=== PATIENT | male | born 1950 | race Caucasian/White ===

== ENCOUNTER → 2019-10-15 09:27 | Outpatient (CLI) | payer MEDICARE, SELFPAY ==
[2019-09-16 13:42] VITALS: BMI 27.0
--- NOTE | 2019-10-15 09:32 | ECHOD_ITS ---
Version 2 Reason For Study: Dyspnea/SOB Procedure This was a 2D Doppler, Color Flow transthoracic echocardiogram. Exam performed in department. Left Ventricle Normal LV size. The estimated ejection fraction is 40-45 %. Stage 2 diastolic dysfunction. There is moderate global hypokinesis of the left ventricle. Right Ventricle Normal RV size. Normal systolic function. Atria The left atrium is moderately enlarged. Normal right atrium. No doppler evidence for ASD. Mitral Valve There is no mitral valve stenosis. Mild (1+) mitral valve insufficiency. Tricuspid Valve There is no tricuspid stenosis. Mild tricuspid valve insufficiency. Pulmonary artery systolic pressure is 65 mmHg. Aortic Valve Trisinus/trileaflet aortic valve. Mild diffuse aortic valve thickening. There is no aortic stenosis. Trivial aortic valve insufficiency. Pulmonic Valve There is no pulmonic valvular stenosis. Trivial pulmonic valve insufficiency. Great Vessels Normal aortic root. Pericardium/Pleural No pericardial effusion. MMode/2D Measurements & Calculations LVIDd: 5.0 cm IVSd: 1.8 cm LA dimension: 4.8 cm LVIDs: 4.1 cm LVPWd: 1.2 cm RVDd: 5.3 cm FS: 19.3 % LAV(MOD-bp): 86.9 ml LVAd ap4: 43.8 cm2 SV(MOD-sp4): 51.2 ml LAV(MOD-bp) Indexed: 44.0 ml/m2 EDV(MOD-sp4): 159.1 ml LAV(MOD-sp2): 88.6 ml EDV(sp4-el): 166.2 ml LAV(MOD-sp4): 82.0 ml LVAs ap4: 35.9 cm2 ESV(MOD-sp4): 107.9 ml ESV(sp4-el): 112.8 ml EF(MOD-sp4): 32.2 % EF(sp4-el): 32.1 % SV(sp4-el): 53.4 ml LA A4 area: 24.5 cm2 RA A4 area: 17.2 cm2 Time Measurements MV dec time: 0.17 sec Doppler Measurements & Calculations MV E max diana: 115.9 cm/sec MV V2 max: 129.6 cm/sec MV P1/2t max diana: 130.3 cm/sec MV A max diana: 56.2 cm/sec MV max P.7 mmHg MV P1/2t: 96.6 msec MV E/A: 2.1 MV V2 mean: 64.7 cm/sec MV mean P.0 mmHg MV dec slope: 395.1 cm/sec2 MV V2 VTI: 36.8 cm MVA(P1/2t): 2.3 cm2 Ao V2 max: 143.7 cm/sec LV V1 max: 103.9 cm/sec MR max diana: 610.6 cm/sec Ao max P.3 mmHg LV V1 max P.3 mmHg MR max P.1 mmHg MR mean diana: 417.3 cm/sec MR mean P.0 mmHg MR VTI: 198.6 cm PA V2 max: 76.0 cm/sec TR max diana: 388.9 cm/sec TR max P.5 mmHg Interpretation Summary The estimated ejection fraction is 40-45 %. Stage 2 diastolic dysfunction. Mild (1+) mitral valve insufficiency. Mild tricuspid valve insufficiency. Pulmonary artery systolic pressure is 65 mmHg. Trivial aortic valve insufficiency. Mild diffuse aortic valve thickening. The left atrium is moderately enlarged. Ordering Physician: Medhat Dela Referring Physician: Medhat Deal Performed By: Matthew Kennedy RCS
== END ==
PROVIDERS: Family Provider Family Medicine; PCP Family Medicine; Referring Provider Specialist; Visit Provider Specialist
DX: R06.09 Other forms of dyspnea (principal)
CPT/HCPCS: 93306

== ENCOUNTER → 2019-10-25 14:22 | Outpatient (CLI) | payer MEDICARE, SELFPAY ==
[2019-09-16 13:42] VITALS: BMI 27.0
[2019-10-25 16:20] LABS: ALB/GLOB Ratio 1.4 RATIO (0.9-2.4); AST(SGOT) 18 U/L (15-37); Alanine Aminotransfer ALT/SGPT 19 U/L (16-61); Alkaline Phosphatase 70 U/L (45-117); Anion Gap 4 (5-15); BUN 21 mg/dL (7-18); BUN/Creat Ratio 18.6 RATIO (10-20); Calcium,Total 9.3 mg/dL (8.5-10.1); Chloride 103 mmol/L (98-107); Creatinine, Serum 1.13 mg/dL (0.70-1.30); EST Glomerular Filtration Rate 69 mL/min (>60); Est Glom Filt Rate - Afr Amer 83 mL/min (>60); Globulin 2.9 g/dL (2.2-4.2); Glucose 86 mg/dL (74-106); Potassium 3.6 mmol/L (3.5-5.1); Protein, Total 6.9 g/dL (6.4-8.2); Sodium Level 143 mmol/L (136-145)
== END ==
PROVIDERS: Family Provider Family Medicine; PCP Family Medicine; Referring Provider Specialist; Visit Provider Specialist
DX: I25.10 Atherosclerotic heart disease of native coronary artery without angina pectoris (principal); E78.5 Hyperlipidemia, unspecified; R60.9 Edema, unspecified; Z95.1 Presence of aortocoronary bypass graft; I10 Essential (primary) hypertension
CPT/HCPCS: 36415; 80053

== ENCOUNTER → 2019-12-05 06:51 | Outpatient (CLI) | payer MEDICARE, SELFPAY ==
[2019-11-19 14:04] VITALS: BMI 27.1
[2019-12-05 07:36] LABS: Anion Gap 3 (5-15); BUN 22 mg/dL (7-18); BUN/Creat Ratio 17.9 RATIO (10-20); Calcium,Total 9.5 mg/dL (8.5-10.1); Chloride 105 mmol/L (98-107); Creatinine, Serum 1.23 mg/dL (0.70-1.30); EST Glomerular Filtration Rate 62 mL/min (>60); Est Glom Filt Rate - Afr Amer 75 mL/min (>60); Glucose 101 mg/dL (74-106); Potassium 3.7 mmol/L (3.5-5.1); Sodium Level 141 mmol/L (136-145)
--- NOTE | 2019-12-05 14:38 | STRESSREP_ITS ---
Stress Test Report Date: 12/05/2019 Procedure: Exercise tolerance test/imaging study Indications: CAD status post CABG Consent: Per the patient Procedure: The patient exercised on a Jose Luis protocol for 8 minutes achieving a peak heart rate of 137 bpm (90 % predicted maximal heart rate) with a peak blood pressure 180/82 mmHg and a peak MET capacity of 10.1 METs. The baseline ECG demonstrated normal sinus rhythm, right bundle branch block, left anterior fascicular block. The peak exercise ECG demonstrated sinus tachycardia with no significant ischemic changes. EKG during recovery revealed no significant ischemic changes [There were no cardiac dysrhythmias pretest, during exercise, or recovery]. The functional capacity was considered normal for age. There was [no complaint of chest discomfort during exercise or recovery]. The examination was discontinued secondary to dyspnea. Impression: 1. Technically adequate (percent predicted maximal heart rate greater than 85%) exercise tolerance test 2. Stress test is negative for exercise-induced EKG changes of ischemia 3. The test test is negative for exercise-induced chest pain 4. Functional capacity is normal for age 5. Nuclear images pending Myocardial perfusion imaging study: Technique: The patient was injected with 12 mCi of technetium 99m Cardiolite and subs equently rest SPECT Cardiolite nuclear imaging was obtained in the horizontal long, vertical long, and short axis views. The patient exercised on a Jose Luis protocol. Please see above for details. The patient was injected with 34.6 mCi of technetium 99m Cardiolite and subsequently stress SPECT Cardiolite nuclear imaging was obtained in the horizontal long, vertical long, and short axis views. A gated Cardiolite study at peak stress was obtained. Interpretation: Rest and stress SPECT Cardiolite nuclear imaging status post realignment, normalization, and attenuation correction, demonstrates severely decreased to absent radioisotope uptake in the apex on both the rest and stress images. There is mildly decreased radioisotope uptake in the inferior wall on both the rest and stress images. The gated Cardiolite study demonstrates apical and inferior hypokinesis. The reported LVEF is 51 %. These findings are suggestive of prior inferior and apical myocardial infarction with no evidence of significant ischemia Impression: 1. There is no evidence of significant ischemia. Prior apical and inferior infarction. 2. The gated Cardiolite study reports an LVEF of 51 % with wall motion abnormalities as described This note was generated with [employer] software. It may contain incorrect words, spelling, and punctuation that were not noted in checking the note before signing.
== END ==
PROVIDERS: Family Provider Family Medicine; PCP Family Medicine; Referring Provider Specialist; Visit Provider Specialist
DX: I10 Essential (primary) hypertension (principal); I25.10 Atherosclerotic heart disease of native coronary artery without angina pectoris; I45.10 Unspecified right bundle-branch block; I42.9 Cardiomyopathy, unspecified; E78.5 Hyperlipidemia, unspecified; R06.09 Other forms of dyspnea; Z95.1 Presence of aortocoronary bypass graft
CPT/HCPCS: 36415; 78452; 80048; 93017; A9500; A4216

== ENCOUNTER 2021-04-09 10:23 | Inpatient (IN) | payer MEDICARE, SELFPAY ==
[2020-07-01 10:47] VITALS: BMI 27.3
[2021-04-09] VITALS (31 sets, daily range): BP systolic 75–226; BP diastolic 50–117; PULSE 60–111; RESP 12–91; TEMP 35.9–38; O2SAT 6–100; BMI 31.4; BMI 28.5
--- NOTE | 2021-04-09 10:26 | NURSING ---
NO OLD EKGS
--- NOTE | 2021-04-09 10:29 | RAD_ITS ---
STUDY: X-RAY CHEST REASON FOR EXAM: Male, 70 years old. Respiratory failure TECHNIQUE: Single AP portable view of the chest. COMPARISON: None. FINDINGS: Median sternotomy. CABG. Cardiomegaly with congestion. Aorta unremarkable. Multifocal hazy airspace opacities. No significant pleural effusions. Elevated left hemidiaphragm. Upper abdomen unremarkable. Osseous structures intact. No pneumothorax. RAD/Chest 1 View (Portable) IMPRESSION: CHF/fluid overload Airspace disease presumed edema Cardiomegaly with cardiac surgery Electronically Signed: Conrado Caal DO at 10:45 EDT Tel , Service support ,
--- NOTE | 2021-04-09 10:29 | EKG12_ITS ---
Test Reason : SOB Blood Pressure : / mmHG Vent. Rate : 101 BPM Atrial Rate : 101 BPM P-R Int : 180 ms QRS Dur : 148 ms QT Int : 378 ms P-R-T Axes : 052 268 059 degrees QTc Int : 490 ms Sinus tachycardia with frequent and consecutive Premature ventricular complexes Right bundle branch block Septal infarct , age undetermined Abnormal ECG Confirmed by PHILIP GARDNER, JAD ([id number]), technical writer and editor BEULAH GREEN ([id number]) on 04/13/2021 1:56:54 PM Referred By: AVINASH Confirmed By:JAD PALACIOS MD
--- NOTE | 2021-04-09 10:32 | ED.VIS.DYS ---
HPI History of Present Illness Chief Complaint: Shortness of Breath Informant: patient, family and EMS Onset/Context/Timing Onset: Hours Context: sudden Timing: Continuous Quality: Positive for - (Dyspnea at rest) Current Severity: Severe Maximum Severity: Severe Worsened by: Exertion and Lying flat Relieved by: Nothing Associated Symptoms Negative for cough, fever, sore throat, chills or sweats Chest Pain: Positive for None Narrative Narrative: Patient is an elderly male with multiple medical problems which include atherosclerotic coronary disease status post three-vessel bypass surgery in the remote past. Per old records he has history of LV dysfunction. He abruptly became short of breath. He denies chest discomfort. He denies infectious type symptoms. He denies rhinorrhea, congestion or postnasal drainage. No sore throat. He denies nausea, vomiting diarrhea. Denies black or maroon-colored stool. He does have dark-colored urine. He does have history of jaundice. He does have orthopnea. He denied PND. He does report edema of his lower extremities. He was unaware that he has a lenticular rash and that he has discoloration of his digits consistent with cyanosis. Per paramedics pulse ox was 71% on room air. Per old records he does have history of right bundle branch block which is noted on the prehospital EKG. PE Risk Factors: Negative for Cancer, Prior DVT or PE, Recent immobilization, Recent surgery and Recent travel Prior similar symptoms: No Recent Illness/Hospitalization: No PFSH PFS Medical History (Updated 04/09/21 @ 13:[address] Jose Luis Olivarez MD) Anxiety Atherosclerosis of coronary artery of [place] heart without angina pectoris CKD (chronic kidney disease) stage 2, GFR 60-89 ml/min Coronary artery disease Deafness in right ear Depression Dyspnea on exertion Edema Essential hypertension Gilbert syndrome Hearing loss, left History of hydrocele Hyperlipidemia Hypertension Myocardial infarct Non-smoker NSTEMI (non-ST elevated myocardial infarction) Orthopnea RBBB (right bundle branch block) Stroke/cerebrovascular accident Home Medications ascorbic acid (vitamin C) 1,000 mg tablet 1 g PO BID tab 09/11/19 [History Last Taken Unknown] aspirin 81 mg chewable tablet 81 mg PO DAILY 09/11/19 [History Last Taken Unknown] multivitamin-ferrous fumarate-folic acid 18 mg-400 mcg tablet 1 tab PO QAM 09/11/19 [History Last Taken Unknown] simvastatin 20 mg tablet 20 mg PO QHS 09/11/19 [History Last Taken Unknown] carvedilol 6.25 mg tablet 6.25 mg PO BID #60 tab 09/16/19 [Rx Last Taken Unknown] glucosamine-chondroitin 250 mg-200 mg tablet 2 tab PO DAILY tab 09/16/19 [History Last Taken Unknown] hydrochlorothiazide 50 mg tablet 50 mg PO DAILY 09/16/19 [History Last Taken Unknown] tamsulosin 0.4 mg capsule 0.4 mg PO DAILY 09/16/19 [History Last Taken Unknown] lisinopril 20 mg tablet 20 mg PO DAILY #30 tab 12/18/19 [Rx Last Taken Unknown] cetirizine [Zyrtec] 10 mg PO DAILY 04/09/21 [History Last Taken Unknown] guaifenesin [Mucinex] 600 mg PO BID 04/09/21 [History Last Taken Unknown] Allergy/AdvReac Type Severity Reaction Status Date / Time No Known Allergies Allergy Unverified 04/09/21 10:31 Family History Brother Heart disease Mother Cancer Brother Heart disease Brother Heart disease Brother Heart disease Brother Heart disease Brother Heart disease Myocardial infarction Surgical History History of bilateral cataract extraction (~09/2019) History of coronary artery bypass graft History of hernia repair History of hydrocelectomy Social History Smoking Status: Never smoker alcohol intake: never substance use type: does not use caffeine: Yes Type: carbonated beverages ROS ROS ED Review of Systems ROS Unobtainable: other Details: Patient in severe respiratory distress and responses are one-word. Daughter states he was not short of breath at 0800. Most of his responses were nodding yes or no. Constitutional Constitutional ED: Denies chills, fever(s) or sweats Eyes Eyes: Denies blurry vision, change in vision or diplopia ENT ENT ED: Denies ear pain, rhinorrhea or sore throat Cardiovascular Cardiovascular: Reports orthopnea; Denies chest pain, palpitations, paroxysmal nocturnal dyspnea or racing heartbeat Respiratory/Chest Respiratory/Chest: Reports dyspnea, dyspnea on exertion and orthopnea; Denies cough, paroxysmal nocturnal dyspnea or sputum Genitourinary Genitourinary ED: Denies dysuria, hematuria or urinary frequency Musculoskeletal Musculoskeletal: Denies arthralgias or myalgias Integumentary Denies rash Neurologic Neurologic: Denies headache(s) or weakness Psychiatric Psychiatric: Reports anxiety Endocrine Endocrinology: Denies polydipsia, polyphagia or polyuria Hematologic/Lymphatic Hematologic/Lymphatic: Denies easy bruising Allergic/Immunologic Allergic/Immunologic ED: Denies urticaria EXAM Physical Exam Const Vital Signs: 04/09/21 10:24 04/09/21 10:29 04/09/21 10:32 Temperature 96.7 F L Temperature Source Temporal Pulse Rate 111 H 104 H Respiratory Rate 91 H 45 H Respiratory Effort Short of Breath Labored Accessory Muscle Use Nasal Flaring Retracting Respiratory Depth Shallow Respiratory Pattern Tachypnea Blood Pressure 226/117 H 204/110 H Blood Pressure Mean 153 141 Blood Pressure Position Blood Pressure Location Pulse Ox 6 92 92 Oxygen Delivery Method Non-Rebreather Non-Rebreather Non-Rebreather Oxygen Flow Rate (L/min) 15 15 15 Fraction of Inspired Oxygen (FIO2) 100 100 100 04/09/21 10:43 04/09/21 10:45 04/09/21 10:48 Temperature Temperature Source Pulse Rate 100 84 Respiratory Rate 38 H 37 H Respiratory Effort Respiratory Depth Respiratory Pattern Blood Pressure 199/94 H Blood Pressure Mean 129 Blood Pressure Position Blood Pressure Location Pulse Ox 100 100 99 Oxygen Delivery Method Non-Rebreather Bi-pap Oxygen Flow Rate (L/min) 15 Fraction of Inspired Oxygen (FIO2) 100 60 60 04/09/21 10:55 04/09/21 11:14 04/09/21 11:15 Temperature Temperature Source Pulse Rate 86 86 Respiratory Rate 27 H 23 H Respiratory Effort Respiratory Depth Respiratory Pattern Blood Pressure 199/94 H 149/85 H Blood Pressure Mean 129 106 Blood Pressure Position Semi-Fowlers Blood Pressure Location Left Arm Pulse Ox 99 98 Oxygen Delivery Method Bi-pap Oxygen Flow Rate (L/min) Fraction of Inspired Oxygen (FIO2) 60 Positive well nourished and well developed General Appearance ED: well developed and other Patient is in significant respiratory distress breathing 40+ times a minute. Responses are one-word at best. Vital signs are noted. HEENT Reports dry mucous membranes HEENT Narrative: Trachea is midline. There is no inspiratory expiratory stridor. There is no appreciated bruit right or left. atraumatic; Negative for tenderness Mouth ED: Yes dry mucous membranes Mouth: dry mucous membranes Eyes PERRL and EOMs intact bilaterally General Eye ED: Yes scleral icterus; Negative for pale conjunctiva Neck no lymphadenopathy, supple and no meningeal signs General: Negative for tenderness Resp No normal respiratory effort and No clear to auscultation bilaterally Auscultation: rales right (Lower Quarter lung field) and left (Lower third lung field) and diminished lung sounds Cardio no murmurs Cardio Narrative: There are runs of nonsustained V. tach. Rate: tachycardic GI non-tender and no masses; Negative for non-distended Auscultation: hypoactive bowel sounds Palpation: soft; Negative for hepatomegaly or splenomegaly Back/Spine no CVA tenderness and normal to inspection Extremity Extremity Narrative: There is delayed capillary refill and cyanosis of digits upper and lower extremity. He has a lenticular rash. General Extremety ED: Yes edema General Extremity: edema Neuro CN's II-XII intact bilaterally and no sensory deficits noted Neuro Narrative: Gait, cerebellar testing and strength was not tested since patient is in obvious respiratory distress. Sensorium / Orientation: Negative for alert Psych Psych Narrative: Patient appears anxious. He looks to the person asking questions or asking him to do something. Skin General Skin Exam: jaundice Rashes: rashes noted Lenticular rash/mottled MDM MDM MDM Narrative Medical decision making narrative: Patient presents with respiratory failure. Will obtain ABG determine if he has hypoxia with hypercapnia. Since his mental status is diminished. Chest x-ray was obtained and to rule out pneumothorax, pneumonia versus congestive heart failure. If chest x-ray is unremarkable we will need to entertain possibility of pulmonary embolus since this occurred abruptly and his pulse ox per paramedics was 71% on room air. EKG was obtained to rule out acute ischemic changes. Appropriate blood work was obtained to rule out anemia, anion gap, renal function. Troponin and BNP were obtained to rule in/rule out cardiac etiology of his acute dyspnea. Chest x-ray reveals congestive heart failure. Patient was placed on nitro drip for acute decompensation of congestive heart failure. This may also represent hypertensive emergency causing pulmonary edema. Since he is fluid overloaded suspect the former not the latter. Blood gas reveals acute on chronic hypercapnia with significant AA gradient. He was placed on BiPAP. Will repeat ABG in 30 minutes. Patient will require admission to ICU. Lab Data Attestation: I reviewed the patient's lab results. Lab results narrative: The elevated white count is probably a stress response, and is a nonspecific abnormality. BNP is elevated. Troponin is elevated suspect due to heart strain from hypertension and congestive heart failure. Lactate is elevated probably due to hypoxia, type I lactic acidosis. Labs: Laboratory Results - last 24 hr 04/09/21 04/09/21 04/09/21 10:30 10:30 10:30 WBC 13.0 H RBC 5.30 Hgb 16.8 H Hct 51.1 MCV 96.4 H MCH 31.7 MCHC 32.9 RDW Std Deviation 50.2 H RDW Coeff of Lorrie 14.3 Plt Count 229 MPV 8.6 Immature Gran % (Auto) 0.400 Neut % (Auto) 75.3 H Lymph % (Auto) 10.1 L [place] % (Auto) 7.7 Eos % (Auto) 5.8 H Baso % (Auto) 0.7 Absolute Neuts (auto) 9.8 H Absolute Lymphs (auto) 1.32 Nucleated RBC % 0 Sodium 143 Potassium 4.2 Chloride 103 Carbon Dioxide 34.0 H Anion Gap 6 BUN 18 Creatinine 1.27 Estim Creat Clear Calc 53.11 Est GFR (MDRD) Af Amer 72 Est GFR (MDRD) Non-Af 60 BUN/Creatinine Ratio 14.2 Glucose 159 H Lactic Acid Calcium 9.1 Total Bilirubin 3.30 H AST 22 ALT 29 Alkaline Phosphatase 87 Troponin I 0.098 H B-Natriuretic Peptide 1710.9 H Total Protein 7.5 Albumin 4.2 Globulin 3.3 Albumin/Globulin Ratio 1.3 POC Glucose 04/09/21 04/09/21 10:32 10:36 WBC RBC Hgb Hct MCV MCH MCHC RDW Std Deviation RDW Coeff of Lorrie Plt Count MPV Immature Gran % (Auto) Neut % (Auto) Lymph % (Auto) [place] % (Auto) Eos % (Auto) Baso % (Auto) Absolute Neuts (auto) Absolute Lymphs (auto) Nucleated RBC % Sodium Potassium Chloride Carbon Dioxide Anion Gap BUN Creatinine Estim Creat Clear Calc Est GFR (MDRD) Af Amer Est GFR (MDRD) Non-Af BUN/Creatinine Ratio Glucose Lactic Acid 3.1 H* Calcium Total Bilirubin AST ALT Alkaline Phosphatase Troponin I B-Natriuretic Peptide Total Protein Albumin Globulin Albumin/Globulin Ratio POC Glucose 145 H ABG Data ABG results: ABG 04/09/21 10:48 Specimen Type ART Sample Site R Brach pH 7.21 L Bicarbonate Actual 34.2 H Total CO2 37 Base Excess 6 H O2 Saturation 100 H O2 % 100 ABG pCO2 85.5 H* ABG pO2 225 H O2 Delivery Device NRB Crit Call To/Read Back Yes Blood Gas Notified Whom Dr Jauregui Radiography Chest X-Ray - ED: 1 View, Read by ED Physician, Cardiomegaly and CHF Diagnostic Testing: Radiology Impression Chest X-Ray 04/09/21 10:29 IMPRESSION: CHF/fluid overload Airspace disease presumed edema Cardiomegaly with cardiac surgery Electronically Signed: Conrado Caal, DO at 10:45 EDT Tel , Service support , The portable chest x-ray was deferred by me at 1045. The sternotomy wires noted. There is no evidence of pneumothorax. Patient's findings are consistent with acute CHF/pulmonary edema. EKG Initial EKG: Interpretation: Sinus Tachycardia (Ventricular rate is 101. [place] interval is 180 ms. QS duration 148 ms. QT duration 378 ms. Bethany to the right. He has evidence of right bundle branch block. There are multiple premature ventricular complexes noted. There are couplets. The EKG is not normal.) Critical Care Time Critical Care Time: Yes Critical care time (excluding procedures): 30-74 minutes (37 minutes), Including time spent: (Obtaining history, physical examination, discussion with paramedics, review of prior records, interpretation of chest x-ray to initiate treatment for acute decompensation of congestive heart failure.), Discussing w/Patient &/or Family/Technology Program Manager, Discussing w/Consultants and Arranging Admission or Transfer Discharge Plan Dx/Rx/DC Orders Clinical Impression: Acute on chronic respiratory failure with hypoxia and hypercapnia, Pulmonary edema cardiac cause, Hypertensive urgency, Acidosis, lactic, Elevated troponin I level Disposition Disposition: [facility] Discharge Date/Time: 04/09/21 12:52
[2021-04-09 10:36] LABS: Absolute Lymphocyte Count 1.32 X10^3/uL (0.83-4.51); Absolute Neutrophil Count 9.8 X10^3/uL (2.0-7.7); Basophil# 0.09 X10^3/uL; Basophil% 0.7 % (0-1); Eosinophil# 0.76 X10^3/uL; Eosinophils% 5.8 % (0-5); Hematocrit 51.1 % (40-54); Hemoglobin 16.8 g/dL (13.0-16.5); Lymphocyte # 1.32 X10^3/ul (0.83-4.51); Lymphocyte % 10.1 % (19-41); Mean Corp Hgb Conc 32.9 g/dL (32-36); Mean Corpuscular Hgb 31.7 pg (27.0-32.0); Mean Corpuscular Volume 96.4 fL (80-94); Mean Platelet Vol. 8.6 fl (6.2-12.0); Monocyte% 7.7 % (0-10); NRBC Flagged by Analyzer 0 % (0-5); Neutrophil # 9.82 X10^3/uL (2.7-7.7); Neutrophil % 75.3 % (47-70); Platelet Count 229 K/mm3 (150-450); RBC Distribution Width CV 14.3 % (11.6-14.6); RBC Distribution Width SD 50.2 fl (35.1-43.9)
[2021-04-09 10:40] LABS: Bedside Glucose 145 mg/dL (70-110)
[2021-04-09] MEDS: Nitroglycerin Infusion 250 ML 3 MG CONT INF (10:55)
[2021-04-09 10:56] LABS: ALB/GLOB Ratio 1.3 RATIO (0.9-2.4); AST(SGOT) 22 U/L (15-37); Alanine Aminotransfer ALT/SGPT 29 U/L (16-61); Albumin, Serum 4.2 g/dL (3.2-5.0); Alkaline Phosphatase 87 U/L (45-117); Anion Gap 6 (5-15); BNP,B-Type NATRIURETIC PEPTIDE 1710.9 pg/mL (0-100); BUN 18 mg/dL (7-18); BUN/Creat Ratio 14.2 RATIO (10-20); Calcium,Total 9.1 mg/dL (8.5-10.1); Chloride 103 mmol/L (98-107); Creatinine, Serum 1.27 mg/dL (0.70-1.30); EST Glomerular Filtration Rate 60 mL/min (>60); Est Glom Filt Rate - Afr Amer 72 mL/min (>60); Estimated Creatinine Clearance 53.11 ml/min; Globulin 3.3 g/dL (2.2-4.2); Glucose 159 mg/dL (74-106); Potassium 4.2 mmol/L (3.5-5.1); Protein, Total 7.5 g/dL (6.4-8.2); Sodium Level 143 mmol/L (136-145)
[2021-04-09 10:56] LABS: Base Excess 6 mmol/L (-2 to +2); Bicarbonate 34.2 mmol/L (22-26); Blood Gas Specimen Type ART; FI02 100; O2 Delivery Device NRB; PO2 225 mmHG (75-100); SITE R Brach; SO2 100 % (95-99); Total Carbon Dioxide 37 mmol/L; pCO2 85.5 mmHg (35-45); pH 7.21 (7.35-7.45)
[2021-04-09 11:08] LABS: Lactic Acid 3.1 mmol/L (0.4-1.9)
[2021-04-09] MEDS: Furosemide 20 MG/2 ML VIAL IV (11:09)
--- NOTE | 2021-04-09 11:14 | CPS ---
FiO2 decreased to 45%.
--- NOTE | 2021-04-09 11:30 | NURSING ---
DR PATTEN FOR DR DA SILVA
[2021-04-09 11:40] LABS: Base Excess 7 mmol/L (-2 to +2); Bicarbonate 33.4 mmol/L (22-26); Blood Gas Specimen Type ART; FI02 45; O2 Delivery Device BiPAP; PO2 97 mmHG (75-100); SITE R Brach; SO2 96 % (95-99); Total Carbon Dioxide 36 mmol/L; pCO2 69.4 mmHg (35-45); pH 7.29 (7.35-7.45)
--- NOTE | 2021-04-09 11:43 | CPS ---
Critical blood gas results handed to Dr. Jauregui at 1143.
--- NOTE | 2021-04-09 11:44 | NURSING ---
ICU [facility] ACUTE ON CHRONIC RESP FAILURE, HYPERCAPNIA, HYPOXIA, PULM EDEMA
--- NOTE | 2021-04-09 12:10 | ED.RN ---
please contact daughter Shauna with any updates or when speaking to cardiology to help facilitate sharing information since her father has a difficult time understanding that information. [phone]
--- NOTE | 2021-04-09 12:58 | ECHOD_ITS ---
Reason For Study: PHTN Procedure This was a 2D Doppler, Color Flow transthoracic echocardiogram. The study was technically difficult. PT ON BiPAP & LYING SUPINE FOR EXAM. Contrast injection was performed. Exam performed portable in ICU/CCU. Left Ventricle Mildly dilated left ventricle. The estimated ejection fraction is EF 40-45% %. Right Ventricle Normal right ventricle. Atria The left atrium is mildly enlarged. Mitral Valve The mitral valve is structurally normal. No prolapse or stenosis seen. Mild (1+) mitral valve insufficiency. Tricuspid Valve Normal tricuspid valve. Mild (1+) tricuspid valve insufficiency. Aortic Valve Aortic sclerosis, no stenosis. Trivial aortic valve insufficiency. Pulmonic Valve The pulmonic valve is not well visualized. Great Vessels Normal aortic root. Pericardium/Pleural No pericardial effusion. Medication Diluted definity 3.0ml given slow IV push to enhance endocardial definition. MMode/2D Measurements & Calculations LVIDd: 5.7 cm IVSd: 1.5 cm Ao root diam: 3.4 cm LVIDs: 3.8 cm LVPWd: 1.3 cm RVDd: 4.2 cm FS: 32.4 % LAV(MOD-bp): 79.7 ml LA A4 area: 25.8 cm2 LA dimension(2D): 4.2 cm LAV(MOD-bp) Indexed: 38.4 ml/m2 LAV(MOD-sp2): 70.3 ml LAV(MOD-sp4): 90.7 ml RA A4 area: 18.9 cm2 Time Measurements MV dec time: 0.20 sec Doppler Measurements & Calculations MV E max ilia: 93.8 cm/sec Lat Peak E' Ilia: 2.2 cm/sec Med Peak E' Ilia: 2.6 cm/sec MV A max ilia: 74.7 cm/sec E/E' lat: 41.9 E/E' med: 35.7 MV E/A: 1.3 Ao V2 max: 155.2 cm/sec LV V1 max: 92.9 cm/sec PA V2 max: 69.8 cm/sec Ao max P.6 mmHg LV V1 max P.5 mmHg ECHO/Echo Complete W/ Contrast Interpretation Summary The estimated ejection fraction is EF 40-45% %. Mild Global LV Hypokinesia Mild MR Mild TR trivial AR No change from prior study in 10/15/2019 Ordering Physician: Martín Wells Referring Physician: Willie Performed By: Nicol Aden, BISHOP, RVT
--- NOTE | 2021-04-09 13:35 | CON.PCM.CC_ITS ---
Assessment & Plan Assessment/Plan (1) Acute on chronic respiratory failure with hypoxia and hypercapnia: (2) Pulmonary edema cardiac cause: (3) Atherosclerosis of coronary artery of [place] heart without angina pectoris: QUALIFIERS: Coronary Disease-Associated Artery/Lesion type: [place] artery Qualified Code(s): I25.10 - Atherosclerotic heart disease of [place] coronary artery without angina pectoris (4) Essential hypertension: (5) Hyperlipidemia: QUALIFIERS: Hyperlipidemia type: unspecified Qualified Code(s): E78.5 - Hyperlipidemia, unspecified (6) History of coronary artery bypass graft: (7) Gilbert syndrome: PLAN: RECOMMENDATIONS: 1. Continue BiPAP rescue as necessary 2. Wean supplemental oxygen 3. Reinitiate baseline medications in a stepwise fashion 4. Aggressive diuresis 5. CT of the chest once more volume/hemodynamically stable 6. Social work/case management to help with PCP IMPRESSIONS: 1. Acute combined respiratory failure secondary to probable hypertensive emergency with flash pulmonary edema Patient with bilateral infiltrates on chest x-ray and presented with significant hypertension and sudden onset. Unclear baseline respiratory function. Patient states he is not on supplemental oxygen at baseline, but does have a significantly elevated hemoglobin and bicarbonate. Patient is reporting a history of Boop but is never been on steroid therapy. Will attempt to obtain old records for clarification of underlying lung disease. Patient will be continued on BiPAP for now. Aggressive diuresis and blood pressure control will be paramount. BiPAP breaks as tolerated during the day, but would continue with sleep. Blood pressure medications will be reinitiated in a stepwise fashion. 2. Chronic hypercarbic respiratory failure Unclear etiology. Patient likely has an element of fluid overload at this time. Will attempt to optimize from a fluid status standpoint and then evaluate for possible underlying lung disease. Patient reports he has never been a smoker. Patient does have wheezing on exam. Patient will likely require an outpatient work-up with pulmonary function test. Clinical suspicion that supplemental oxygen may be required on discharge, but will need to keep sats between 90 and 95% to avoid decreased respiratory drive. Patient does have an element of eosinophilia and wheezing. Could initiate on steroid therapy, but this may cloud work-up of underlying connective tissue disease. 3. Acute combined congestive heart failure/elevated troponin Patient has been seen by Dr. Deal in the past. Patient's last ejection fraction was 45%. Patient does have some lower extremity edema and an elevated BNP suggestive of CHF. Patient will be reinitiated on beta-mauricio. DOMINIC inhibitor to start tomorrow. Patient is receiving aggressive diuresis. Clinical suspicion for elevated troponin secondary to global supply versus demand mismatch. 4. Acute kidney injury versus chronic kidney disease Baseline renal function is unclear at this time. Patient does have comorbid conditions that could lead to chronic kidney disease. Will attempt improvement in hemodynamics and obtain previous data. Hold 24 hours before initiating DOMINIC inhibitor given active diuresis. 5. Hypertension/hyperlipidemia/poor primary care access Complicates care, management, recovery and prognosis. Okay to reinitiate statin therapy. Patient does have some elevated bilirubin, but no jaundice or other signs of liver dysfunction. TIME: 32 minutes critical care time spent addressing patient's acute combined respiratory failure, congestive heart failure, hypertensive emergency, review of all data and collaboration with care team (12:30 PM to 2 PM) HPI Consult Data Date of Consult: 04/09/21 HPI Narrative HPI Narrative: DEVIN TORRES is a 70-year-old male, with a past medical history listed below, who presented to [facility] who presented to [facility] on 04/09/2021 secondary to sudden onset of worsening shortness of breath. This was worsened by exertion and lying flat and was relieved by nothing, so he came to the ER for evaluation. Patient does have an extensive cardiac history with a previous EF of 40 to 45%. Patient had denied any chest discomfort and had not had any constitutional symptoms such as fever, chills, nausea or vomiting in the last 4 to 5 days. Patient had noted that he had had some increased lower extremity edema. Patient had been noted to be 71% on room air by paramedics. In the ER, patient was afebrile at 96.7 ?F. However, patient was tachycardic at 111 bpm and hypertensive at 226/117. Patient was requiring a nonrebreather to maintain saturations. Chest x-ray showed bilateral infiltrates. Patient was in itiated on BiPAP therapy and a nitroglycerin drip. Patient was also given some Lasix and admitted to the intensive care unit. Since being the intensive care unit, patient is reportedly much improved compared to previous. Patient is currently denying any chest pain, but feels dyspnea at rest. Patient was attempted off of BiPAP therapy on 6 L nasal cannula and still had some conversational dyspnea. Patient is overall feeling improved. Patient is a relatively poor historian. Patient does report that he was asked to move from [place] to the regional hospital for respiratory and complex care by his daughter secondary to concerns for his health. Patient is not on supplemental oxygen at this time, but in the past had been on supplemental oxygen for reported Boop. Patient states he is never been seen by a development writer and was never placed on steroids. Patient does state that he was on multiple antihypertensives in the past, but has not used these in the last month secondary to a failure to establish with a PCP and running out of prescriptions. Patient states he has been short of breath since October. Patient does have a history of a previous stroke and myocardial infarction status post CABG. Patient denies ever being in the , exposure to TB/asbestos or drug use. Patient has never been a smoker and denies any significant travel history. Review of systems otherwise negative from a constitutional, HEENT, respiratory, cardiovascular, GI, genitourinary, musculoskeletal, skin, neurologic, psychiatric and hematologic system unless stated above. [facility] Medical History (Updated 04/09/21 @ 13:[address] Jose Luis Olivarez MD) Anxiety Atherosclerosis of coronary artery of [place] heart without angina pectoris CKD (chronic kidney disease) stage 2, GFR 60-89 ml/min Coronary artery disease Deafness in right ear Depression Dyspnea on exertion Edema Essential hypertension Gilbert syndrome Hearing loss, left History of hydrocele Hyperlipidemia Hypertension Myocardial infarct Non-smoker NSTEMI (non-ST elevated myocardial infarction) Orthopnea RBBB (right bundle branch block) Stroke/cerebrovascular accident Home Medications ascorbic acid (vitamin C) 1,000 mg tablet 1 g PO BID tab 09/11/19 [History Last Taken Unknown] aspirin 81 mg chewable tablet 81 mg PO DAILY 09/11/19 [History Last Taken Unknown] multivitamin-ferrous fumarate-folic acid 18 mg-400 mcg tablet 1 tab PO QAM 09/11/19 [History Last Taken Unknown] simvastatin 20 mg tablet 20 mg PO QHS 09/11/19 [History Last Taken Unknown] carvedilol 6.25 mg tablet 6.25 mg PO BID #60 tab 09/16/19 [Rx Last Taken Unknown] glucosamine-chondroitin 250 mg-200 mg tablet 2 tab PO DAILY tab 09/16/19 [History Last Taken Unknown] hydrochlorothiazide 50 mg tablet 50 mg PO DAILY 09/16/19 [History Last Taken Unknown] tamsulosin 0.4 mg capsule 0.4 mg PO DAILY 09/16/19 [History Last Taken Unknown] lisinopril 20 mg tablet 20 mg PO DAILY #30 tab 12/18/19 [Rx Last Taken Unknown] cetirizine [Zyrtec] 10 mg PO DAILY 04/09/21 [History Last Taken Unknown] guaifenesin [Mucinex] 600 mg PO BID 04/09/21 [History Last Taken Unknown] Allergy/AdvReac Type Severity Reaction Status Date / Time No Known Allergies Allergy Unverified 04/09/21 10:31 Family History Brother Heart disease Mother Cancer Brother Heart disease Brother Heart disease Brother Heart disease Brother Heart disease Brother Heart disease Myocardial infarction Surgical History History of bilateral cataract extraction (~09/2019) History of coronary artery bypass graft History of hernia repair History of hydrocelectomy Social History Smoking Status: Never smoker alcohol intake: never substance use type: does not use caffeine: Yes Type: carbonated beverages ROS ROS Narrative See HPI Physical Exam Const oriented x3 General Appearance: on BiPAP; Negative for in distress Orientation / Consciousness: awake Nutritional Appearance: overweight HEENT normocephalic and head/scalp atraumatic; Negative for moist oral mucous membranes Eyes PERRL, EOMs intact bilaterally and conjunctivae normal Eyes Narrative: Disconjugate gaze Neck full ROM Lymph Lymphatic: no lymphadenopathy noted Resp Effort and Inspection: tachypneic, labored, uses accessory muscles, audible wheezes and prolonged expiratory phase Auscultation: wheezes and diminished lung sounds; Negative for rales or rhonchi Percussion: percussion normal Cardio S1 normal heart sound, S2 normal heart sound, no murmurs, no rub, no gallops and no JVD Rate: tachycardic Rhythm: abnormal rhythm irregularly irregular GI normal to inspection, nondistended, normoactive bowel sounds Extremity General Extremity: edema bilateral (1+) lower extremity Peripheral Pulses: Yes radial pulses present Skin no rashes or lesions noted Neuro oriented x3 and CN's II-XII intact bilaterally Psych cooperative Psych Narrative: Anxious Lab / Micro Data Result Diagrams: 04/09/21 10:30 04/09/21 10:30 Labs: Laboratory Results - last 24 hr 04/09/21 04/09/21 04/09/21 10:30 10:30 10:30 WBC 13.0 H RBC 5.30 Hgb 16.8 H Hct 51.1 MCV 96.4 H MCH 31.7 MCHC 32.9 RDW Std Deviation 50.2 H RDW Coeff of [place] 14.3 Plt Count 229 MPV 8.6 Immature Gran % (Auto) 0.400 Neut % (Auto) 75.3 H Lymph % (Auto) 10.1 L [place] % (Auto) 7.7 Eos % (Auto) 5.8 H Baso % (Auto) 0.7 Absolute Neuts (auto) 9.8 H Absolute Lymphs (auto) 1.32 Nucleated RBC % 0 Sodium 143 Potassium 4.2 Chloride 103 Carbon Dioxide 34.0 H Anion Gap 6 BUN 18 Creatinine 1.27 Estim Creat Clear Calc 53.11 Est GFR (MDRD) Af Amer 72 Est GFR (MDRD) Non-Af 60 BUN/Creatinine Ratio 14.2 Glucose 159 H Lactic Acid Calcium 9.1 Total Bilirubin 3.30 H AST 22 ALT 29 Alkaline Phosphatase 87 Troponin I 0.098 H B-Natriuretic Peptide 1710.9 H Total Protein 7.5 Albumin 4.2 Globulin 3.3 Albumin/Globulin Ratio 1.3 POC Glucose 04/09/21 04/09/21 10:32 10:36 WBC RBC Hgb Hct MCV MCH MCHC RDW Std Deviation RDW Coeff of [place] Plt Count MPV Immature Gran % (Auto) Neut % (Auto) Lymph % (Auto) [place] % (Auto) Eos % (Auto) Baso % (Auto) Absolute Neuts (auto) Absolute Lymphs (auto) Nucleated RBC % Sodium Potassium Chloride Carbon Dioxide Anion Gap BUN Creatinine Estim Creat Clear Calc Est GFR (MDRD) Af Amer Est GFR (MDRD) Non-Af BUN/Creatinine Ratio Glucose Lactic Acid 3.1 H* Calcium Total Bilirubin AST ALT Alkaline Phosphatase Troponin I B-Natriuretic Peptide Total Protein Albumin Globulin Albumin/Globulin Ratio POC Glucose 145 H ABG Data ABG results: ABG 04/09/21 04/09/21 10:48 11:33 Specimen Type ART ART Sample Site R Brach R Brach pH 7.21 L 7.29 L Bicarbonate Actual 34.2 H 33.4 H Total CO2 37 36 Base Excess 6 H 7 H O2 Saturation 100 H 96 O2 % 100 45 ABG pCO2 85.5 H* 69.4 H* ABG pO2 225 H 97 O2 Delivery Device NRB BiPAP Crit Call To/Read Back Yes Yes Blood Gas Notified Whom Dr Jauregui Clinical Comments -8 Radiology Impression Chest X-Ray 04/09/21 10:29 IMPRESSION: CHF/fluid overload Airspace disease presumed edema Cardiomegaly with cardiac surgery Electronically Signed: Conrado Caal, DO at 10:45 EDT Tel , Service support , Previous echocardiogram showed an EF of 45% with elevated pulmonary artery pressures. No previous pulmonary function test available for review. Charges/Coding Procedures Hospitalists Procedures: 91366 Critial Care 1st Hr
[2021-04-09] MEDS: 0.9% Saline Lock 10 ML Syringe IV ×2 (13:41→21:31)
[2021-04-09] MEDS: Furosemide 40 MG/4 ML Vial IV ×2 (13:41→21:25)
--- NOTE | 2021-04-09 14:12 | PCM.HP.STD ---
HPI - General General Date of Admission: 04/09/21 HPI Narrative DEVIN TORRES, is a 70 M who presents to the hospital with worsening shortness of breath. He states that it is worse with activity and lying flat and it happened suddenly this morning while he was taking a shower. He denies any chest pain, or dizziness he did have some lightheadedness with the episode. In the ER he was found to be significantly hypertensive with systolic blood pressures at 226. He was given a dose of Lasix in the ER department and started on a nitroglycerin drip. He states that he moved up here from [place] and has not found a PCP yet and therefore stopped taking his blood pressure medications because he can get refills since September or October of last year. [facility] Medical History (Updated 04/09/21 @ 13:[address] Jose Luis Olivarez MD) Anxiety Atherosclerosis of coronary artery of [place] heart without angina pectoris CKD (chronic kidney disease) stage 2, GFR 60-89 ml/min Coronary artery disease Deafness in right ear Depression Dyspnea on exertion Edema Essential hypertension Gilbert syndrome Hearing loss, left History of hydrocele Hyperlipidemia Hypertension Myocardial infarct Non-smoker NSTEMI (non-ST elevated myocardial infarction) Orthopnea RBBB (right bundle branch block) Stroke/cerebrovascular accident Home Medications ascorbic acid (vitamin C) 1,000 mg tablet 1 g PO BID tab 09/11/19 [History Last Taken Unknown] aspirin 81 mg chewable tablet 81 mg PO DAILY 09/11/19 [History Last Taken Unknown] multivitamin-ferrous fumarate-folic acid 18 mg-400 mcg tablet 1 tab PO QAM 09/11/19 [History Last Taken Unknown] simvastatin 20 mg tablet 20 mg PO QHS 09/11/19 [History Last Taken Unknown] carvedilol 6.25 mg tablet 6.25 mg PO BID #60 tab 09/16/19 [Rx Last Taken Unknown] glucosamine-chondroitin 250 mg-200 mg tablet 2 tab PO DAILY tab 09/16/19 [History Last Taken Unknown] hydrochlorothiazide 50 mg tablet 50 mg PO DAILY 09/16/19 [History Last Taken Unknown] tamsulosin 0.4 mg capsule 0.4 mg PO DAILY 09/16/19 [History Last Taken Unknown] lisinopril 20 mg tablet 20 mg PO DAILY #30 tab 12/18/19 [Rx Last Taken Unknown] cetirizine [Zyrtec] 10 mg PO DAILY 04/09/21 [History Last Taken Unknown] guaifenesin [Mucinex] 600 mg PO BID 04/09/21 [History Last Taken Unknown] Allergy/AdvReac Type Severity Reaction Status Date / Time No Known Allergies Allergy Unverified 04/09/21 10:31 Family History Brother Heart disease Mother Cancer Brother Heart disease Brother Heart disease Brother Heart disease Brother Heart disease Brother Heart disease Myocardial infarction Surgical History History of bilateral cataract extraction (~09/2019) History of coronary artery bypass graft History of hernia repair History of hydrocelectomy Social History Smoking Status: Never smoker alcohol intake: never substance use type: does not use caffeine: Yes Type: carbonated beverages ROS Constitutional Constitutional: Denies chills or fatigue Eyes Eyes: Denies blurry vision or change in vision ENT HEENT: Denies abnormal hearing or headache(s) Cardiovascular Cardiovascular: Reports dyspnea on exertion; Denies chest pain or lightheadedness Respiratory/Chest Respiratory/Chest: Reports shortness of breath at rest and shortness of breath with exertion Gastrointestinal Gastrointestinal: Denies abdominal pain, nausea or vomiting Genitourinary Genitourinary: Denies dysuria Neurologic Neurologic: Denies focal weakness Psychiatric Psychiatric: Denies anxiety or depression Vital Signs Vital Signs Vital Signs: 04/09/21 10:24 04/09/21 10:29 04/09/21 10:32 Temperature 96.7 F L Temperature Source Temporal Pulse Rate 111 H 104 H Respiratory Rate 91 H 45 H Respiratory Effort Short of Breath Labored Accessory Muscle Use Nasal Flaring Retracting Respiratory Depth Shallow Respiratory Pattern Tachypnea Blood Pressure 226/117 H 204/110 H Blood Pressure Mean 153 141 Blood Pressure Source Blood Pressure Position Blood Pressure Location Pulse Ox 6 92 92 Oxygen Delivery Method Non-Rebreather Non-Rebreather Non-Rebreather Oxygen Flow Rate (L/min) 15 15 15 Fraction of Inspired Oxygen (FIO2) 100 100 100 04/09/21 10:43 04/09/21 10:45 04/09/21 10:48 Temperature Temperature Source Pulse Rate 100 84 Respiratory Rate 38 H 37 H Respiratory Effort Respiratory Depth Respiratory Pattern Blood Pressure 199/94 H Blood Pressure Mean 129 Blood Pressure Source Blood Pressure Position Blood Pressure Location Pulse Ox 100 100 99 Oxygen Delivery Method Non-Rebreather Bi-pap Oxygen Flow Rate (L/min) 15 Fraction of Inspired Oxygen (FIO2) 100 60 60 04/09/21 10:55 04/09/21 11:14 04/09/21 11:15 Temperature Temperature Source Pulse Rate 86 86 Respiratory Rate 27 H 23 H Respiratory Effort Respiratory Depth Respiratory Pattern Blood Pressure 199/94 H 149/85 H Blood Pressure Mean 129 106 Blood Pressure Source Blood Pressure Position Semi-Fowlers Blood Pressure Location Left Arm Pulse Ox 99 98 Oxygen Delivery Method Bi-pap Oxygen Flow Rate (L/min) Fraction of Inspired Oxygen (FIO2) 60 04/09/21 11:30 04/09/21 12:00 04/09/21 12:04 Temperature 98.3 F 98.3 F Temperature Source Temporal Temporal Pulse Rate 81 78 Respiratory Rate 29 H 24 H Respiratory Effort Respiratory Depth Respiratory Pattern Blood Pressure 133/84 H 115/70 115/70 Blood Pressure Mean 100 85 85 Blood Pressure Source Blood Pressure Position Semi-Fowlers Blood Pressure Location Left Arm Pulse Ox 97 99 Oxygen Delivery Method Bi-pap Bi-pap Oxygen Flow Rate (L/min) Fraction of Inspired Oxygen (FIO2) 04/09/21 13:05 04/09/21 13:13 04/09/21 13:15 Temperature 99.3 F H Temperature Source Core Pulse Rate 79 88 80 Respiratory Rate 25 H 22 H Respiratory Effort Respiratory Depth Respiratory Pattern Tachypnea Blood Pressure 154/99 H 156/105 H Blood Pressure Mean 117 122 Blood Pressure Source Monitor Monitor Blood Pressure Position Semi-Fowlers Semi-Fowlers Blood Pressure Location Left Arm Left Arm Pulse Ox 95 100 Oxygen Delivery Method Bi-pap Oxygen Flow Rate (L/min) Fraction of Inspired Oxygen (FIO2) 45 40 04/09/21 13:30 04/09/21 13:45 04/09/21 13:50 Temperature Temperature Source Pulse Rate 89 76 78 Respiratory Rate 29 H 23 H Respiratory Effort Respiratory Depth Respiratory Pattern Blood Pressure 168/90 H 133/87 H Blood Pressure Mean 116 102 Blood Pressure Source Monitor Monitor Blood Pressure Position Semi-Fowlers Semi-Fowlers Blood Pressure Location Left Arm Left Arm Pulse Ox 97 100 Oxygen Delivery Method Bi-pap Bi-pap Oxygen Flow Rate (L/min) Fraction of Inspired Oxygen (FIO2) 40 40 Weight Weight: 198 lb 13.711 oz Body Mass Index (BMI) 28.5 Physical Exam Const alert, oriented x3 and no apparent distress General Appearance: cooperative HEENT normocephalic and moist oral mucous membranes Eyes PERRL, EOMs intact bilaterally and conjunctivae normal Neck supple Resp normal respiratory effort Auscultation: Negative for crackles, rales, rhonchi or wheezes Cardio regular rate, regular rhythm, S1 normal heart sound, S2 normal heart sound and no murmurs GI soft to palpation, non-tender and non-distended; Negative for hepatosplenomegaly Extremity General Extremity: edema bilateral lower extremity Details: mild; Negative for clubbing or cyanosis Skin no rashes or lesions noted Neuro no focal motor deficits and no sensory deficits noted Psych affect normal Appearance: appropriate Lab / Micro Data Result Diagrams: 04/09/21 10:30 04/09/21 10:30 Labs: Laboratory Results - last 24 hr 04/09/21 04/09/21 04/09/21 10:30 10:30 10:30 WBC 13.0 H RBC 5.30 Hgb 16.8 H Hct 51.1 MCV 96.4 H MCH 31.7 MCHC 32.9 RDW Std Deviation 50.2 H RDW Coeff of [place] 14.3 Plt Count 229 MPV 8.6 Immature Gran % (Auto) 0.400 Neut % (Auto) 75.3 H Lymph % (Auto) 10.1 L [place] % (Auto) 7.7 Eos % (Auto) 5.8 H Baso % (Auto) 0.7 Absolute Neuts (auto) 9.8 H Absolute Lymphs (auto) 1.32 Nucleated RBC % 0 Sodium 143 Potassium 4.2 Chloride 103 Carbon Dioxide 34.0 H Anion Gap 6 BUN 18 Creatinine 1.27 Estim Creat Clear Calc 53.11 Est GFR (MDRD) Af Amer 72 Est GFR (MDRD) Non-Af 60 BUN/Creatinine Ratio 14.2 Glucose 159 H Lactic Acid Calcium 9.1 Total Bilirubin 3.30 H AST 22 ALT 29 Alkaline Phosphatase 87 Troponin I 0.098 H B-Natriuretic Peptide 1710.9 H Total Protein 7.5 Albumin 4.2 Globulin 3.3 Albumin/Globulin Ratio 1.3 POC Glucose 04/09/21 04/09/21 10:32 10:36 WBC RBC Hgb Hct MCV MCH MCHC RDW Std Deviation RDW Coeff of [place] Plt Count MPV Immature Gran % (Auto) Neut % (Auto) Lymph % (Auto) [place] % (Auto) Eos % (Auto) Baso % (Auto) Absolute Neuts (auto) Absolute Lymphs (auto) Nucleated RBC % Sodium Potassium Chloride Carbon Dioxide Anion Gap BUN Creatinine Estim Creat Clear Calc Est GFR (MDRD) Af Amer Est GFR (MDRD) Non-Af BUN/Creatinine Ratio Glucose Lactic Acid 3.1 H* Calcium Total Bilirubin AST ALT Alkaline Phosphatase Troponin I B-Natriuretic Peptide Total Protein Albumin Globulin Albumin/Globulin Ratio POC Glucose 145 H ABG Data ABG results: ABG 04/09/21 04/09/21 10:48 11:33 Specimen Type ART ART Sample Site R Brach R Brach pH 7.21 L 7.29 L Bicarbonate Actual 34.2 H 33.4 H Total CO2 37 36 Base Excess 6 H 7 H O2 Saturation 100 H 96 O2 % 100 45 ABG pCO2 85.5 H* 69.4 H* ABG pO2 225 H 97 O2 Delivery Device NRB BiPAP Crit Call To/Read Back Yes Yes Blood Gas Notified Whom Dr Jauregui Clinical Comments 8 Radiology Impression Chest X-Ray 04/09/21 10:29 IMPRESSION: CHF/fluid overload Airspace disease presumed edema Cardiomegaly with cardiac surgery Electronically Signed: Conrado Caal DO at 10:45 EDT Tel , Service support , Assessment & Plan Assessment/Plan (1) Acute on chronic respiratory failure with hypoxia and hypercapnia: (2) Pulmonary edema cardiac cause: (3) Hypertensive urgency: (4) Acidosis, lactic: (5) Elevated troponin I level: PLAN: 1. Acute on chronic hypoxic and hypercapnic respiratory failure secondary to flash pulmonary edema secondary to hypertensive urgency/elevated troponin/lactic acidosis -With systolics in the 200s with his past history of a pulmonary hypertension based on an echo in 2019 with a pulmonary systolic artery pressure of 60 mmHg, likely went into flash pulmonary edema this morning -Continue with aggressive diuresis, will not provide any fluids for his lactic acidosis as it should resolve once his cardiac function improves -Troponin is likely secondary to his flash pulmonary edema and his hypertensive urgency -Repeat echo 2. CAD status post CABG/HTN/HLD -Blood pressures are improving, will continue to monitor -Resume his home blood pressure medications -Resume statin 3. BPH -Stable -Continue with Flomax DVT: Lovenox Visit Charges Inpatient E&M: 43128 Init Hosp L3
[2021-04-09 14:47] LABS: Reflex Lactate? Y
[2021-04-09] MEDS: Carvedilol 6.25 MG Tablet PO ×2 (14:56→21:28)
[2021-04-09] MEDS: Aspirin 81 MG TAB.CHEW PO (14:56)
[2021-04-09] MEDS: Tamsulosin HCl 0.4 MG Capsule PO (14:56)
[2021-04-09 15:36] LABS: Lactic Acid 1.9 mmol/L (0.4-1.9)
[2021-04-09] MEDS: Atorvastatin Calcium 10 MG Tablet PO (21:28)
[2021-04-09] MEDS: guaiFENesin 600 MG Tablet PO (21:28)
[2021-04-10] VITALS (34 sets, daily range): BP systolic 74–167; BP diastolic 40–82; PULSE 53–93; RESP 12–38; TEMP 37.3–38.4; O2SAT 85–100
[2021-04-10 04:31] LABS: Absolute Lymphocyte Count 0.63 X10^3/uL (0.83-4.51); Absolute Neutrophil Count 5.7 X10^3/uL (2.0-7.7); Basophil# 0.04 X10^3/uL; Basophil% 0.5 % (0-1); Eosinophils% 5.5 % (0-5); Hematocrit 42.9 % (40-54); Hemoglobin 14.1 g/dL (13.0-16.5); Lymphocyte # 0.63 X10^3/ul (0.83-4.51); Lymphocyte % 8.6 % (19-41); Mean Corp Hgb Conc 32.9 g/dL (32-36); Mean Corpuscular Hgb 31.6 pg (27.0-32.0); Mean Corpuscular Volume 96.2 fL (80-94); Mean Platelet Vol. 8.6 fl (6.2-12.0); Monocyte# 0.48 X10^3/uL; Monocyte% 6.6 % (0-10); NRBC Flagged by Analyzer 0 % (0-5); Neutrophil # 5.74 X10^3/uL (2.7-7.7); Neutrophil % 78.5 % (47-70); Platelet Count 160 K/mm3 (150-450); RBC Distribution Width CV 13.9 % (11.6-14.6); RBC Distribution Width SD 48.9 fl (35.1-43.9); Red Blood Count 4.46 M/mm3 (4.6-6.2); White Blood Count 7.3 K/mm3 (4.4-11.0)
[2021-04-10 04:42] LABS: Anion Gap 3 (5-15); BUN 23 mg/dL (7-18); BUN/Creat Ratio 16.3 RATIO (10-20); Calcium,Total 8.5 mg/dL (8.5-10.1); Chloride 102 mmol/L (98-107); Creatinine, Serum 1.41 mg/dL (0.70-1.30); EST Glomerular Filtration Rate 53 mL/min (>60); Est Glom Filt Rate - Afr Amer 64 mL/min (>60); Estimated Creatinine Clearance 51.05 ml/min; Glucose 120 mg/dL (74-106); Potassium 4.5 mmol/L (3.5-5.1); Sodium Level 144 mmol/L (136-145)
--- NOTE | 2021-04-10 06:18 | PCM.PN.INT ---
Assessment & Plan Assessment/Plan (1) Hypertensive urgency: PLAN: RECOMMENDATIONS: 1. Consider de-escalation in Lasix regimen given hypotension and increasing creatinine. 2. Wean supplemental oxygen as tolerated to maintain saturations at or above 90%. 3. Encourage incentive spirometer use and mobilize patient as tolerated. 4. Recommend outpatient pulmonary follow-up after discharge. 5. The patient is medically stable for transfer out of the intensive care unit. IMPRESSIONS: 1. Acute combined respiratory failure secondary to probable hypertensive emergency with flash pulmonary edema The patient presented with bilateral infiltrates on chest x-ray and presented with significant hypertension and sudden onset. Unclear baseline respiratory function. The patient was initially maintained on noninvasive positive pressure ventilatory support, nitro infusion and Lasix. He has improved from a respiratory perspective. 2. Acute combined congestive heart failure/elevated troponin The patient has been seen by Dr. Deal in the past. Patient's last ejection fraction was 45%. Patient does have some lower extremity edema and an elevated BNP suggestive of CHF. Clinical suspicion for elevated troponin secondary to global supply versus demand mismatch. 3. Acute kidney injury versus chronic kidney disease Baseline renal function is unclear at this time. Patient does have comorbid conditions that could lead to chronic kidney disease. 4. Hypertension/hyperlipidemia/poor primary care access Complicates care, management, recovery and prognosis. Okay to reinitiate statin therapy. This note was generated with Medium dictation software. It may contain incorrect words, spelling, and punctuation that were not noted in checking the note before signing. Subjective Subjective The patient was seen and examined at the bedside this morning. Events from the last 24 hours have been reviewed. The patient currently has a low-grade fever but remains hemodynamically stable. He is maintaining appropriate oxygen saturation on 3 L/min. The patient has been off of the nitro infusion since yesterday. Per nursing report, the patient did experience transient hypotension overnight after he received his evening dose of Lasix and Coreg. The patient is currently documented to be overall net -1.7 L for the hospital admission. Creatinine has increased to 1.4 this morning. The patient denies any shortness of breath. Objective Data Objective Data The patient's most recent lab work, culture data and imaging studies have all been personally reviewed. Surface echocardiogram from April 09 revealed a mildly dilated LV with an ejection fraction of 40 to 45%. Vital Signs: Vital Signs Temp Pulse Resp BP Pulse Ox 99.3 F H 64 38 H 114/68 95 04/10/21 06:00 04/10/21 06:00 04/10/21 06:00 04/10/21 06:00 04/10/21 06:00 Oxygen Flow Rate (L/min) 3 Oxygen Delivery Method Nasal Cannula Weight: 190 lb 7.67 oz Body Mass Index (BMI) 28.5 Intake & Output: Intake and Output for Last 24 Hours 04/08/21 04/09/21 04/10/21 23:59 23:59 23:59 Intake Total 466.25 / 466.25 Output Total 1875 / 1925 300 / 300 Balance -1408.75 / -1458.75 -300 / -300 Lab / Micro Data Attestation: I reviewed the patient's lab results. Result Diagrams: 04/10/21 04:20 04/10/21 04:20 Labs: Laboratory Results - last 24 hr 04/09/21 04/09/21 04/09/21 10:30 10:30 10:30 WBC 13.0 H RBC 5.30 Hgb 16.8 H Hct 51.1 MCV 96.4 H MCH 31.7 MCHC 32.9 RDW Std Deviation 50.2 H RDW Coeff of Lorrie 14.3 Plt Count 229 MPV 8.6 Immature Gran % (Auto) 0.400 Neut % (Auto) 75.3 H Lymph % (Auto) 10.1 L [place] % (Auto) 7.7 Eos % (Auto) 5.8 H Baso % (Auto) 0.7 Absolute Neuts (auto) 9.8 H Absolute Lymphs (auto) 1.32 Nucleated RBC % 0 Sodium 143 Potassium 4.2 Chloride 103 Carbon Dioxide 34.0 H Anion Gap 6 BUN 18 Creatinine 1.27 Estim Creat Clear Calc 53.11 Est GFR (MDRD) Af Amer 72 Est GFR (MDRD) Non-Af 60 BUN/Creatinine Ratio 14.2 Glucose 159 H Lactic Acid Calcium 9.1 Total Bilirubin 3.30 H AST 22 ALT 29 Alkaline Phosphatase 87 Troponin I 0.098 H B-Natriuretic Peptide 1710.9 H Total Protein 7.5 Albumin 4.2 Globulin 3.3 Albumin/Globulin Ratio 1.3 POC Glucose 04/09/21 04/09/21 04/09/21 10:32 10:36 15:00 WBC RBC Hgb Hct MCV MCH MCHC RDW Std Deviation RDW Coeff of Lorrie Plt Count MPV Immature Gran % (Auto) Neut % (Auto) Lymph % (Auto) [place] % (Auto) Eos % (Auto) Baso % (Auto) Absolute Neuts (auto) Absolute Lymphs (auto) Nucleated RBC % Sodium Potassium Chloride Carbon Dioxide Anion Gap BUN Creatinine Estim Creat Clear Calc Est GFR (MDRD) Af Amer Est GFR (MDRD) Non-Af BUN/Creatinine Ratio Glucose Lactic Acid 3.1 H* 1.9 Calcium Total Bilirubin AST ALT Alkaline Phosphatase Troponin I B-Natriuretic Peptide Total Protein Albumin Globulin Albumin/Globulin Ratio POC Glucose 145 H 04/10/21 04/10/21 04:20 04:20 WBC 7.3 RBC 4.46 L Hgb 14.1 Hct 42.9 MCV 96.2 H MCH 31.6 MCHC 32.9 RDW Std Deviation 48.9 H RDW Coeff of Lorrie 13.9 Plt Count 160 MPV 8.6 Immature Gran % (Auto) 0.300 Neut % (Auto) 78.5 H Lymph % (Auto) 8.6 L [place] % (Auto) 6.6 Eos % (Auto) 5.5 H Baso % (Auto) 0.5 Absolute Neuts (auto) 5.7 Absolute Lymphs (auto) 0.63 L Nucleated RBC % 0 Sodium 144 Potassium 4.5 Chloride 102 Carbon Dioxide 39.0 H Anion Gap 3 L BUN 23 H Creatinine 1.41 H Estim Creat Clear Calc 51.05 Est GFR (MDRD) Af Amer 64 Est GFR (MDRD) Non-Af 53 L BUN/Creatinine Ratio 16.3 Glucose 120 H Lactic Acid Calcium 8.5 Total Bilirubin AST ALT Alkaline Phosphatase Troponin I B-Natriuretic Peptide Total Protein Albumin Globulin Albumin/Globulin Ratio POC Glucose ABG Data ABG results: ABG 04/09/21 04/09/21 10:48 11:33 Specimen Type ART ART Sample Site R Brach R Brach pH 7.21 L 7.29 L Bicarbonate Actual 34.2 H 33.4 H Total CO2 37 36 Base Excess 6 H 7 H O2 Saturation 100 H 96 O2 % 100 45 ABG pCO2 85.5 H* 69.4 H* ABG pO2 225 H 97 O2 Delivery Device NRB BiPAP Crit Call To/Read Back Yes Yes Blood Gas Notified Whom Dr Jauregui Clinical Comments 20-8 Radiography Diagnostic Testing: Radiology Impression Chest X-Ray 04/09/21 10:29 IMPRESSION: CHF/fluid overload Airspace disease presumed edema Cardiomegaly with cardiac surgery Electronically Signed: Conrado Caal DO at 10:45 EDT Tel , Service support , Echocardiogram 04/09/21 12:58 Interpretation Summary The estimated ejection fraction is EF 40-45% %. Mild Global LV Hypokinesia Mild MR Mild TR trivial AR No change from prior study in 10/15/2019 Ordering Physician: Martín Wells Referring Physician: Willie Performed By: Nicol Aden, BISHOP, RVT Physical Exam Const alert and oriented x3 General Appearance: cooperative HEENT normocephalic and head/scalp atraumatic Eyes PERRL, EOMs intact bilaterally and conjunctivae normal Neck supple General: trachea midline Resp Effort and Inspection: able to speak in complete sentences and tachypneic Auscultation: diminished lung sounds; Negative for rales, rhonchi or wheezes Cardio regular rate and regular rhythm GI normal to inspection, nondistended, normoactive bowel sounds Extremity General Extremity: edema bilateral Skin no rashes or lesions noted Neuro oriented x3, CN's II-XII intact bilaterally and moves all extremities Psych cooperative and affect normal Charges/Coding Visit Charges Inpatient E&M: 38621 Subs Hosp L2
[2021-04-10] MEDS: Lisinopril 20 MG Tablet PO (10:43)
[2021-04-10] MEDS: Tamsulosin HCl 0.4 MG Capsule PO (10:44)
[2021-04-10] MEDS: Furosemide 40 MG/4 ML Vial IV (10:44)
[2021-04-10] MEDS: Aspirin 81 MG TAB.CHEW PO (10:44)
[2021-04-10] MEDS: Carvedilol 6.25 MG Tablet PO (10:44)
[2021-04-10] MEDS: guaiFENesin 600 MG Tablet PO ×2 (10:44→21:20)
[2021-04-10] MEDS: Enoxaparin 40 MG/0.4 ML Syringe SC (10:45)
--- NOTE | 2021-04-10 11:22 | NURSING ---
Brown stringy material noted to urine, will continue to monitor. MD to be notified.
--- NOTE | 2021-04-10 12:10 | PN.HOSP_ITS ---
Subjective Subjective Patient seen and examined. He was admitted with a complaint of shortness of breath and is being managed for acute on chronic hypercapnic and hypoxic respiratory failure due to flash pulmonary edema. He still complains of shortness of breath, though he says it is much better. He is on 4L of oxygen. Review of systems is otherwise negative. Objective Data Objective Data Vital Signs: Vital Signs Temp Pulse Resp BP Pulse Ox 100.2 F H 79 12 143/64 H 93 04/10/21 11:25 04/10/21 11:00 04/10/21 11:00 04/10/21 11:00 04/10/21 11:00 Oxygen Flow Rate (L/min) 4 Oxygen Delivery Method Nasal Cannula Weight: 190 lb 7.67 oz Body Mass Index (BMI) 28.5 Intake & Output: Intake and Output for Last 24 Hours 04/08/21 04/09/21 04/10/21 23:59 23:59 23:59 Intake Total 466.25 / 466.25 Output Total 1875 / 1925 300 / 300 Balance -1408.75 / -1458.75 -300 / -300 Lab / Micro Data Result Diagrams: 04/10/21 04:20 04/10/21 04:20 Labs: Laboratory Results - last 24 hr 04/09/21 04/10/21 04/10/21 15:00 04:20 04:20 WBC 7.3 RBC 4.46 L Hgb 14.1 Hct 42.9 MCV 96.2 H MCH 31.6 MCHC 32.9 RDW Std Deviation 48.9 H RDW Coeff of Lorrie 13.9 Plt Count 160 MPV 8.6 Immature Gran % (Auto) 0.300 Neut % (Auto) 78.5 H Lymph % (Auto) 8.6 L [place] % (Auto) 6.6 Eos % (Auto) 5.5 H Baso % (Auto) 0.5 Absolute Neuts (auto) 5.7 Absolute Lymphs (auto) 0.63 L Nucleated RBC % 0 Sodium 144 Potassium 4.5 Chloride 102 Carbon Dioxide 39.0 H Anion Gap 3 L BUN 23 H Creatinine 1.41 H Estim Creat Clear Calc 51.05 Est GFR (MDRD) Af Amer 64 Est GFR (MDRD) Non-Af 53 L BUN/Creatinine Ratio 16.3 Glucose 120 H Lactic Acid 1.9 Calcium 8.5 Radiography Diagnostic Testing: Radiology Impression Echocardiogram 04/09/21 12:58 Interpretation Summary The estimated ejection fraction is EF 40-45% %. Mild Global LV Hypokinesia Mild MR Mild TR trivial AR No change from prior study in 10/15/2019 Ordering Physician: Martín Wells Referring Physician: Willie Performed By: Nicol Aden, BISHOP, RVT Physical Exam Const alert, oriented x3 and no apparent distress Orientation / Consciousness: lethargic Exam Limitations: no limitations HEENT head/scalp atraumatic, moist oral mucous membranes and oropharynx normal Head and Scalp: normocephalic Eyes PERRL, EOMs intact bilaterally and conjunctivae normal Neck no lymphadenopathy Resp Resp Narrative: diminished breath sounds bibasally, few crackles. On 4L of oxygen by nasal canula. Mildly tachypneic Cardio regular rate, regular rhythm, S1 normal heart sound and S2 normal heart sound GI normal to inspection, nondistended, normoactive bowel sounds, soft to palpation, non-tender and non-distended Extremity normal to inspection and full ROM Peripheral Pulses: Yes pulses 2+ throughout and brachial pulses present Skin no rashes or lesions noted Neuro oriented x3, CN's II-XII intact bilaterally and moves all extremities Sensorium / Orientation: awake and alert Psych affect normal Assessment & Plan Assessment/Plan (1) Acute on chronic respiratory failure with hypoxia and hypercapnia: (2) Hypertensive urgency: (3) Acidosis, lactic: (4) Elevated troponin I level: PLAN: #Acute on chronic respiratory failure due to flash pulmonary edema * Now on 4 L of oxygen. Shortness of breath has improved significantly. Blood pressure has also trended down. * Continue diuresis with IV Lasix. * -2D echo pending. * #Acute flash pulmonary edema and hypertensive emergency * Blood pressures up in the 200s systolic. Previous echo showed pulmonary artery systolic pressure of 60 mmHg. * Shortness of breath now better. Management as above. Repeat 2D echo pending * on IV lasix 40mg 8hrly * #Elevated troponins * troponin was elevated. This was thought to be due to the hypertensive emerge ncy * 2d Echo pending * SL nitroglycerin prn * PO aspirin 81mg daily * * #BPH: on flomax CAD s/p CABG: continue current meds of aspirin and carvedilol as well as statin and lisinopril #Hypertension: on carvedilol and HCTZ as well as lisinopril DVT prophylaxis; lovenox Visit Charges Inpatient E&M: 90001 [facility] Hosp L3
--- NOTE | 2021-04-10 13:30 | CASEMGMT ---
MILY XIONG Assessment: MILY XIONG in to pt room for initial transition planning/care coordination assessment. MILY XIONG introduced self and role at [facility], pt voices understanding and consents to assessment. Pt sitting up in chair with O2 on in no distress. Care providers, pharmacy, and demographics verified/updated. 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 [facility]erred [facility]acy: [facility] Insurance: [facility] Prescription Benefit: yes LW/HPOA: Pt denies having a LW/DPOA. LNOK: Shauna Lewis, dtr Living Arrangements: Pt lives in daughter's home but has his own apartment on the first floor. Pt dtr's family lives there as well. There are 3 steps to enter with a rail. Pt states he is I in ADL's. Pt denies concerns at home. Transportation: Pt states he can drive but chooses not to. His dtr transports him to appts. Denies concerns with transportation. DME/HHC/SNF: Pt has canes, grab bars at toilet and shower in the bathroom. Pt denies any previous HHC or SNF stays. Noted therapy is recommending HHC at dc. Pt states he would be agreeable to this. SN for htn urgency dx. Pt does not use O2 in the home. Pt defers choices to his dtr for agencies. Pt states no further concerns/needs. CM to follow therapy and O2 needs. Advised pt to contact CM if any further question/concerns/needs arise, voices understanding. Pt Goal: Home Plan: Home with HHC therapy, follow for O2. [id number] to pt dtr to discuss agencies for HHC and DME if pt should need O2 when going home. Patient dtr was provided a list of HHC and DME providers including quality and resource use data and consistent with the patient?s preferred geographic region, medical needs, and insurance network via phone verbally. Pt dtr preferred providers were providers affiliated with [facility]; [facility] and [facility] placed on chart in case pt should dc over w/e or holiday. TC to [facility], left message on intake line,forwarded to Deborah, with referal for SN, PT and OT.
[2021-04-10] MEDS: Atorvastatin Calcium 10 MG Tablet PO (21:20)
[2021-04-11] VITALS (20 sets, daily range): BP systolic 103–141; BP diastolic 49–81; PULSE 58–92; RESP 18–32; TEMP 36.8–37.9; O2SAT 93–100
[2021-04-11 04:31] LABS: Absolute Lymphocyte Count 0.75 X10^3/uL (0.83-4.51); Absolute Neutrophil Count 4.9 X10^3/uL (2.0-7.7); Basophil# 0.04 X10^3/uL; Basophil% 0.6 % (0-1); Eosinophil# 0.53 X10^3/uL; Eosinophils% 7.7 % (0-5); Hematocrit 43.5 % (40-54); Hemoglobin 14.1 g/dL (13.0-16.5); Lymphocyte # 0.75 X10^3/ul (0.83-4.51); Lymphocyte % 10.9 % (19-41); Mean Corp Hgb Conc 32.4 g/dL (32-36); Mean Corpuscular Hgb 31.3 pg (27.0-32.0); Mean Corpuscular Volume 96.5 fL (80-94); Mean Platelet Vol. 8.6 fl (6.2-12.0); Monocyte# 0.59 X10^3/uL; Monocyte% 8.6 % (0-10); NRBC Flagged by Analyzer 0 % (0-5); Neutrophil # 4.93 X10^3/uL (2.7-7.7); Neutrophil % 71.9 % (47-70); Platelet Count 147 K/mm3 (150-450); RBC Distribution Width CV 14.1 % (11.6-14.6); RBC Distribution Width SD 49.8 fl (35.1-43.9); Red Blood Count 4.51 M/mm3 (4.6-6.2); White Blood Count 6.9 K/mm3 (4.4-11.0)
[2021-04-11 04:44] LABS: Anion Gap 3 (5-15); BUN 32 mg/dL (7-18); Calcium,Total 8.4 mg/dL (8.5-10.1); Chloride 101 mmol/L (98-107); Creatinine, Serum 1.28 mg/dL (0.70-1.30); EST Glomerular Filtration Rate 59 mL/min (>60); Est Glom Filt Rate - Afr Amer 72 mL/min (>60); Estimated Creatinine Clearance 56.24 ml/min; Glucose 102 mg/dL (74-106); Potassium 4.3 mmol/L (3.5-5.1); Sodium Level 143 mmol/L (136-145)
--- NOTE | 2021-04-11 05:45 | PCM.PN.INT ---
Assessment & Plan Assessment/Plan (1) Hypertensive urgency: PLAN: RECOMMENDATIONS: 1. Continue diuretics as tolerated by hemodynamics and renal function. Consider transitioning to p.o. regimen. 2. Wean supplemental oxygen as tolerated to maintain saturations at or above 90%. 3. Encourage incentive spirometer use and mobilize patient as tolerated. 4. Recommend outpatient pulmonary follow-up after discharge. 5. The patient is medically stable for transfer out of the intensive care unit. IMPRESSIONS: 1. Acute combined respiratory failure secondary to probable hypertensive emergency with flash pulmonary edema The patient presented with bilateral infiltrates on chest x-ray and presented with significant hypertension and sudden onset. Unclear baseline respiratory function. The patient was initially maintained on noninvasive positive pressure ventilatory support, nitro infusion and Lasix. He has improved from a respiratory perspective. Plan to continue diuretic regimen as tolerated by hemodynamics and renal function. 2. Acute combined congestive heart failure/elevated troponin The patient has been seen by Dr. Deal in the past. Patient's last ejection fraction was 45%. Patient does have some lower extremity edema and an elevated BNP suggestive of CHF. Clinical suspicion for elevated troponin secondary to global supply versus demand mismatch. 3. Acute kidney injury versus chronic kidney disease Baseline renal function is unclear at this time. Patient does have comorbid conditions that could lead to chronic kidney disease. 4. Hypertension/hyperlipidemia/poor primary care access Complicates care, management, recovery and prognosis. Okay to continue statin therapy. This note was generated with [employer]ck dictation software. It may contain incorrect words, spelling, and punctuation that were not noted in checking the note before signing. Subjective Subjective The patient was seen and examined at the bedside this morning. Events from the last 24 hours have been reviewed. The patient is currently afebrile, hemodynamically stable and maintaining appropriate oxygen saturations on 2 L/min via nasal cannula. The patient is currently documented to be overall net -2.1 L for the hospital admission. Creatinine has improved this morning to 1.28. The patient once again denies any shortness of breath or cough. Objective Data Objective Data The patient's most recent lab work, culture data and imaging studies have all been personally reviewed. Surface echocardiogram from April 09 revealed a mildly dilated LV with an ejection fraction of 40 to 45%. Vital Signs: Vital Signs Temp Pulse Resp BP Pulse Ox 99.9 F H 69 31 H 118/68 95 04/11/21 04:00 04/11/21 05:00 04/11/21 05:00 04/11/21 05:00 04/11/21 05:00 Oxygen Flow Rate (L/min) 4 Oxygen Delivery Method Nasal Cannula Weight: 192 lb 10.944 oz Body Mass Index (BMI) 28.5 Intake & Output: Intake and Output for Last 24 Hours 04/09/21 04/10/21 04/11/21 23:59 23:59 23:59 Intake Total 466.25 / 466.25 160 / 160 Output Total 1875 / 1925 800 / 800 100 / 100 Balance -1408.75 / -1458.75 -640 / -640 -100 / -100 Lab / Micro Data Result Diagrams: 04/11/21 04:20 04/11/21 04:20 Labs: Laboratory Results - last 24 hr 04/11/21 04/11/21 04:20 04:20 WBC 6.9 RBC 4.51 L Hgb 14.1 Hct 43.5 MCV 96.5 H MCH 31.3 MCHC 32.4 RDW Std Deviation 49.8 H RDW Coeff of Lorrie 14.1 Plt Count 147 L MPV 8.6 Immature Gran % (Auto) 0.300 Neut % (Auto) 71.9 H Lymph % (Auto) 10.9 L [place] % (Auto) 8.6 Eos % (Auto) 7.7 H Baso % (Auto) 0.6 Absolute Neuts (auto) 4.9 Absolute Lymphs (auto) 0.75 L Nucleated RBC % 0 Sodium 143 Potassium 4.3 Chloride 101 Carbon Dioxide 39.0 H Anion Gap 3 L BUN 32 H Creatinine 1.28 Estim Creat Clear Calc 56.24 Est GFR (MDRD) Af Amer 72 Est GFR (MDRD) Non-Af 59 L BUN/Creatinine Ratio 25.0 H Glucose 102 Calcium 8.4 L Physical Exam Const alert and oriented x3 General Appearance: cooperative HEENT normocephalic and head/scalp atraumatic Eyes PERRL, EOMs intact bilaterally and conjunctivae normal Neck supple General: trachea midline Resp Effort and Inspection: able to speak in complete sentences and tachypneic Auscultation: diminished lung sounds; Negative for rales, rhonchi or wheezes Cardio regular rate and regular rhythm GI normal to inspection, nondistended, normoactive bowel sounds Extremity General Extremity: edema bilateral Skin no rashes or lesions noted Neuro oriented x3, CN's II-XII intact bilaterally and moves all extremities Psych cooperative and affect normal Charges/Coding Visit Charges Inpatient E&M: 86482 Subs Hosp L2
[2021-04-11] MEDS: guaiFENesin 600 MG Tablet PO ×2 (09:10→22:38)
[2021-04-11] MEDS: Enoxaparin 40 MG/0.4 ML Syringe SC (09:10)
[2021-04-11] MEDS: Aspirin 81 MG TAB.CHEW PO (09:10)
[2021-04-11] MEDS: Furosemide 40 MG/4 ML Vial IV (09:11)
[2021-04-11] MEDS: Tamsulosin HCl 0.4 MG Capsule PO (09:11)
[2021-04-11] MEDS: 0.9% Saline Lock 10 ML Syringe IV (09:11)
[2021-04-11 09:13] LABS: Magnesium 2.4 mg/dL (1.6-2.6); Phosphorus 3.7 mg/dL (2.5-4.9)
--- NOTE | 2021-04-11 09:52 | PN.HOSP_ITS ---
Subjective Subjective Patient seen and examined. He feels much better today. His breathing is getting better. He was noted to be having some PVCs on the monitor today. Review of systems is otherwise negative. Objective Data Objective Data Vital Signs: Vital Signs Temp Pulse Resp BP Pulse Ox 98.4 F 76 24 H 141/58 H 96 04/11/21 08:00 04/11/21 08:00 04/11/21 08:00 04/11/21 08:00 04/11/21 08:00 Oxygen Flow Rate (L/min) 2 Oxygen Delivery Method Nasal Cannula Weight: 192 lb 10.944 oz Body Mass Index (BMI) 28.5 Intake & Output: Intake and Output for Last 24 Hours 04/09/21 04/10/21 04/11/21 23:59 23:59 23:59 Intake Total 466.25 / 466.25 160 / 160 Output Total 1875 / 1925 800 / 800 220 / 220 Balance -1408.75 / -1458.75 -640 / -640 -220 / -220 Lab / Micro Data Result Diagrams: 04/11/21 04:20 04/11/21 04:20 Labs: Laboratory Results - last 24 hr 04/11/21 04/11/21 04/11/21 04:20 04:20 04:20 WBC 6.9 RBC 4.51 L Hgb 14.1 Hct 43.5 MCV 96.5 H MCH 31.3 MCHC 32.4 RDW Std Deviation 49.8 H RDW Coeff of Lorrie 14.1 Plt Count 147 L MPV 8.6 Immature Gran % (Auto) 0.300 Neut % (Auto) 71.9 H Lymph % (Auto) 10.9 L [place] % (Auto) 8.6 Eos % (Auto) 7.7 H Baso % (Auto) 0.6 Absolute Neuts (auto) 4.9 Absolute Lymphs (auto) 0.75 L Nucleated RBC % 0 Sodium 143 Potassium 4.3 Chloride 101 Carbon Dioxide 39.0 H Anion Gap 3 L BUN 32 H Creatinine 1.28 Estim Creat Clear Calc 56.24 Est GFR (MDRD) Af Amer 72 Est GFR (MDRD) Non-Af 59 L BUN/Creatinine Ratio 25.0 H Glucose 102 Calcium 8.4 L Phosphorus 3.7 Magnesium 2.4 Troponin I 0.076 H 05/30/21 09:00 WBC RBC Hgb Hct MCV MCH MCHC RDW Std Deviation RDW Coeff of Lorrie Plt Count MPV Immature Gran % (Auto) Neut % (Auto) Lymph % (Auto) [place] % (Auto) Eos % (Auto) Baso % (Auto) Absolute Neuts (auto) Absolute Lymphs (auto) Nucleated RBC % Sodium Potassium Chloride Carbon Dioxide Anion Gap BUN Creatinine Estim Creat Clear Calc Est GFR (MDRD) Af Amer Est GFR (MDRD) Non-Af BUN/Creatinine Ratio Glucose Calcium Phosphorus Magnesium Troponin I 0.075 H Physical Exam Const alert, oriented x3 and no apparent distress General Appearance: cooperative Exam Limitations: no limitations HEENT normocephalic, head/scalp atraumatic, moist oral mucous membranes and oropharynx normal Eyes PERRL, EOMs intact bilaterally and conjunctivae normal Neck no lymphadenopathy and supple Resp Resp Narrative: diminished breath sounds bibasally, few crackles. On 4L of oxygen by nasal canula. Still mildly tachypneic Auscultation: Negative for crackles, rales, rhonchi or wheezes Cardio regular rate, regular rhythm, S1 normal heart sound, S2 normal heart sound and no murmurs GI normal to inspection, nondistended, normoactive bowel sounds, soft to palpation, non-tender and non-distended; Negative for hepatosplenomegaly Extremity normal to inspection and full ROM General Extremity: edema bilateral lower extremity Details: mild; Negative for clubbing or cyanosis Peripheral Pulses: Yes pulses 2+ throughout Skin no rashes or lesions noted Neuro oriented x3, CN's II-XII intact bilaterally, moves all extremities, no focal motor deficits and no sensory deficits noted Sensorium / Orientation: awake and alert Psych affect normal Appearance: appropriate Assessment & Plan Assessment/Plan (1) Acute on chronic respiratory failure with hypoxia and hypercapnia: (2) Hypertensive urgency: (3) Acidosis, lactic: (4) Elevated troponin I level: PLAN: #Acute on chronic respiratory failure due to flash pulmonary edema * Now on 4 L of oxygen. Shortness of breath has improved significantly. * Continue diuresis with IV Lasix. * 2D echo pending. * #Acute flash pulmonary edema and hypertensive emergency * resolving. 2D echo: EF of 40-45%, with mildly dilated LV adn mildly enlarged left atrium. Aortic sclerosis, no stenosis, with mild LV hypokinesia; no change from previous echo in 10/15/2019. * on IV lasix 40mg daily now * #Elevated troponins * troponin was elevated. This was thought to be due to the hypertensive emergency * 2d Echo as above * SL nitroglycerin prn * PO aspirin 81mg daily * troponin was 0.098 on admission, and on recheck today, is down to 0.076. Being trended. * #BPH: on flomax CAD s/p CABG: on aspirin and carvedilol as well as statin and lisinopril #Hypertension: on carvedilol and HCTZ as well as lisinopril DVT prophylaxis; lovenox Visit Charges Inpatient E&M: 59745 Subs Hosp L2
--- NOTE | 2021-04-11 17:18 | NURSING ---
report called to MILY Bernardo notified Shauna, daughter of transfer to PCU and visiting hours and restrictions
--- NOTE | 2021-04-11 20:18 | CPS ---
pt from icu- bipap not in room -order completed-nurse aware
[2021-04-11] MEDS: Atorvastatin Calcium 10 MG Tablet PO (22:38)
[2021-04-12] VITALS (10 sets, daily range): BP systolic 117–147; BP diastolic 63–93; PULSE 64–83; RESP 20–22; TEMP 36.6–36.9; O2SAT 91–97
[2021-04-12] MEDS: MELATONIN 3 MG TABLET PO (00:47)
--- NOTE | 2021-04-12 05:32 | PCM.PN.INT ---
Assessment & Plan Assessment/Plan (1) Hypertensive urgency: PLAN: RECOMMENDATIONS: 1. Continue diuretics as tolerated by hemodynamics and renal function. Consider transitioning to p.o. regimen. 2. Wean supplemental oxygen as tolerated to maintain saturations at or above 90%. 3. Encourage incentive spirometer use and mobilize patient as tolerated. 4. Recommend outpatient pulmonary follow-up after discharge. IMPRESSIONS: 1. Acute combined respiratory failure secondary to probable hypertensive emergency with flash pulmonary edema The patient presented with bilateral infiltrates on chest x-ray and presented with significant hypertension and sudden onset. Unclear baseline respiratory function. The patient was initially maintained on noninvasive positive pressure ventilatory support, nitro infusion and Lasix. He has improved from a respiratory perspective. Plan to continue diuretic regimen as tolerated by hemodynamics and renal function. Okay from my perspective to transition from IV to p.o. Lasix regimen. 2. Acute combined congestive heart failure/elevated troponin The patient has been seen by Dr. Deal in the past. Patient's last ejection fraction was 45%. Patient does have some lower extremity edema and an elevated BNP suggestive of CHF. Clinical suspicion for elevated troponin secondary to global supply versus demand mismatch. 3. Acute kidney injury versus chronic kidney disease Baseline renal function is unclear at this time. Patient does have comorbid conditions that could lead to chronic kidney disease. 4. Hypertension/hyperlipidemia/poor primary care access Complicates care, management, recovery and prognosis. Okay to continue statin therapy. This note was generated with [employer] dictation software. It may contain incorrect words, spelling, and punctuation that were not noted in checking the note before signing. Subjective Subjective The patient was seen and examined at the bedside this morning. Events from the last 24 hours have been reviewed. The patient is currently afebrile, hemodynamically stable and maintaining appropriate oxygen saturations on 2 L/min via nasal cannula. The patient is currently documented to be overall net -3.1 L for the hospital admission. The patient remains on once daily IV Lasix. Objective Data Objective Data The patient's most recent lab work, culture data and imaging studies have all been personally reviewed. Surface echocardiogram from April 09 revealed a mildly dilated LV with an ejection fraction of 40 to 45%. Vital Signs: Vital Signs Temp Pulse Resp BP Pulse Ox 98 F 83 22 H 134/66 H 97 04/12/21 02:27 04/12/21 03:00 04/12/21 02:27 04/12/21 02:27 04/12/21 02:27 Oxygen Flow Rate (L/min) 2 Oxygen Delivery Method Nasal Cannula Weight: 192 lb 10.944 oz Body Mass Index (BMI) 28.5 Intake & Output: Intake and Output for Last 24 Hours 04/10/21 04/11/21 04/12/21 23:59 23:59 23:59 Intake Total 160 / 160 310 / 310 100 / 100 Output Total 800 / 800 1265 / 1265 200 / 200 Balance -640 / -640 -955 / -955 -100 / -100 Lab / Micro Data Attestation: I reviewed the patient's lab results. Result Diagrams: 04/11/21 04:20 04/11/21 04:20 Labs: Laboratory Results - last 24 hr 04/11/21 04/11/21 04/11/21 04:20 09:00 12:00 Phosphorus 3.7 Magnesium 2.4 Troponin I 0.076 H 0.075 H 0.085 H Physical Exam Const alert and oriented x3 General Appearance: cooperative HEENT normocephalic and head/scalp atraumatic Eyes PERRL, EOMs intact bilaterally and conjunctivae normal Neck supple General: trachea midline Resp Effort and Inspection: able to speak in complete sentences and tachypneic Auscultation: diminished lung sounds; Negative for rales, rhonchi or wheezes Cardio regular rate and regular rhythm GI normal to inspection, nondistended, normoactive bowel sounds Extremity General Extremity: edema bilateral Skin no rashes or lesions noted Neuro oriented x3, CN's II-XII intact bilaterally and moves all extremities Psych cooperative and affect normal Charges/Coding Visit Charges Inpatient E&M: 69025 Subs Hosp L2
[2021-04-12 07:06] LABS: Anion Gap 2 (5-15); BUN 27 mg/dL (7-18); BUN/Creat Ratio 24.8 RATIO (10-20); Calcium,Total 8.9 mg/dL (8.5-10.1); Chloride 101 mmol/L (98-107); Creatinine, Serum 1.09 mg/dL (0.70-1.30); EST Glomerular Filtration Rate 71 mL/min (>60); Est Glom Filt Rate - Afr Amer 86 mL/min (>60); Estimated Creatinine Clearance 66.04 ml/min; Glucose 103 mg/dL (74-106); Potassium 4.2 mmol/L (3.5-5.1); Sodium Level 140 mmol/L (136-145)
[2021-04-12] MEDS: 0.9% Saline Lock 10 ML Syringe IV (08:33)
[2021-04-12] MEDS: Aspirin 81 MG TAB.CHEW PO (08:33)
[2021-04-12] MEDS: Tamsulosin HCl 0.4 MG Capsule PO (08:33)
[2021-04-12] MEDS: Furosemide 40 MG/4 ML Vial IV (08:33)
[2021-04-12] MEDS: guaiFENesin 600 MG Tablet PO ×2 (08:33→21:01)
[2021-04-12] MEDS: Enoxaparin 40 MG/0.4 ML Syringe SC (08:33)
--- NOTE | 2021-04-12 13:55 | PN.HOSP_ITS ---
Subjective Subjective Patient seen and examined. He feels better today and has no complaints. His breathing is getting better. He denies any chest pain, palpitations, dizziness, nausea or vomiting or diarrhea. Review of systems is otherwise negative. Objective Data Objective Data Vital Signs: Vital Signs Temp Pulse Resp BP Pulse Ox 98.5 F 64 20 H 137/93 H 94 04/12/21 08:30 04/12/21 08:30 04/12/21 08:30 04/12/21 08:30 04/12/21 08:30 Oxygen Flow Rate (L/min) 2 Oxygen Delivery Method Nasal Cannula Weight: 192 lb 14.472 oz Body Mass Index (BMI) 28.5 Intake & Output: Intake and Output for Last 24 Hours 04/10/21 04/11/21 04/12/21 23:59 23:59 23:59 Intake Total 160 / 160 310 / 310 200 / 200 Output Total 800 / 800 1265 / 1265 700 / 700 Balance -640 / -640 -955 / -955 -500 / -500 Lab / Micro Data Result Diagrams: 04/11/21 04:20 04/12/21 06:41 Labs: Laboratory Results - last 24 hr 04/12/21 06:41 Sodium 140 Potassium 4.2 Chloride 101 Carbon Dioxide 37.0 H Anion Gap 2 L BUN 27 H Creatinine 1.09 Estim Creat Clear Calc 66.04 Est GFR (MDRD) Af Amer 86 Est GFR (MDRD) Non-Af 71 BUN/Creatinine Ratio 24.8 H Glucose 103 Calcium 8.9 Physical Exam Const alert General Appearance: cooperative Orientation / Consciousness: lethargic Exam Limitations: no limitations HEENT normocephalic, head/scalp atraumatic, moist oral mucous membranes and oropharynx normal Eyes PERRL, EOMs intact bilaterally and conjunctivae normal Neck no lymphadenopathy and supple Resp normal respiratory effort Resp Narrative: diminished breath sounds bibasally, few crackles. On 2L of oxygen by nasal canula. Auscultation: Negative for crackles, rales, rhonchi or wheezes Cardio regular rate, regular rhythm, S1 normal heart sound, S2 normal heart sound and no murmurs GI normal to inspection, nondistended, normoactive bowel sounds, soft to palpation, non-tender and non-distended; Negative for hepatosplenomegaly Extremity normal to inspection and full ROM General Extremity: edema bilateral lower extremity Details: mild; Negative for clubbing or cyanosis Peripheral Pulses: Yes pulses 2+ throughout Skin no rashes or lesions noted Neuro oriented x3, CN's II-XII intact bilaterally, moves all extremities, no focal motor deficits and no sensory deficits noted Sensorium / Orientation: awake and alert Psych affect normal Appearance: appropriate Assessment & Plan Assessment/Plan (1) Acute on chronic respiratory failure with hypoxia and hypercapnia: (2) Hypertensive urgency: (3) Acidosis, lactic: (4) Elevated troponin I level: PLAN: #Acute on chronic respiratory failure due to flash pulmonary edema * Now on 2L of oxygen. Shortness of breath has improved significantly. * will switch to oral lasix today * 2D echo as below. * titrate oxygen to maintain sats>90% * #Acute flash pulmonary edema and hypertensive emergency * resolving. 2D echo: EF of 40-45%, with mildly dilated LV adn mildly enlarged left atrium. Aortic sclerosis, no stenosis, with mild LV hypokinesia; no change from previous echo in 10/15/2019. * on IV lasix 40mg daily now; will switch to oral lasix today. * #Elevated troponins * troponin was elevated. This was thought to be due to the hypertensive emergency * 2d Echo as above * SL nitroglycerin prn * PO aspirin 81mg daily * troponin was 0.098 on admission, and trended down * #BPH: on flomax CAD s/p CABG: on aspirin and carvedilol as well as statin and lisinopril #Hypertension: on carvedilol and HCTZ as well as lisinopril DVT prophylaxis; lovenox Disposition: for likely dc home tomorrow Visit Charges Inpatient E&M: 03909 Subs Hosp L2
[2021-04-12 14:52] LABS: Absolute Lymphocyte Count 0.75 X10^3/uL (0.83-4.51); Absolute Neutrophil Count 4.3 X10^3/uL (2.0-7.7); Basophil# 0.03 X10^3/uL; Basophil% 0.5 % (0-1); Eosinophil# 0.52 X10^3/uL; Eosinophils% 8.3 % (0-5); Hematocrit 40.5 % (40-54); Hemoglobin 13.8 g/dL (13.0-16.5); Lymphocyte # 0.75 X10^3/ul (0.83-4.51); Lymphocyte % 11.9 % (19-41); Mean Corp Hgb Conc 34.1 g/dL (32-36); Mean Corpuscular Hgb 31.8 pg (27.0-32.0); Mean Corpuscular Volume 93.3 fL (80-94); Mean Platelet Vol. 8.1 fl (6.2-12.0); Monocyte# 0.69 X10^3/uL; NRBC Flagged by Analyzer 0 % (0-5); Neutrophil # 4.28 X10^3/uL (2.7-7.7); Platelet Count 176 K/mm3 (150-450); RBC Distribution Width CV 13.8 % (11.6-14.6); RBC Distribution Width SD 47.3 fl (35.1-43.9); Red Blood Count 4.34 M/mm3 (4.6-6.2); White Blood Count 6.3 K/mm3 (4.4-11.0)
[2021-04-12] MEDS: Atorvastatin Calcium 10 MG Tablet PO (21:01)
[2021-04-13] VITALS (9 sets, daily range): BP systolic 138–161; BP diastolic 68–81; PULSE 39–77; RESP 18–20; TEMP 36.4–36.8; O2SAT 87–97
[2021-04-13 06:45] LABS: Absolute Lymphocyte Count 0.81 X10^3/uL (0.83-4.51); Absolute Neutrophil Count 3.8 X10^3/uL (2.0-7.7); Basophil# 0.04 X10^3/uL; Basophil% 0.7 % (0-1); Eosinophil# 0.54 X10^3/uL; Eosinophils% 9.2 % (0-5); Hematocrit 43.3 % (40-54); Hemoglobin 14.8 g/dL (13.0-16.5); Lymphocyte # 0.81 X10^3/ul (0.83-4.51); Lymphocyte % 13.8 % (19-41); Mean Corp Hgb Conc 34.2 g/dL (32-36); Mean Corpuscular Hgb 31.7 pg (27.0-32.0); Mean Corpuscular Volume 92.7 fL (80-94); Mean Platelet Vol. 8.4 fl (6.2-12.0); Monocyte# 0.68 X10^3/uL; Monocyte% 11.6 % (0-10); NRBC Flagged by Analyzer 0 % (0-5); Neutrophil # 3.76 X10^3/uL (2.7-7.7); Neutrophil % 64.4 % (47-70); Platelet Count 149 K/mm3 (150-450); RBC Distribution Width CV 13.8 % (11.6-14.6); RBC Distribution Width SD 46.5 fl (35.1-43.9); Red Blood Count 4.67 M/mm3 (4.6-6.2); White Blood Count 5.9 K/mm3 (4.4-11.0)
[2021-04-13 07:06] LABS: Anion Gap 4 (5-15); BUN 22 mg/dL (7-18); BUN/Creat Ratio 20.2 RATIO (10-20); Chloride 100 mmol/L (98-107); Creatinine, Serum 1.09 mg/dL (0.70-1.30); EST Glomerular Filtration Rate 71 mL/min (>60); Est Glom Filt Rate - Afr Amer 86 mL/min (>60); Estimated Creatinine Clearance 66.04 ml/min; Glucose 107 mg/dL (74-106); Sodium Level 141 mmol/L (136-145)
[2021-04-13] MEDS: Tamsulosin HCl 0.4 MG Capsule PO (09:11)
[2021-04-13] MEDS: Aspirin 81 MG TAB.CHEW PO (09:12)
[2021-04-13] MEDS: Furosemide 40 MG Tablet PO (09:12)
[2021-04-13] MEDS: guaiFENesin 600 MG Tablet PO (09:12)
[2021-04-13] MEDS: Enoxaparin 40 MG/0.4 ML Syringe SC (09:12)
--- NOTE | 2021-04-13 11:46 | PCM.DC.SUM ---
Providers Date of Admission: 04/09/21 Primary Care Physician: Dr. Miller Tapia MD Consultations 04/09/21 13:25 Consult: Gut Puller / Pulmonary Medicine Routine Consulting Provider: Pulmonary Medicine lou Pitt Reason for Consult: bipap EMERGENT Consult: No MD Notified: Yes Date Notified:: 04/09/21 Time Notified: 13:25 Method of Notification: Verbal Reason For Visit: FLASH PULM EDEMA WITH HTN URGENCY Diagnosis Discharge Diagnosis (1) Acute on chronic respiratory failure with hypoxia and hypercapnia: Status: Chronic Code(s): J96.21 - Acute and chronic respiratory failure with hypoxia; J96.22 - Acute and chronic respiratory failure with hypercapnia (2) Hypertensive urgency: Status: Acute Code(s): I16.0 - Hypertensive urgency (3) Acidosis, lactic: Status: Acute Code(s): E87.2 - Acidosis (4) Elevated troponin I level: Status: Acute Code(s): R77.8 - Other specified abnormalities of plasma proteins Medications at Discharge Home Medications ascorbic acid (vitamin C) 1,000 mg tablet 1 g PO BID tab 09/11/19 aspirin 81 mg chewable tablet 81 mg PO DAILY 09/11/19 multivitamin-ferrous fumarate-folic acid 18 mg-400 mcg tablet 1 tab PO QAM 09/11/19 simvastatin 20 mg tablet 20 mg PO QHS 09/11/19 carvedilol 6.25 mg tablet 6.25 mg PO BID #60 tab 09/16/19 glucosamine-chondroitin 250 mg-200 mg tablet 2 tab PO DAILY tab 09/16/19 tamsulosin 0.4 mg capsule 0.4 mg PO DAILY 09/16/19 lisinopril 20 mg tablet 20 mg PO DAILY #30 tab 12/18/19 cetirizine [Zyrtec] 10 mg PO DAILY 04/09/21 guaifenesin [Mucinex] 600 mg PO BID 04/09/21 furosemide 40 mg PO DAILY #30 tab 04/13/21 potassium chloride 10 meq PO DAILY #30 tab 04/13/21 Hospital Course Operations None Procedures None and 2-D Echocardiogram Summary of Care Provided Minutes Spent on Discharge: 40 Hospital Course: Patient is a 70-year-old male with a past medical history as outlined was admitted through the ED on 04/09/2021 with a complaint of worsening shortness of breath. Shortness of breath worsened with activity and lying flat and happened suddenly on the morning of admission. He denied any chest pain or dizziness and did admit to some lightheadedness. He was found to be markedly hypertensive in the ER with blood pressure up in the 200s systolic. He was started on nitroglycerin drip given a dose of Lasix. He said he has stopped taking his blood pressure medication since he moved to [facility] from [place] in September or October of last year as he had not found a PCP yet. He was admitted and managed for acute on chronic hypoxic and hypercapnic respiratory failure due to flash pulmonary edema as a result of hypertensive urgency. Troponins were also elevated which was thought to be due to type II ischemia from hypertensive urgency. Patient was known to have pulmonary artery systolic pressure of 60 mmHg from a 2D echo done in 2018. Patient was started on diuresis with IV Lasix. Lactic acid was elevated but this was anticipated that it would resolve with diuresis which I did. His blood pressure medications were subsequently resumed and he was weaned off of nitroglycerin drip. Of note he was initially admitted to the ICU. Patient stabilized and diuresed significantly and was transferred out of the ICU. Shortness of breath subsequently improved markedly. 2D echo done during this admission showed EF of 40 to 45% with mildly dilated left ventricle and mildly enlarged left atrium with aortic sclerosis but no stenosis and mild left ventricular hypokinesia with no change noted from previous echo in October 2019. Pulmonary artery stump pressure was 50 mmHg. Patient remained stable and was discharged home on 04/13/2021. He had a walking pulse ox which showed that his sats dropped to 87% on room air with ambulation and he required 1 to 2 L to go up to 93% with ambulation. Patient therefore qualified for 2 L of oxygen at home. He was discharged home on p.o. 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 Patient was seen and examined prior to discharge and felt much better and wanted to be discharged home. Review systems otherwise negative. Labs and vitals reviewed. Medication reviewed and reconciled. Physical Exam Const alert and no apparent distress General Appearance: cooperative Orientation / Consciousness: lethargic Exam Limitations: no limitations HEENT normocephalic, head/scalp atraumatic, moist oral mucous membranes and oropharynx normal Eyes PERRL, EOMs intact bilaterally and conjunctivae normal Neck no lymphadenopathy and supple Resp normal respiratory effort Resp Narrative: diminished breath sounds bibasally, few crackles. On 2L of oxygen by nasal canula. Auscultation: Negative for crackles, rales, rhonchi or wheezes Cardio regular rate, regular rhythm, S1 normal heart sound, S2 normal heart sound and no murmurs GI normal to inspection, nondistended, normoactive bowel sounds, soft to palpation, non-tender and non-distended; Negative for hepatosplenomegaly Extremity normal to inspection and full ROM General Extremity: edema bilateral lower extremity Details: mild; Negative for clubbing or cyanosis Skin no rashes or lesions noted Neuro oriented x3, CN's II-XII intact bilaterally, moves all extremities, no focal motor deficits and no sensory deficits noted Sensorium / Orientation: awake and alert Psych affect normal Appearance: appropriate ABG / Lab / Microbiology Data Result Diagrams: 04/13/21 06:30 04/13/21 06:30 Laboratory: Laboratory Results - last 24 hr 04/12/21 04/13/21 04/13/21 06:41 06:30 06:30 WBC 6.3 5.9 RBC 4.34 L 4.67 Hgb 13.8 14.8 Hct 40.5 43.3 MCV 93.3 92.7 MCH 31.8 31.7 MCHC 34.1 D 34.2 RDW Std Deviation 47.3 H 46.5 H RDW Coeff of Lorrie 13.8 13.8 Plt Count 176 149 L MPV 8.1 8.4 Immature Gran % (Auto) 0.300 0.300 Neut % (Auto) 68.0 64.4 Lymph % (Auto) 11.9 L 13.8 L Hayes % (Auto) 11.0 H 11.6 H Eos % (Auto) 8.3 H 9.2 H Baso % (Auto) 0.5 0.7 Absolute Neuts (auto) 4.3 3.8 Absolute Lymphs (auto) 0.75 L 0.81 L Nucleated RBC % 0 0 Sodium 141 Potassium 4.0 Chloride 100 Carbon Dioxide 37.0 H Anion Gap 4 L BUN 22 H Creatinine 1.09 Estim Creat Clear Calc 66.04 Est GFR (MDRD) Af Amer 86 Est GFR (MDRD) Non-Af 71 BUN/Creatinine Ratio 20.2 H Glucose 107 H Calcium 9.0 D/C Instructions Discharge Diet: 2000 mg Sodium Diet Discharge Activity: Return to Normal Activity Call your doctor if you observe: Fever of 101 or Higher, Shortness of breath, Dizziness, Swelling in the ankles, Chest pain and Increased palpitations (irregular heartbeat) Meaningful Use Info Meaningful Use Diagnoses (Choose all that apply): None applicable Discharge Plan Admission Admit Date/Time: 04/09/21 11:30 Attending Provider: Fide Deleon Primary Care Provider: Miller Tapia Consulting Providers: Jose Luis Olivarez ; Duglas Buchanan ; Josefina Ritter FILAMENT TESTER Instructions Patient Instructions: Controlling High Blood Pressure, Eating a Low-Salt Diet, ED Dyspnea Discharge Orders/Prescriptions Prescriptions: New furosemide 40 mg Tablet 40 mg PO DAILY Qty: 30 RF: 2 potassium chloride 10 mEq tablet extended release 10 meq PO DAILY Qty: 30 RF: 1 Continued tamsulosin 0.4 mg capsule 0.4 mg PO DAILY RF: 0 carvedilol 6.25 mg tablet 6.25 mg PO BID Qty: 60 RF: 11 simvastatin 20 mg tablet 20 mg PO QHS RF: 0 aspirin 81 mg tablet,chewable 81 mg PO DAILY RF: 0 Centrum Complete 18-400 mg-mcg tablet 1 tab PO QAM RF: 0 ascorbic acid (vitamin C) 1,000 mg tablet 1 g PO BID RF: 0 glucosamine-chondroitin 250 mg-200 mg tablet 250-200 mg tablet 2 tab PO DAILY RF: 0 lisinopril 20 mg tablet 20 mg PO DAILY Qty: 30 RF: 11 cetirizine [Zyrtec] 10 mg Tablet 10 mg PO DAILY RF: 0 guaifenesin [Mucinex] 600 mg Tablet Extended Release 12hr 600 mg PO BID RF: 0 Discontinued hydrochlorothiazide 50 mg tablet 50 mg PO DAILY RF: 0 Referrals / Follow Up: Tamir Colin MD [STAFF PHYSICIAN] - Within 1 Month Miller Tapia MD [Primary Care Provider] - In 1 Week Disposition Disposition (needs filled in before D/C Order can be placed): Home Health Service Visit Charges Inpatient E&M: 62761 Disch Hosp
--- NOTE | 2021-04-13 12:06 | CASEMGMT ---
Addendum entered by Maura Calloway 04/13/21 15:03: Spoke with Marivel at [facility] and she states pt's e-tank should be on way. Riri MINOR CM Original Note: Per Suzi MINOR, pt qualifies for home oxygen. Pt already has script on chart for [facility], once signed will be faxed to [facility] and [facility] notified of referral. Message left with Mary Lou at [facility] in regards to pt discharge today. Riri MINOR CM
--- NOTE | 2021-04-13 12:21 | PCM.PN.INT ---
Assessment & Plan Assessment/Plan (1) Hypertensive urgency: PLAN: RECOMMENDATIONS: 1. Continue diuretics as tolerated by hemodynamics and renal function. 2. Wean supplemental oxygen as tolerated to maintain saturations at or above 90%. 3. Encourage incentive spirometer use and mobilize patient as tolerated. 4. Recommend outpatient pulmonary follow-up after discharge. 5. Possible discharge later today. IMPRESSIONS: 1. Acute combined respiratory failure secondary to probable hypertensive emergency with flash pulmonary edema The patient presented with bilateral infiltrates on chest x-ray and presented with significant hypertension and sudden onset. Unclear baseline respiratory function. The patient was initially maintained on noninvasive positive pressure ventilatory support, nitro infusion and Lasix. He has improved from a respiratory perspective. Plan to continue diuretic regimen as tolerated by hemodynamics and renal function. 2. Acute combined congestive heart failure/elevated troponin The patient has been seen by Dr. Deal in the past. Patient's last ejection fraction was 45%. Patient does have some lower extremity edema and an elevated BNP suggestive of CHF. Clinical suspicion for elevated troponin secondary to global supply versus demand mismatch. 3. Acute kidney injury versus chronic kidney disease Baseline renal function is unclear at this time. Patient does have comorbid conditions that could lead to chronic kidney disease. 4. Hypertension/hyperlipidemia/poor primary care access Complicates care, management, recovery and prognosis. Okay to continue statin therapy. This note was generated with [employer] dictation software. It may contain incorrect words, spelling, and punctuation that were not noted in checking the note before signing. Subjective Subjective The patient was seen and examined at the bedside this morning. Events from the last 24 hours have been reviewed. The patient is currently afebrile, hemodynamically stable and maintaining appropriate oxygen saturations on 1 L/min via nasal cannula. The patient is currently documented to be overall net -3.2 L for the hospital admission. Breathing quality has improved. Objective Data Objective Data The patient's most recent lab work, culture data and imaging studies have all been personally reviewed. Surface echocardiogram from April 09 revealed a mildly dilated LV with an ejection fraction of 40 to 45%. Vital Signs: Vital Signs Temp Pulse Resp BP Pulse Ox 98.3 F 59 L 20 H 160/79 H 93 04/13/21 09:00 04/13/21 09:00 04/13/21 09:00 04/13/21 09:00 04/13/21 09:00 Oxygen Flow Rate (L/min) [ 2 AMBULATING with Oxygen #1] Oxygen Flow Rate (L/min) [At 1 REST with Oxygen] Oxygen Flow Rate (L/min) 1 Oxygen Delivery Method Nasal Cannula Weight: 186 lb 4.65 oz Body Mass Index (BMI) 28.5 Intake & Output: Intake and Output for Last 24 Hours 04/11/21 04/12/21 04/13/21 23:59 23:59 23:59 Intake Total 310 / 310 520 / 570 410 / 410 Output Total 1265 / 1265 925 / 1025 200 / 200 Balance -955 / -955 -405 / -455 210 / 210 Lab / Micro Data Attestation: I reviewed the patient's lab results. Result Diagrams: 04/13/21 06:30 04/13/21 06:30 Labs: Laboratory Results - last 24 hr 04/12/21 04/13/21 04/13/21 06:41 06:30 06:30 WBC 6.3 5.9 RBC 4.34 L 4.67 Hgb 13.8 14.8 Hct 40.5 43.3 MCV 93.3 92.7 MCH 31.8 31.7 MCHC 34.1 D 34.2 RDW Std Deviation 47.3 H 46.5 H RDW Coeff of Lorrie 13.8 13.8 Plt Count 176 149 L MPV 8.1 8.4 Immature Gran % (Auto) 0.300 0.300 Neut % (Auto) 68.0 64.4 Lymph % (Auto) 11.9 L 13.8 L Fajardo % (Auto) 11.0 H 11.6 H Eos % (Auto) 8.3 H 9.2 H Baso % (Auto) 0.5 0.7 Absolute Neuts (auto) 4.3 3.8 Absolute Lymphs (auto) 0.75 L 0.81 L Nucleated RBC % 0 0 Sodium 141 Potassium 4.0 Chloride 100 Carbon Dioxide 37.0 H Anion Gap 4 L BUN 22 H Creatinine 1.09 Estim Creat Clear Calc 66.04 Est GFR (MDRD) Af Amer 86 Est GFR (MDRD) Non-Af 71 BUN/Creatinine Ratio 20.2 H Glucose 107 H Calcium 9.0 Physical Exam Const alert and oriented x3 General Appearance: cooperative HEENT normocephalic and head/scalp atraumatic Eyes PERRL, EOMs intact bilaterally and conjunctivae normal Neck supple General: trachea midline Resp normal respiratory effort Effort and Inspection: able to speak in complete sentences Auscultation: diminished lung sounds; Negative for rales, rhonchi or wheezes Cardio regular rate and regular rhythm GI normal to inspection, nondistended, normoactive bowel sounds Extremity General Extremity: edema bilateral Skin no rashes or lesions noted Neuro oriented x3, CN's II-XII intact bilaterally and moves all extremities Psych cooperative and affect normal Charges/Coding Visit Charges Inpatient E&M: 14652 Subs Hosp L2
--- NOTE | 2021-04-13 12:58 | PHA.DC.MC ---
Pharmacy Service has performed discharge medication reconciliation and counseling for this patient. 1. FUROSEMIDE 40MG PO DAILY 2. POTASSIUM CHLORIDE 10MEQ PO DAILY The patient's discharge medication list was reviewed for discrepancies and discrepancies were resolved. Home Medications ascorbic acid (vitamin C) 1,000 mg tablet 1 g PO BID tab 09/11/19 aspirin 81 mg chewable tablet 81 mg PO DAILY 09/11/19 multivitamin-ferrous fumarate-folic acid 18 mg-400 mcg tablet 1 tab PO QAM 09/11/19 simvastatin 20 mg tablet 20 mg PO QHS 09/11/19 carvedilol 6.25 mg tablet 6.25 mg PO BID #60 tab 09/16/19 glucosamine-chondroitin 250 mg-200 mg tablet 2 tab PO DAILY tab 09/16/19 tamsulosin 0.4 mg capsule 0.4 mg PO DAILY 09/16/19 lisinopril 20 mg tablet 20 mg PO DAILY #30 tab 12/18/19 cetirizine [Zyrtec] 10 mg PO DAILY 04/09/21 guaifenesin [Mucinex] 600 mg PO BID 04/09/21 furosemide 40 mg PO DAILY #30 tab 04/13/21 potassium chloride 10 meq PO DAILY #30 tab 04/13/21 The patient was counseled on the following discharge medications and changes in medications for homegoing were reviewed. The Reason for Use, instructions for use, and potential side effects were reviewed for all new medications. The patient's questions regarding all of their medications were answered. The patient was able to verbally demonstrate an understanding of their discharge medications.
--- NOTE | 2021-04-13 15:45 | CASEMGMT ---
Pt screened with [facility] Palliative Screening Tool due to strata 3, pt did not meet criteria.
--- NOTE | 2021-04-14 11:57 | CASEMGMT ---
MILY XIONG Discharge Follow-Up Phone Call. Strata: 3 Discharge Date: 04/13/21 Adm Dx: Flash pulmonary edema with hypertensive urgency Call to pt to inquire about how he has been doing since being discharged from the hospital. The pt's contact # is also pt's daughter's (Shauna) #. Shauna answered and spoke w/this MILY XIONG. Shauna states pt was pretty tired last night and out of breath. She states his oxygen tank had ran out. MILY XIONG inquired if she or pt had contacted [facility] when pt arrived @ home for delivery of O2 concentrator and more portable O2 tanks. . Shauna stated, My father told me they had contacted them when they were at the hospital and I couldn't find the #. MILY XIONG informed Shauna of the process of home O2 delivery Medardo SALINASN MILY XIONG
--- NOTE | 2021-04-14 12:07 | CASEMGMT ---
Addendum entered by Ami Hernandez 04/14/21 12:21: Call placed to [facility] and spoke w/Rasheeda. She states they were not contacted by pt or family yesterday after pt was d/c'd from the hospital. She states they did try to contact pt yesterday on a couple of occasions and were unable to reach anyone yesterday. She states someone did contact [facility] this AM and confirms [facility] is currently en route to pt's home to deliver Home O2. Original Note: MILY XIONG Discharge Follow-Up Phone Call. Strata: 3 Discharge Date: 04/13/21 Adm Dx: Flash pulmonary edema with hypertensive urgency Call to pt to inquire about how he has been doing since being discharged from the hospital. The pt's contact # is also pt's daughter's (Shauna) #. Shauna answered and spoke w/coreen MINOR CM. Shauna states pt was pretty tired last night and out of breath. She states his oxygen tank had ran out and that [facility] nurse was their this morning and have contacted [facility] and they are on their way to pt's home now to deliver another O2 tank. MILY XIONG inquired if she or pt had contacted [facility] when pt arrived @ home for delivery of O2 concentrator and more portable O2 tanks. Shauna stated, My father told me they had contacted them when they were at the hospital and I couldn't find the #. MILY XIONG informed Shauna that the hospital does not contact [facility], that once pt arrives home that the pt/family are to call to have additional O2 delivered and that the number for [employer] should be found on the portable O2 tank and this info is also on the discharge paperwork. Shauna also inquired about obtaining additional O2 once the new tank that [facility] delivers today runs out. MILY XIONG informed Shauna that pt would be provided w/a concentrator as well as the portable tanks, and that the concentrator does not run out and also made aware [facility] would be who she contacts for new portable tanks as well. She voices understanding. Shauna states she was able to mushroom picker the 2 new prescriptions @ [facility]. She inquired about the Glucosamine being listed on pt's d/c instructions and stated pt does not have any of this medication. MILY XIONG informed Shauna that this medication was listed on pt's home medication that he was taking this prior to admission and that it was resumed, not a new Rx. MILY XIONG advised Shauna, if she was not aware of pt taking prior to hospitalization to discuss this medication w/pt's PCP as to whether he would like pt to take this or not. She voices understanding. She is aware that Hctz has been stopped. Shauna states she has made a f/u appt w/Dr Tapia for 04/22 @ [id number], but she has not contacted Dr Colin yet. She asked for Dr Colin's contact info and this was provided to her at this time. Shauna denies having any further questions about the discharge instructions and denies further concerns. Medardo AMEZCUA RN CM
== END 2021-04-13 16:46 | disposition home health service (06) | DRG 291 ==
LOC: ED 11:40 → ICU 11:53 → PCU 04-11 17:50
PROVIDERS: Admitting Provider Family Medicine; Emergency Provider Emergency Medicine; PCP Family Medicine; Visit Provider Student in an Organized Health Care Education/Training Program
DX: I13.0 Hypertensive heart and chronic kidney disease with heart failure and stage 1 through stage 4 chronic kidney disease, or unspecified chronic kidney disease (principal); J96.21 Acute and chronic respiratory failure with hypoxia; I50.41 Acute combined systolic (congestive) and diastolic (congestive) heart failure; J96.22 Acute and chronic respiratory failure with hypercapnia; I16.1 Hypertensive emergency; E87.2 Acidosis; I25.10 Atherosclerotic heart disease of native coronary artery without angina pectoris; N18.2 Chronic kidney disease, stage 2 (mild); H91.93 Unspecified hearing loss, bilateral; E78.5 Hyperlipidemia, unspecified; E80.4 Gilbert syndrome; N40.0 Benign prostatic hyperplasia without lower urinary tract symptoms; Z95.1 Presence of aortocoronary bypass graft; Z79.899 Other long term (current) drug therapy; Z79.82 Long term (current) use of aspirin; I25.2 Old myocardial infarction
CPT/HCPCS: 36415; 36600; 51702; 71045; 80048; 80053; 82803; 82962; 83605; 83735; 83880; 84100; 84484; 85025; 93005; 93306; 94002; 94003; 97110; 97116; 97162; 97166; 97530; 97535; 99285; Q9957; A4216; C8929; J1940

== ENCOUNTER → 2023-09-21 | Outpatient (CLI) | payer MEDICARE, SELFPAY ==
[2023-09-21 12:06] LABS: Absolute Lymphocyte Count 0.96 X10^3/uL (0.83-4.51); Absolute Neutrophil Count 3.6 X10^3/uL (2.0-7.7); Basophil# 0.03 X10^3/uL; Basophil% 0.5 % (0-1); Eosinophil# 0.43 X10^3/uL; Eosinophils% 7.6 % (0-5); Hematocrit 45.5 % (40-54); Hemoglobin 14.9 g/dL (13.0-16.5); Lymphocyte # 0.96 X10^3/ul (0.83-4.51); Lymphocyte % 17.1 % (19-41); Mean Corp Hgb Conc 32.7 g/dL (32-36); Mean Corpuscular Hgb 31.4 pg (27.0-32.0); Mean Platelet Vol. 7.9 fl (6.2-12.0); Monocyte% 10.7 % (0-10); NRBC Flagged by Analyzer 0 % (0-5); Neutrophil # 3.59 X10^3/uL (2.7-7.7); Neutrophil % 63.7 % (47-70); Platelet Count 136 K/mm3 (150-450); RBC Distribution Width CV 12.8 % (11.6-14.6); RBC Distribution Width SD 45.4 fl (35.1-43.9); Red Blood Count 4.74 M/mm3 (4.6-6.2); White Blood Count 5.6 K/mm3 (4.4-11.0)
[2023-09-21 12:36] LABS: BNP,B-Type NATRIURETIC PEPTIDE 56.1 pg/mL (0-100)
[2023-09-21 12:52] LABS: Anion Gap 3 (5-15); BUN 17 mg/dL (7-18); BUN/Creat Ratio 15.9 RATIO (10-20); Calcium,Total 9.6 mg/dL (8.5-10.1); Chloride 102 mmol/L (98-107); Creatinine, Serum 1.07 mg/dL (0.70-1.30); EST Glomerular Filtration Rate 72 mL/min (>60); Est Glom Filt Rate - Afr Amer 87 mL/min (>60); Glucose 109 mg/dL (74-106); Potassium 4.3 mmol/L (3.5-5.1); Sodium Level 143 mmol/L (136-145); Thyroid Stim Hormone (TSH) 0.98 uIU/mL (0.358-3.74)
== END | disposition home or self-care (01) ==
LOC: LAB 11:43
PROVIDERS: PCP Family Medicine; Referring Provider Nurse Practitioner Gerontology; Visit Provider Nurse Practitioner Gerontology
DX: R06.09 Other forms of dyspnea (principal); R53.83 Other fatigue
CPT/HCPCS: 36415; 80048; 83880; 84443; 85025

== ENCOUNTER → 2023-11-20 | Outpatient (CLI) | payer MEDICARE, SELFPAY ==
--- OUTSIDE RECORDS SUMMARY | 2023-11-20 20:03 | XMS RPT_ITS | CCD ---
Author Name Unknown Address [address] [place] [address] Organization [facility] Care Team Providers Care Professor Of Management Name Role Phone Danita Barraza MD Primary Care Provider Jf Escobar Unavailable AMANDA BOLIVAR Attending Unavailable DANITA BARRAZA Primary Care Unavailable AMANDA BOLIVAR Referring Unavailable DANITA BARRAZA Primary Care Unavailable DANITA BARRAZA Primary Care Unavailable AMANDA BOLIVAR Referring Unavailable AMANDA BOLIVAR Attending Unavailable DANITA BARRAZA Primary Care Unavailable Medications Current Medications Medication Drug Class(es) Dates Sig (Normalized) Sig (Original) perflutren lipid microspheres 1.3 mL in NaCl (PF) 0.9% 10 mL injection (DEFINITY) (6 sources) Start: 04-21-2023 End: 07-20-2024 perflutren lipid microspheres 1.3 mL in NaCl (PF) 0.9% 10 mL injection (DEFINITY) 125 ml sodium chloride 9 mg/ml prefilled syringe (6 sources) Start: 04-21-2023 End: 07-20-2024 sodium chloride 0.9 % (flush) 10 mL (BD POSIFLUSH) Completed/Discontinued Medications Medication Drug Class(es) Dates Sig (Normalized) Sig (Original) ascorbic acid 500 mg oral tablet (9 sources) Vitamin C take 1 tablet by paul th once daily ascorbic acid, vitamin C, (VITAMIN C) 500 mg tablet Take 500 mg by mouth once daily. 0 Active Problems Problem Classification Problem Date Documented Da te Episodic/Chronic Congestive heart failure; nonhypertensive (13 sources) Chronic congestive heart failure; Translations: [Heart failure, unspecified] Onset: 05-12-2021 Chronic Coronary atherosclerosis and other heart disease (1 source) History of myocardial infarction; Translations: [Old myocardial infarction] 09-15-2023 Chronic Disorders of lipid metabolism (12 sources) Mixed hyperlipidemia; Translations: [Mixed hyperlipidemia] Onset: 04-21-2023 Chronic Essential hypertension (11 sources) Essential hypertension; Translations: [Essential (primary) hypertension] Onset: 09-02-2019 Chronic Genitourinary symptoms and ill-defined conditions (2 sources) Nocturia; Translations: [Nocturia] Episodic Heart valve disorders (1 source) Mitral valve regurgitation; Translations: [Nonrheumatic mitral (valve) insufficiency] 09-15-2023 Chronic Immunizations and screening for infectious disease (2 sources) Patient encounter status; Translations: [Encounter for immunization] Episodic Other lower respiratory disease (1 source) Dyspnea; Translations: [Shortness of breath] 09-15-2023 Episodic Other lower respiratory disease (1 source) Dyspnea on exertion; Translations: [Other forms of dyspnea] 09-14-2023 Episodic Other lower respiratory disease (1 source) Other forms of dyspnea; Translations: [PATEL (dyspnea on exertion)] Onset: 09-14-2023 Episodic Pulmonary heart disease (1 source) Pulmonary hypertension, unspecified; Translations: [Other chronic pulmonary heart diseases] 09-15-2023 Chronic Results Test Name Value Interpretation Reference Range Facil ity Vital Signs Date Time Vital Sign Value Performing Clinician Tod casiano 09-15-2023 13:54-0400 Body temperature 99.1 [degF] Amanda Bolivar APRN.CNP Work Phone: [facility] 09-15-2023 13:54-0400 Body weight 85.91 kg Amanda Bolivar APRN.CNP Work Phone: [facility] 09-15-2023 13:54-0400 Diastolic blood pressure 78 mm[Hg] Amanda Bolivar APRN.CNP Work Phone: [facility] 09-15-2023 13:54-0400 Heart rate 69 /min Amanda Bolivar APRN.CNP Work Phone: [facility] 09-15-2023 13:54-0400 Respiratory rate 24 /min Amanda Bolivar APRN.CNP Work Phone: [facility] 09-15-2023 13:54-0400 SaO2% (BldA) [Mass fraction] 95 % Amanda Bolivar APRN.CNP Work Phone: [facility] 09-15-2023 13:54-0400 Systolic blood pressure 149 mm[Hg] Amanda Bolivar APRN.CISTERN ROOM OPERATOR Work Phone: [facility] 03-18-2022 12:10-0400 Body temperature 97.11 [degF] Amanda Bolivar APRN.CISTERN ROOM OPERATOR Work Phone: [facility] 03-18-2022 12:10-0400 Body weight 86.18 kg Amanda Bolivar APRN.CISTERN ROOM OPERATOR Work Phone: [facility] 03-18-2022 12:10-0400 Diastolic blood pressure 84 mm[Hg] Amanda Bolivar APRN.CISTERN ROOM OPERATOR Work Phone: [facility] 03-18-2022 12:10-0400 Heart rate 76 /min Amanda Bolivar APRN.CISTERN ROOM OPERATOR Work Phone: [facility] 03-18-2022 12:10-0400 Respiratory rate 16 /min Amanda Bolivar APRN.CISTERN ROOM OPERATOR Work Phone: [facility] 03-18-2022 12:10-0400 Systolic blood pressure 122 mm[Hg] Amanda Bolivar APRN.CNP Work Phone: [facility] Encounters Encounter Date Encounter Type Care Provider Facility Start: 09-15-2023 End: 09-15-2023 ambulatory [facility] Provider [facility] Procedures Date Procedure Procedure Detail Performing Clinician Start: 09-14-2023 Echo tthrc r-t 2d w/wom-mode compl spec&colr d Amanda Bolivar APRN.CNP Work Phone: Start: 04-21-2023 Lipid 1996 panel - S alexis or Plasma Amanda Bolivar APRN.CNP Work Phone: Start: 09-10-2021 Adult depression screening assessment Amanda Bolivar APRN.CNP Work Phone: Plan of Treatment Date Care Activity Detail Author Start: 04-21-2028 Lipid 1996 panel - Serum or Plasma Lipid Screening [facility] Start: 04-21-2028 LIPID SCREEN LIPID SCREEN [facility] Start: 03-19-2027 LIPID SCREEN LIPID SCREEN [facility] Start: 05-12-2026 LIPID SCREEN LIPID SCREEN [facility] Start: 04-21-2026 DIABETES SCREEN DIABETES SCREEN [facility] Start: 04-21-2026 Diabetes Screening Diabetes Screening [facility] Start: 03-19-2025 DIABETES SCREEN DIABETES SCREEN [facility] Start: 09-15-2024 Annual PCP Team Chronic Disease Visit Annual PCP Team Chronic Disease Visit [facility] Start: 05-12-2024 DIABETES SCREEN DIABETES SCREEN [facility] Start: 04-21-2024 ANNUAL PCP TEAM CHRONIC DISEASE VISIT ANNUAL PCP TEAM CHRONIC DISEASE VISIT [facility] Start: 04-21-2024 BP CONTROLLED (<130/80) BP CONTROLLED (<130/80) [facility] Start: 07-14-2023 Covid-19 Vaccine () Covid-19 Vaccine () [facility] Start: 07-14-2023 Influenza vaccination [facility] Start: 03-18-2023 ANNUAL PCP TEAM CHRONIC DISEASE VISIT ANNUAL PCP TEAM CHRONIC DISEASE VISIT [facility] Start: 03-18-2023 COLORECTAL CANCER SCREENING COLORECTAL CANCER SCREENING [facility] Start: 03-18-2023 FECAL OCCULT BLOOD FECAL OCCULT BLOOD [facility] Start: 09-21-2022 End: 11-21-2022 Comprehensive metabolic 2000 panel - Serum or Plasma COMP METABOLIC PANEL Lab Routine Hyperlipidemia, mixed Expected: 09/21/2022 (Approximate), Expires: 11/21/2022 [facility] Work Phone: Immunizations Immunization Date Immunization Notes Care Provider Fa cility 03-18-2022 pneumococcal polysaccharide vaccine, 23 valent Amanda Bolivar APRN.CISTERN ROOM OPERATOR Work Phone: [facility] 09-10-2021 influenza, high-dose , quadrivalent vaccine (FLUZONE HIGH DOSE QUADRIVALENT) Amanda Bolivar APRN.CNP Work Phone: [facility] 09-10-2021 influenza virus vacc ine, unspecified formulation Amanda Bolivar APRN.CISTERN ROOM OPERATOR Work Phone: [facility] 09-02-2019 influenza, high dose seasonal, preservative-free Amanda Bolivar APRN.CISTERN ROOM OPERATOR Work Phone: [facility] 09-02-2019 pneumococcal conjuga te vaccine, 13 valent Amanda Bolivar APRN.CISTERN ROOM OPERATOR Work Phone: [facility] Payers Date Payer Category Payer Medicare MEDICARE MEDICAR E A AND B [id number] 2016-Present [phone] [place] [address] Medicare [id number] 2016 Medicare MEDICARE MEDICAR E A AND B [id number] 2016-Present [phone] [place] [address] Medicare [id number] 2016 Medicare [id number] Social History Date Type Detail Facility Start: 09-02-2019 End: 04-21-2023 Tobacco smoking status NHIS Never smoked tobacco [facility] Start: 09-02-2019 End: 04-21-2023 Tobacco use and exposure Smokeless tobacco non-user [facility] Start: 03-18-2022 End: 04-21-2023 Alcohol intake Ex-drinker (finding) [facility] Start: 09-23-2019 End: 12-25-2019 History SDOH Alcohol Frequency 1 [facility] Start: 12-25-2019 History SDOH Alcohol Std Drinks 98 [facility] Start: 09-23-2019 History SDOH Social Connections Phone 5 [facility] Start: 09-23-2019 History SDOH Social Connections Catholic 3 [facility] Start: 09-23-2019 History SDOH Social Connections Membership 2 [facility] Start: 09-23-2019 History SDOH Physica l Activity DPW 0 [facility] Start: 1950 Sex Assigned At Not on file [facility] Start: 03-08-2022 End: 03-18-2022 Exposure to SARS-CoV-2 (event) Not sure [facility] Start: 10-20-2020 End: 04-21-2023 History of Social function [place] [facility] Work Phone: Start: 10-20-2020 End: 04-21-2023 Tobacco use panel [facility] Work Phone: Adult Depression Scr eening Assessment 0 [facility] Work Phone: Do you belong to any clubs or organizations such as adventist groups, unions, fraternal or athletic groups, or school groups? No [facility] Are you now , , , , never or living with a partner? [facility] How often to you hav e a drink containing alcohol? Never [facility] Do you feel stress - tense, restless, nervous, or anxious, or unable to sleep at night because your mind is troubled all the time - these days [OSQ] Not at all [facility] (I/We) worried wheellie er (my/our) food would run out before (I/we) got money to buy more. Never true [facility] Clinical Notes 03-18-2022 to 09-15-2023 Telephone Encounter - Vanessa Webber MA - 09/15/2023 2:41 PM EDTCAmanda velazquez APRN.CNP - 09/15/2023 1:20 PM EDTTelephone Encounter - Paige Navarrete Ma - 06/16/2023 4:05 PM EDT Note Date & Type Note Facility 09-15-2023 Note HNO ID: [id number] Author: Amanda Bolivar APRN.IVA Service: ? Author Type: Nurse Practitioner Type: Progress Notes Filed: 11/03/2023 7:39 AM Note Text: Chief Complaint Patient presents with: Shortness of Breath: Gradually getting worse HPI Ishan Morales is a 73 year old male who presents here today for Above Complaints. follow up for SOB, intermittent complaints. Here with family member. Patient is here for complaint of shortness of breath. This is an intermittent complaint. Present for many months. Gradually getting worse. Gives the example of walking up a flight of stairs or bending over to tie his shoes as causing shortness of breath. This shortness of breath will last a few minutes and resolves with rest. He denies any chest pain, dizziness, syncope. We did review his echocardiogram which she had yesterday. It is showing moderate pulmonary hypertension along with moderate mitral valve regurgitation. Requesting handcheyenne varner. Patient has an extensive cardiac history. This includes congestive heart failure, AR, CABG. All of these took place prior to moving to [place]. Was living in [place]. He is not followed by cardiology. He had a stress test that was normal in 2019. Also mentions that in 2020 patient had an episode where he almost passed out. Did go to the hospital, was discharged on oxygen. Patient has had oxygen since then. Usually 1.5 L. He wears around the house and also at bedtime. He has never worn his oxygen to an appointment with our office thus we were not aware he was on oxygen. He is requesting a concentrator so that he can easily use and go out into the community with his oxygen on. STOP BANG Questionnaire 1. Snoring Do you snore loudly (louder than talking or loud enough to be heard through closed doors)? YES 2. Tired Do you often feel tired, fatigued, or sleepy during daytime? YES 3. Observed Has anyone observed you stop breathing during your sleep? NO 4. Blood Pressure Do you have or are you being treated for high blood pressure? YES 5. BMI BMI more than 35 kg/m2? NO 6. Age Age over 50 yr old? YES 7. Neck circumference Neck circumference greater than 40 cm? NO 8. Gender Gender male? YES * Neck circumference is measured by staff High risk of HUMA: answering yes to three or more items Low risk of HUMA: answering yes to less than three items Past medical history, appointments, medications, allergies reviewed. EXAM: BP 149/78 Pulse 69 Temp 37.3 ?C (99.1 ?F) (Left Tympanic) Resp 24 Wt 85.9 kg (189 lb 6.4 oz) SpO2 95% BMI 28.80 kg/m? General Appearance: Well appearing, alert, in no acute distress, well-hydrated, well nourished.. Lungs: Lungs clear to auscultation. No wheezing, rhonchi, rales.. Heart: Positive findings: murmur: 2/6 mid systolic low pitched soft murmur ULSB . Component Latest Ref Rng AND Units 04/21/2023 WBC 3.70 - 11.00 k/uL 4.96 RBC 4.20 - 6.00 m/uL 4.76 Hemoglobin 13.0 - 17.0 g/dL 15.3 Hematocrit 39.0 - 51.0 % 45.7 MCV 80.0 - 100.0 fL 96.0 MCH 26.0 - 34.0 pg 32.1 MCHC 30.5 - 36.0 g/dL 33.5 RDW-CV 11.5 - 15.0 % 13.4 Platelet Count 150 - 400 k/uL 125 (L) MPV 9.0 - 12.7 fL 8.5 (L) Neut% % 62.0 Abs Neut (ANC) 1.45 - 7.50 k/uL 3.08 Lymph% % 20.0 Abs Lymph 1.00 - 4.00 k/uL 0.99 (L) [place]% % 9.5 Abs [place] <0.87 k/uL 0.47 Eosin% % 7.5 Abs Eosin <0.46 k/uL 0.37 Baso% % 0.6 Abs Baso <0.11 k/uL 0.03 Immature Gran % % 0.4 IMMATURE GRANS (ABS) <0.10 k/uL <0.03 NRBC /100 WBC 0.0 Absolute nRBC <0.01 k/uL <0.01 DTYPE Auto Protein, Total 6.3 - 8.0 g/dL 6.9 Albumin 3.9 - 4.9 g/dL 4.5 Calcium 8.5 - 10.2 mg/dL 9.6 Bilirubin, Total 0.2 - 1.3 mg/dL 1.5 (H) Alkaline Phosphatase 38 - 113 U/L 59 AST 14 - 40 U/L 16 ALT 10 - 54 U/L 10 Glucose 74 - 99 mg/dL 109 (H) BUN 9 - 24 mg/dL 21 Creatinine 0.73 - 1.22 mg/dL 1.19 Sodium 136 - 144 mmol/L 146 (H) Potassium 3.7 - 5.1 mmol/L 4.5 Chloride 97 - 105 mmol/L 103 CO2 22 - 30 mmol/L 34 (H) Anion Gap 9 - 18 mmol/L 9 eGFR >=60 mL/min/1.73mA? 65 Cholesterol, Total <200 mg/dL 153 Triglyceride <150 mg/dL 140 HDL Cholesterol >39 mg/dL 41 Non HDL Cholesterol <130 mg/dL 112 Fasting Time hrs 14 VLDL Cholesterol <30 mg/dL 28 TC:HDL Ratio <5.10 3.73 LDL Cholesterol <100 mg/dL 84 LDL:HDL Ratio <2.54 2.05 ASSESSMENT/PLAN: 1. Moderate mitral regurgitation by prior echocardiogram - ICD9: 424.0, ICD10: I34.0 (primary diagnosis) - PORTABLE OXYGEN CONCENTRATOR - CONSULT TO CARDIOLOGY 2. Moderate pulmonary hypertension (HCC) - ICD9: 416.8, ICD10: I27.20 -Referred her to cardiology. Likely cause of his ongoing shortness of breath with certain activities. Get PSG to assist with work-up. - PORTABLE OXYGEN CONCENTRATOR - POLYSOMNOGRAM (PSG) - CONSULT TO CARDIOLOGY 3. SOB (shortness of breath) - ICD9: 786.05, ICD10: R06.02 - likely secondary to #2 - PORTABLE OXYGEN CONCENTRATOR - POLYSOMNOGRAM (PSG) (more content not included)... [place] 09-15-2023 Miscellaneous Notes Formattin g of this note might be different from the original. [phone] with demographic & 09/15/23 OV note. Faxed order for PSG STUDY to [facility] [phone] with demographic & 09/15/23 OV note. Vanessa Webber MA documented in this encounter [facility] 09-15-2023 History of Presen t illness Narrative Chief Complaint Patient presents with: Shortness of Breath: Gradually getting worse HPI Ishan Morales is a 73 year old male who presents here today for Above Complaints. follow up for SOB, intermittent complaints. Here with family member. Patient is here for complaint of shortness of breath. This is an intermittent complaint. Present for many months. Gradually getting worse. Gives the example of walking up a flight of stairs or bending over to tie his shoes as causing shortness of breath. This shortness of breath will last a few minutes and resolves with rest. He denies any chest pain, dizziness, syncope. We did review his echocardiogram which she had yesterday. It is showing moderate pulmonary hypertension along with moderate mitral valve regurgitation. Requesting genesis varner. Patient has an extensive cardiac history. This includes congestive heart failure, AR, CABG. All of these took place prior to moving to [place]. Was living in [place]. He is not followed by cardiology. He had a stress test that was normal in 2019. Also mentions that in 2020 patient had an episode where he almost passed out. Did go to the hospital, was discharged on oxygen. Patient has had oxygen since then. Usually 1.5 L. He wears around the house and also at bedtime. He has never worn his oxygen to an appointment with our office thus we were not aware he was on oxygen. He is requesting a concentrator so that he can easily use and go out into the community with his oxygen on. Past medical history, appointments, medications, allergies reviewed. EXAM: BP 149/78 Pulse 69 Temp 37.3 C (99.1 F) (Left Tympanic) Resp 24 Wt 85.9 kg (189 lb 6.4 oz) SpO2 95% BMI 28.80 kg/m General Appearance: Well appearing, alert, in no acute distress, well-hydrated, well nourished.. Lungs: Lungs clear to auscultation. No wheezing, rhonchi, rales.. Heart: Positive findings: murmur: 2/6 mid systolic low pitched soft murmur ULSB . Component Latest Ref Rng & Units 04/21/2023 WBC 3.70 - 11.00 k/uL 4.96 RBC 4.20 - 6.00 m/uL 4.76 Hemoglobin 13.0 - 17.0 g/dL 15.3 Hematocrit 39.0 - 51.0 % 45.7 MCV 80.0 - 100.0 fL 96.0 MCH 26.0 - 34.0 pg 32.1 MCHC 30.5 - 36.0 g/dL 33.5 RDW-CV 11.5 - 15.0 % 13.4 Platelet Count 150 - 400 k/uL 125 (L) MPV 9.0 - 12.7 fL 8.5 (L) Neut% % 62.0 Abs Neut (ANC) 1.45 - 7.50 k/uL 3.08 Lymph% % 20.0 Abs Lymph 1.00 - 4.00 k/uL 0.99 (L) [place]% % 9.5 Abs [place] <0.87 k/uL 0.47 Eosin% % 7.5 Abs Eosin <0.46 k/uL 0.37 Baso% % 0.6 Abs Baso <0.11 k/uL 0.03 Immature Gran % % 0.4 IMMATURE GRANS (ABS) <0.10 k/uL <0.03 NRBC /100 WBC 0.0 Absolute nRBC <0.01 k/uL <0.01 DTYPE Auto Protein, Total 6.3 - 8.0 g/dL 6.9 Albumin 3.9 - 4.9 g/dL 4.5 Calcium 8.5 - 10.2 mg/dL 9.6 Bilirubin, Total 0.2 - 1.3 mg/dL 1.5 (H) Alkaline Phosphatase 38 - 113 U/L 59 AST 14 - 40 U/L 16 ALT 10 - 54 U/L 10 Glucose 74 - 99 mg/dL 109 (H) BUN 9 - 24 mg/dL 21 Creatinine 0.73 - 1.22 mg/dL 1.19 Sodium 136 - 144 mmol/L 146 (H) Potassium 3.7 - 5.1 mmol/L 4.5 Chloride 97 - 105 mmol/L 103 CO2 22 - 30 mmol/L 34 (H) Anion Gap 9 - 18 mmol/L 9 eGFR >=60 mL/min/1.73m 65 Cholesterol, Total <200 mg/dL 153 Triglyceride <150 mg/dL 140 HDL Cholesterol >39 mg/dL 41 Non HDL Cholesterol <130 mg/dL 112 Fasting Time hrs 14 VLDL Cholesterol <30 mg/dL 28 TC:HDL Ratio <5.10 3.73 LDL Cholesterol <100 mg/dL 84 LDL:HDL Ratio <2.54 2.05 ASSESSMENT/PLAN: 1. Moderate mitral regurgitation by prior echocardiogram - ICD9: 424.0, ICD10: I34.0 (primary diagnosis) - PORTABLE OXYGEN CONCENTRATOR - CONSULT TO CARDIOLOGY 2. Moderate pulmonary hypertension (HCC) - ICD9: 416.8, ICD10: I27.20 -Referred her to cardiology. Likely cause of his ongoing shortness of breath with certain activities. Get PSG to assist with work-up. - PORTABLE OXYGEN CONCENTRATOR - POLYSOMNOGRAM (PSG) - CONSULT TO CARDIOLOGY 3. SOB (shortness of breath) - ICD9: 786.05, ICD10: R06.02 - likely secondary to #2 - PORTABLE OXYGEN CONCENTRATOR - POLYSOMNOGRAM (PSG) - CONSULT TO CARDIOLOGY 4. Chronic congestive heart failure, unspecified heart failure type (HCC) - ICD9: 428.0, ICD10: I50.9 - PORTABLE OXYGEN CONCENTRATOR - POLYSOMNOGRAM (PSG) - CONSULT TO CARDIOLOGY 5. History of AR (myocardial infarction) - ICD9: 412, ICD10: I25.2 - PORTABLE OXYGEN CONCENTRATOR - CONSULT TO CARDIOLOGY Amanda Bolivar APRN.CNP [employer] [facility] printed. Sent portable oxygen concentrator to the [facility]. This note was partly generated using [employer] voice recognition dictation and may contain some misspelled or inaccurate words missed on review. documented in this encounter [facility] 06-16-2023 Miscellaneous Notes Formattin g of this note is different from the original. The following approved medication requests have been transmitted electronically. Requested Prescriptions Signed Prescriptions Disp Refills potassium chloride (K-TAB) 10 mEq tablet 90 tablet 3 Sig: Take 1 tablet by mouth daily with breakfast. Authorizing Provider: DANITA BARRAZA Ma OK for potassium tabs as ordered Danita Barraza MD [facility] calling regarding script received for Effer-K 10 mEq on 06/14. States patient would like regular potassium pills if possible. Asking if provider would send new script indicating this request, if possible. Thank you. documented in this encounter [facility] 06-14-2023 Miscellaneous Notes Formattin g of this note is different from the original. The following approved medication requests have been transmitted electronically. Requested Prescriptions Pending Prescriptions Disp Refills potassium bicarbonate-citric acid (EFFER-K) 10 mEq tablet 90 tablet 3 Sig: Take 1 tablet by mouth once daily. Amanda Bolivar APRN.CNP Patient has been identified by name and date of : Yes Last office visit in this department: 04/21/2023 Labs-04/21/23 NOV-none RX INSTRUCTIONS: Patient aware RX will be sent to pharmacy. No need to notify patient. Patient phones requesting refills as follows: Requested Prescriptions Pending Prescriptions Disp Refills potassium bicarbonate-citric acid (EFFER-K) 10 mEq tablet Sig: Take 1 tablet by mouth once daily. Please review and advise. Zulema Underwood documented in this encounter [facility] 04-21-2023 Note HNO ID: [id number] Author: Amanda Bolivar APRN.CNP Service: ? Author Type: Nurse Practitioner Type: Progress Notes Filed: 04/21/2023 10:19 AM Note Text: Ishan Morales is a 72 year old male here for a Medicare Initial Annual Wellness Visit Health Risk Assessment In general, health is: Good Concerns with balance:Several days Uses a cane Concerns with teeth or dentures:Not at all Concerns with sexual function:Not at all [place] anxious, stressed, angry, irritable, lonely, isolated, or had thoughts of hurting themself: Not at all Has little interest or pleasure in doing things: Not at all Bothered by feeling down, depressed, or hopeless: Not at all Needs help with grocery shopping, cooking, housework, bathing, grooming, dressing, eating, sitting or standing, walking, using the toilet, handling finances, taking medications, using the telephone, or driving: Yes daughter drives Following safety precautions in the home environment and vehicle: removed throw rugs from floors, installed grab bars in the bathroom, handrails in stairwells, having adequate lighting, wearing seatbelt at all times?: Yes Smokes cigarettes, vapes, or chew tobacco: No Eats healthy foods including fruits, vegetables, whole grains, and fiber-rich foods: Several days Number of days per week engages in exercise: 0 days Average alcohol consumption: Never Current Providers Specialists: I have reviewed specialist-related care of the patient in the medical record. Medical/Family history review Reviewed and updated problem list, medical/surgical/family/social history, medications, and allergies. Opioid use review Patient is not currently using opioids. Depression screening Depression Screening PHQ-2 Score 09/23/2019 0 Depression screening tool completed and reviewed. Based on score and interview, patient is not at risk for depression. Screening tool discussed with patient, and I recommended no further intervention at this time. Functional Observation Was the patient's timed Up AND Go test unsteady or ? 12 seconds? No [facility] Planning End of Life planning discussed, including patient's advanced directive wishes: Yes Measurements BP 136/76 Pulse 60 Temp (Src) 98.4 (Right Tympanic) Resp 18 Ht 5' 8 (1.73m) Wt 183 lb 12.8 oz (83.4kg) BMI 27.95 kg/(m2). Visual acuity (required for Welcome to Medicare): follows with optometry/ophthalmology [facility] Hearing Evaluation: within normal limits Assessment/Plan Counseling - Counseled on healthy diet and regular exercise - Fall avoidance - Colorectal cancer screening recommended - agrees to iFOBT testing - Lipid panel - Diabetes screening Lifestyle screening - Depression screening Amanda Bolivar APRN.IVA [place] 04-21-2023 Note HNO ID: [id number] Author: Amanda Bolivar APRN.IVA Service: ? Author Type: Nurse Practitioner Type: Progress Notes Filed: 04/21/2023 10:19 AM Note Text: Chief Complaint Patient presents with: Follow up HPI Kylahkristiancullen Morales is a 72 year old male who presents here today for Chronic Medical Conditions. follow up for HTN, HLD, CHF, BPH. Here with daughter. Lives with her. Taking medications as prescribed. He is due for refills. He does follow up with [facility] overdue for follow-up. Overall denies any chest pain or dizziness. Patient states that he is short of breath at times. Gives example of bending over or walking long distances. States that this has been present since around [place] time, approximately 6 months ago. He denies any leg swelling. No cough. Does have a nonhealing skin problem on his back. Would like for me to take a look at it. It bleeds when he dries off. No trauma. History of BPH. Nocturia x1 nightly. He is comfortable with this. Taking Flomax without side effects. Depression Screening 09/23/2019 04/21/2023 PHQ-2 Score 0 0 Depression screening tool completed and reviewed. Based on score and interview, patient is not at risk for depression. Screening tool discussed with patient, and I recommended no further intervention at this time. Past medical history, appointments, medications, allergies reviewed. EXAM: BP 136/76 Pulse 60 Temp 36.9 ?C (98.4 ?F) (Right Tympanic) Resp 18 Ht 172.7 cm (5' 8 ) Wt 83.4 kg (183 lb 12.8 oz) BMI 27.95 kg/m? General Appearance: Well appearing, alert, in no acute distress, well-hydrated, well nourished.. Skin: Approximate 2 x 3 cm oval lesion, purple and red in color. Head: Normocephalic, no masses, lesions, tenderness or abnormalities. Eyes: Anicteric sclera. Pupils are equally round and reactive to light. Extraocular movements are intact. . Neck: Supple, no adenopathy; thyroid symmetric, normal size Lungs: Lungs clear to auscultation. No wheezing, rhonchi, rales.. Heart: Positive findings: murmur: 2/6 mid systolic low pitched blowing murmur URSB, ULSB, LSB, and LLSB . Extremities: No deformities, edema. ASSESSMENT/PLAN: 1. Primary hypertension - ICD9: 401.9, ICD10: I10 - Controlled - Continue current medications - Recommend home blood pressure monitoring, to bring results to next visit - Encouraged sodium restriction, DASH or Mediterranean diet - Recommend regular aerobic exercise - COMP METABOLIC PANEL - LISINOPRIL 20 MG TABLET 2. Chronic congestive heart failure, unspecified heart failure type (HCC) - ICD9: 428.0, ICD10: I50.9 Weight decreasing - Meds refills, echo ordered, asked patient to get back to [facility]. - CARVEDILOL 6.25 MG TABLET - CBC + DIFF - ECHO - PERFLUTREN LIPID MICROSPHERES 1.1 MG/ML INJECTION IN NS 10 ML - SODIUM CHLORIDE 0.9 % (FLUSH) INJECTION SYRINGE 3. Hyperlipidemia, mixed - ICD9: 272.2, ICD10: E78.2 - Control undetermined, due for labs - Continue current medications - Counseled on healthy diet and regular exercise - SIMVASTATIN 20 MG TABLET - COMP METABOLIC PANEL - LIPID PANEL BASIC 4. Nocturia - ICD9: 788.43, ICD10: R35.1 -Stable continue Flomax as prescribed. - TAMSULOSIN 0.4 MG CAPSULE 5. Weak urinary stream - ICD9: 788.62, ICD10: R39.12 - TAMSULOSIN 0.4 MG CAPSULE 6. PATEL (dyspnea on exertion) - ICD9: 786.09, ICD10: R06.09 - Re-evaluate echo. Last EF was 45%. Secondary to CHF. See #3 - ECHO - PERFLUTREN LIPID MICROSPHERES 1.1 MG/ML INJECTION IN NS 10 ML - SODIUM CHLORIDE 0.9 % (FLUSH) INJECTION SYRINGE 7. Non-healing skin lesion - ICD9: 709.9, ICD10: L98.9 - Non-healing. Get second opinion. He will call Dileep Egan - CONSULT TO DERMATOLOGY Amanda Bolivar APRN.CISTERN ROOM OPERATOR RTO in 6 months, sooner if needed. This note was partly generated using [employer] voice recognition dictation and may contain some misspelled or inaccurate words missed on review. [place] 04-18-2022 Miscellaneous Notes Faxed back to number below. Paige Navarrete Ma Form done Danita Barraza MD Office received fax from [facility] for Oxygen. Please review and complete. Routed to PCP. Once completed fax to [phone]. Paige Navarrete Ma documented in this encounter [facility] 05-10-2022 Miscellaneous Notes Letter mailed to pt home of results. Mary Kelly MA Pt was left a vm to return call. Please inform patient that his labs look fine. Continue with current medications and follow up in 6 months. Amanda Bolivar APRN.CNP documented in this encounter [facility] 03-18-2022 History of Presen t illness Narrative Chief Complaint Patient presents with: Follow Up HPI Ishan Morales is a 71 year old male who presents here today for Chronic Medical Conditions.. Did not get labs completed prior to encounter. HTN: Patient is compliant with meds Yes Monitors bp at home: Yes. Stable Denies side effects: No. Chest pain: No. Dyspnea: Yes. baseline Edema: No. Palpitations: No. Syncope: No. Headache: No. Dizziness: No. HYPERLIPIDEMIA: Patient is taking medications: Yes. Patient is watching diet: Yes. Patient denies myalgias: Yes. Patient denies gi upset: Yes BPH: No issues at this time. Using Flomax 0.4 mg nightly Following with [facility] for CHF. On oxygen 2 L at night and as needed with activity. Taking prescribed lasix and K+ supplement. Past medical history, appointments, medications, allergies reviewed. Previous Medical History PAST MEDICAL HISTORY Diagnosis Date Deaf, right Hernia High cholesterol Hydrocele Hypertension Previous Surgical History PAST SURGICAL HISTORY Procedure Laterality Date HERNIA REPAIR HX REPAIR OF HYDROCELE Family History FAMILY HISTORY Problem Relation Age of Onset Heart Brother CABG X4 Patient Allergies ALLERGIES No Known Allergies Current Medications Current Outpatient Medications on File Prior to Visit Medication Sig furosemide (LASIX) 40 mg tablet Take 1 tablet by mouth once daily. potassium bicarbonate-citric acid (EFFER-K) 10 mEq tablet Take 1 tablet by mouth once daily. simvastatin (ZOCOR) 20 mg tablet Take 1 tablet by mouth daily at bedtime. carvedilol (COREG) 6.25 mg tablet Take 1 tablet by mouth twice daily with meals. tamsulosin (FLOMAX) 0.4 mg Take 1 capsule by mouth daily at bedtime. lisinopril (ZESTRIL, PRINIVIL) 20 mg tablet Take 1 tablet by mouth once daily. aspirin 81 mg chewable tablet Take 81 mg by mouth once daily. multivitamin/iron/folic acid (CENTRUM COMPLETE ORAL) Take by mouth. Ascorbic Acid (VITAMIN C) 1,000 mg tablet Take 1,000 mg by mouth twice daily. glucosamine/chondr pacheco A sod (OSTEO BI-FLEX ORAL) Take by mouth. No current facility-administered medications on file prior to visit. Social History Social History Tobacco Use Smoking status: Never Smoker Smokeless tobacco: Never Used Vaping Use Vaping Use: Never used Substance Use Topics Alcohol use: Not Currently Drug use: Never REVIEW OF SYSTEMS: as above Reviewed relevant PMHx, PSHx, Social Hx, current medications and allergies. EXAM: BP 122/84 Pulse 76 Temp 36.2 C (97.1 F) (Left Tympanic) Resp 16 Wt 86.2 kg (190 lb) BMI 28.89 kg/m General Appearance: Well appearing, alert, in no acute distress, well-hydrated, well nourished.. Head: Normocephalic, no masses, lesions, tenderness or abnormalities. Lungs: Lungs clear to auscultation. No wheezing, rhonchi, rales.. Heart: Positive findings: murmur: 2/6 mid systolic blowing. Abdomen: Normal abdominal exam, Abdomen soft, non-tender. Bowel sounds normal. No masses, organomegaly. Extremities: No deformities, edema Health Maintenance List DTAP,TDAP,TD(1 - Tdap) Never done COLORECTAL CANCER SCREENING Never done SHINGRIX VACCINE(1 of 2) Never done PNEUMOVAX AGE 65 AND OVER WITH 5YR LOOKBACK(1) Never done COVID-19 VACCINE(3 - Booster for Pfizer series) due on 08/05/2021 ADVANCE DIRECTIVE DISCUSSION Never done HEPATITIS C SCREENING due on 09/10/2022 BP CONTROLLED (<130/80) due on 05/12/2022 ANNUAL PCP TEAM CHRONIC DISEASE VISIT due on 09/10/2022 DEPRESSION SCREENING due on 09/10/2022 DIABETES SCREEN due on 05/12/2024 LIPID SCREEN due on 05/12/2026 INFLUENZA Completed MENINGOCOCCAL CONJUGATE Aged Out Data reviewed None recently. ASSESSMENT/PLAN: 1. Primary hypertension - ICD9: 401.9, ICD10: I10 (primary diagnosis) - good control - Continue current medication(s) - Recommended regular aerobic exercise. - Recommend home blood pressure monitoring, to bring results in on next visit - Goal of BP <130/80 - LISINOPRIL 20 MG TABLET 2. Hyperlipidemia, mixed - ICD9: 272.2, ICD10: E78.2 - good control - Continue current medication. - Encouraged following a low fat, low cholesterol diet. - Discussed the benefits of regular aerobic exercise and weight loss. - SIMVASTATIN 20 MG TABLET 3. Nocturia - ICD9: 788.43, ICD10: R35.1 - BPH stable, continue with Flomax as prescribed - TAMSULOSIN 0.4 MG CAPSULE 4. Weak urinary stream - ICD9: 788.62, ICD10: R39.12 See #3 - TAMSULOSIN 0.4 MG CAPSULE 5. Chronic congestive heart failure, unspecified heart failure type (HCC) - ICD9: 428.0, ICD10: I50.9 - Weight is stable. Continue with following with cardiology - CARVEDILOL 6.25 MG TABLET 6. Screening for colon cancer - ICD9: V76.51, ICD10: Z12.11 - FECAL OCCULT BLOOD TEST 7. Encounter for immunization - ICD9: V03.89, ICD10: Z23 - PNEUMOCOCCAL IMMUNIZATION PPSV 23 Amanda Bolivar APRN.CNP RTO in 6 months, sooner if needed. This note was partly generated using [employer] voice recognition dictation and may contain some misspelled or inaccurate words missed on review. documented in this encounter [facility] 03-18-2022 Instructions Amanda Bolivar APRN.CNP - 03/18/2022 12:17 PM EDT 1. Get blood work completed. 2. Refills sent. 3. Follow up in 6 months. documented in this encounter [facility] Diagnosis Hyperlipidemia, mixed- Primary Mixed hyperlipidemia [facility] Diagnosis Moderate mitral regurgitation by prior echocardiogram- Primary Mitral valve disorders Moderate pulmonary hypertension (HCC) SOB (shortness of breath) Shortness of breath Chronic congestive heart failure, unspecified heart failure type (HCC) History of AR (myocardial infarction) Old myocardial infarction [facility] Diagnosis Chronic congestive heart failure, unspecified heart failure type (HCC) PATEL (dyspnea on exertion) Other dyspnea and respiratory abnormality [facility]* Outpatient Procedure (Routine) - Closed Specialty Diagnoses / Procedures Referred By Felix dodson Referred To [facility] Diagnoses Chronic congestive heart failure, unspecified heart failure type (HCC) PATEL (dyspnea on exertion) Procedures ECHO ECHO TTHRC R-T 2D W/WOM-MODE COMPL SPEC&COLR D Amanda Bolivar APRN.CISTERN ROOM OPERATOR [address] [place] [address] [facility] [place] [address] [place] [address] Referral ID Status Reason Start Date Expiration Date V isits Requested Visits Authorized [id number] Closed Auto-Generate d Referral 04/21/2023 04/20/2024 1 1 [facility] Reason for Referral Specialty Diagnoses / Procedures Referred By Felix dodson Referred To Contact Cardiology Diagnoses Moderate mitral regurgitation by prior echocardiogram Moderate pulmonary hypertension (HCC) SOB (shortness of breath) Chronic congestive heart failure, unspecified heart failure type (HCC) History of AR (myocardial infarction) Procedures CONSULT TO CARDIOLOGY OFFICE/OUTPATIENT [facility] 60-74 MINUTES Amanda Bolivar, HERBER.CISTERN ROOM OPERATOR [address] [place] [address] Referral ID Status Reason Start Date Expiration Date Visits Requested Visits Authorized [id number] Authorized PCP Requested Referral 09/15/2023 09/14/2024 1 1 Summary Purpose Family History No Family History Records Found Advance Directives No Advanced Directives Records Found Additional Source Comments Source Comments (unrecognize d section and content) In the event this informatio n is protected by the Federal Confidentiality of Alcohol and Drug Abuse Patient Records regulations: The Federal rules restrict any use of the information to criminally investigate or prosecute any alcohol or drug abuse patient.[facility] the event this information is protected by the Federal Confidentiality of Alcohol and Drug Abuse Patient Records regulations: The Federal rules restrict any use of the information to criminally investigate or prosecute any alcohol or drug abuse patient.[facility] the event this information is protected by the Federal Confidentiality of Alcohol and Drug Abuse Patient Records regulations: The Federal rules restrict any use of the information to criminally investigate or prosecute any alcohol or drug abuse patient.[facility] the event this information is protected by the Federal Confidentiality of Alcohol and Drug Abuse Patient Records regulations: The Federal rules restrict any use of the information to criminally investigate or prosecute any alcohol or drug abuse patient.[facility] the event this information is protected by the Federal Confidentiality of Alcohol and Drug Abuse Patient Records regulations: The Federal rules restrict any use of the information to criminally investigate or prosecute any alcohol or drug abuse patient.[facility] the event this information is protected by the Federal Confidentiality of Alcohol and Drug Abuse Patient Records regulations: The Federal rules restrict any use of the information to criminally investigate or prosecute any alcohol or drug abuse patient.[facility] the event this information is protected by the Federal Confidentiality of Alcohol and Drug Abuse Patient Records regulations: The Federal rules restrict any use of the information to criminally investigate or prosecute any alcohol or drug abuse patient.[facility] the event this information is protected by the Federal Confidentiality of Alcohol and Drug Abuse Patient Records regulations: The Federal rules restrict any use of the information to criminally investigate or prosecute any alcohol or drug abuse patient.[facility] the event this information is protected by the Federal Confidentiality of Alcohol and Drug Abuse Patient Records regulations: The Federal rules restrict any use of the information to criminally investigate or prosecute any alcohol or drug abuse patient.[facility] Reason for Visit (unrecogniz ed section and content) Reason Comments Results Reason Comments Forms Reason Comments Refill Request Potassium Reason Comments Shortness of Breath Gradually getting wo rse Reason Comments Orders Care Teams (unrecognized sec tion and content) Professor Of Management Relationship Specialty Start Date End Date Danita Barraza MD [address] [place] [address] PCP - General Family Practice 09/02/19 Jf Escobar [address] [facility] [address] [place] [address] Physician Cardiology 09/04/19 Professor Of Management Relationship Specialty Start Date End Date Danita Barraza MD [address] [place] [address] PCP - General Family Practice 09/02/19 Jf Escobar [address] [place] [address] Physician Cardiology 09/04/19 Professor Of Management Relationship Specialty Start Date End Date Danita Barraza MD [address] [place] [address] PCP - General Family Medicine 09/02/19 Jf Escobar [address] [place] [address] Physician Cardiology 09/04/19 Professor Of Management Relationship Specialty Start Date End Date Danita Barraza MD [address] [place] [address] PCP - General Family Medicine 09/02/19 Jf Escobar [address] [place] [address] Physician Cardiology 09/04/19 Professor Of Management Relationship Specialty Start Date End Date Danita Barraza MD [address] [place] [address] PCP - General Family Medicine 09/02/19 [address]f Escobar [address] [address] Physician Cardiology 09/04/19 Professor Of Management Relationship Specialty Start Date End Date Danita Barraza MD [address] [place] [address] PCP - General Family Medicine 09/02/19 Jf Escobar [address] [address] Physician Cardiology 09/04/19 Professor Of Management Relationship Specialty Start Date End Date Danita Barraza MD [address] [place] [address] PCP - General Family Medicine 09/02/19 Jf Escobar MD [address] [facility] [address] [place], [place] [address] Physician Cardiology 09/04/19 Professor Of Management Relationship Specialty Start Date End Date Danita Barraza MD [address] [place], [place] [address] PCP - General Family Medicine 09/02/19 Jf Escobar MD [address] [facility] [address] [place], [place] [address] Physician Cardiology 09/04/19 (unrecognized sect ion and content) No Status Records Found INFORMATION SOURCE (unrecogn ized section and content) FOR RECORDS PERTAINING TO PATIENTS WHO ARE OR HAVE BEEN ENROLLED IN A CHEMICAL DEPENDENCY/SUBSTANCEABUSE PROGRAM, SOME INFORMATION MAY BE OMITTED. This clinical summary was aggregated from multiple sources. Caution should be exercised in using it in the provision of clinical care. This summary normalizes information from multiple sources, and as a consequence, information in this document may materially change the coding, format and clinical context of patient data. In addition, data may be omitted in some cases. CLINICAL DECISIONS SHOULD BE BASED ON THE PRIMARY CLINICAL RECORDS. [employer] provides no warranty or guarantee of the accuracy or completeness of information in this document.
== END | disposition home or self-care (01) ==
LOC: SL 20:01
PROVIDERS: PCP Family Medicine; Referring Provider Nurse Practitioner Family; Visit Provider Nurse Practitioner Family
DX: G47.30 Sleep apnea, unspecified (principal); G47.10 Hypersomnia, unspecified
CPT/HCPCS: 95810

== ENCOUNTER → 2023-11-29 | Outpatient (CLI) | payer MEDICARE, SELFPAY ==
--- OUTSIDE RECORDS SUMMARY | 2023-11-29 17:13 | XMS RPT_ITS | CCD ---
Author Name Unknown Address [address] [place] [address] Organization [facility] Care Team Providers Care Milk Tester Name Role Phone Danita Barraza MD Primary Care Provider [phone] Jf Escobar Unavailable AMANDA BOLIVAR Attending Unavailable [...] 99.1 [degF] Amanda Bolivar APRN.CNP Work Phone: [facility] 09-15-2023 13:54-0400 Body weight 85.91 kg Amanda Bolivar APRN.CNP Work Phone: [facility] [place] 09-15-2023 13:54-0400 Diastolic blood pressure 78 mm[Hg] Amanda Bolivar APRN.CNP Work Phone: [facility] [place] 09-15-2023 13:54-0400 Heart rate 69 /min Amanda Bolivar APRN.CNP Work Phone: [facility] [place] 09-15-2023 13:54-0400 Respiratory rate 24 /min Amanda Bolivar APRN.CNP Work Phone: [facility] [place] 09-15-2023 13:54-0400 SaO2% (BldA) [Mass fraction] 95 % Amanda Bolivar APRN.CNP Work Phone: [facility] [place] 09-15-2023 13:54-0400 Systolic blood pressure 149 mm[Hg] Amanda Bolivar APRN.PRESSURE CONTROL SUPERVISOR Work Phone: [facility] [place] 03-18-2022 12:10-0400 Body temperature 97.11 [degF] Amanda Bolivar APRN.PRESSURE CONTROL SUPERVISOR Work Phone: [facility] [place] 03-18-2022 12:10-0400 Body weight 86.18 kg Amanda Bolivar APRN.PRESSURE CONTROL SUPERVISOR Work Phone: [facility] [place] 03-18-2022 12:10-0400 Diastolic blood pressure 84 mm[Hg] Amanda Bolivar APRN.PRESSURE CONTROL SUPERVISOR Work Phone: [facility] [place] 03-18-2022 12:10-0400 Heart rate 76 /min Amanda Bolivar APRN.PRESSURE CONTROL SUPERVISOR Work Phone: [facility] [place] 03-18-2022 12:10-0400 Respiratory rate 16 /min Amanda Bolivar APRN.PRESSURE CONTROL SUPERVISOR Work Phone: [facility] [place] 03-18-2022 12:10-0400 Systolic blood pressure 122 mm[Hg] Amanda Bolivar APRN.CNP Work Phone: [facility] Encounters Encounter Date Encounter Type Care Provider [...] panel - Serum or Plasma Lipid Screening [facility] Start: 04-21-2028 LIPID SCREEN LIPID SCREEN [facility] Start: 03-19-2027 LIPID SCREEN LIPID SCREEN [facility] Start: 05-12-2026 LIPID SCREEN LIPID SCREEN [facility] Start: 04-21-2026 DIABETES SCREEN DIABETES SCREEN [facility] Start: 04-21-2026 Diabetes Screening Diabetes Screening [facility] Start: 03-19-2025 DIABETES SCREEN DIABETES SCREEN [facility] Start: 09-15-2024 Annual PCP Team Chronic Disease Visit Annual PCP Team Chronic Disease Visit [facility] Start: 05-12-2024 DIABETES SCREEN DIABETES SCREEN [facility] Start: 04-21-2024 ANNUAL PCP TEAM CHRONIC DISEASE VISIT ANNUAL PCP TEAM CHRONIC DISEASE VISIT [facility] Start: 04-21-2024 BP CONTROLLED (<130/80) BP CONTROLLED (<130/80) [facility] Start: 07-14-2023 Covid-19 Vaccine () Covid-19 Vaccine () [facility] Start: 07-14-2023 Influenza vaccination [facility] Start: 03-18-2023 ANNUAL PCP TEAM CHRONIC DISEASE VISIT ANNUAL PCP TEAM CHRONIC DISEASE VISIT [facility] Start: 03-18-2023 COLORECTAL CANCER SCREENING COLORECTAL CANCER SCREENING [facility] Start: 03-18-2023 FECAL OCCULT BLOOD FECAL OCCULT BLOOD [facility] Start: 09-21-2022 End: 11-21-2022 Comprehensive metabolic 2000 panel - Serum or Plasma COMP METABOLIC PANEL Lab Routine Hyperlipidemia, mixed Expected: 09/21/2022 (Approximate), Expires: 11/21/2022 [facility] Work Phone: Immunizations Immunization Date Immunization Notes Care Provider Fa cility 03-18-2022 pneumococcal polysaccharide vaccine, 23 valent Amanda Bolivar APRN.PRESSURE CONTROL SUPERVISOR Work Phone: [facility] [place] 09-10-2021 influenza, high-dose , quadrivalent vaccine (FLUZONE HIGH DOSE QUADRIVALENT) Amanda Bolivar APRN.CNP Work Phone: [facility] [place] 09-10-2021 influenza virus vacc ine, unspecified formulation Amanda Bolivar APRN.PRESSURE CONTROL SUPERVISOR Work Phone: [facility] [place] 09-02-2019 influenza, high dose seasonal, preservative-free Amanda Bolivar APRN.PRESSURE CONTROL SUPERVISOR Work Phone: [facility] 09-02-2019 pneumococcal conjuga te vaccine, 13 valent Amanda Bolivar APRN.PRESSURE CONTROL SUPERVISOR Work Phone: [facility] Payers Date Payer Category Payer Medicare MEDICARE MEDICAR E A AND B [id number] 2016-Present [phone] [place] [address] Medicare [id number] 2016 Medicare MEDICARE MEDICAR E A AND B [id number] 2016-Present [phone] [place] [address] Medicare [id number] 2016 Medicare [id number] Social History Date Type Detail Facility Start: 09-02-2019 End: 04-21-2023 Tobacco smoking status NHIS Never smoked tobacco [facility] Start: 09-02-2019 End: 04-21-2023 Tobacco use and exposure Smokeless tobacco non-user [facility] Start: 03-18-2022 End: 04-21-2023 Alcohol intake Ex-drinker (finding) [facility] Start: 09-23-2019 End: 12-25-2019 History SDOH Alcohol Frequency 1 [facility] Start: 12-25-2019 History SDOH Alcohol Std Drinks 98 [facility] Start: 09-23-2019 History SDOH Social Connections Phone 5 [facility] Start: 09-23-2019 History SDOH Social Connections Taoism 3 [facility] Start: 09-23-2019 History SDOH Social Connections Membership 2 [facility] Start: 09-23-2019 History SDOH Physica l Activity DPW 0 [facility] Start: 1950 Sex Assigned At Not on file [facility] Start: 03-08-2022 End: 03-18-2022 Exposure to SARS-CoV-2 (event) Not sure [facility] Start: 10-20-2020 End: 04-21-2023 History of Social function [facility] Work Phone: Start: 10-20-2020 End: 04-21-2023 Tobacco use panel [facility] Work Phone: Adult Depression Scr eening Assessment 0 [facility] Work Phone: Do you belong to any clubs or organizations such as adventism groups, unions, fraternal or athletic groups, or school groups? No [facility] Are you now , , , , never or living with a partner? [facility] How often to you hav e a drink containing alcohol? Never [facility] Do you feel stress - tense, restless, nervous, or anxious, or unable to sleep at night because your mind is troubled all the time - these days [OSQ] Not at all [facility] (I/We) worried wheellie er (my/our) food would run out before (I/we) got money to buy more. Never true [facility] Clinical Notes 03-18-2022 to 09-15-2023 Telephone Encounter - Vanessa Webber MA - 09/15/2023 2:41 PM EDTCAmanda velazquez APRN.CNP - 09/15/2023 1:20 PM EDTTelephone Encounter - Paige Navarrete Ma - 06/16/2023 4:05 PM EDT Note Date & Type Note Facility 09-15-2023 Note HNO ID: [id number] Author: Amanda Bolivar APRN.IVA Service: ? Author [...] cardiac history. This includes congestive heart failure, CO, CABG. All of these took place prior to moving to [place]. Was living in [place]. He is not followed by cardiology. He [...] Lymph 1.00 - 4.00 k/uL 0.99 (L) White% % 9.5 Abs White <0.87 k/uL 0.47 Eosin% % 7.5 Abs [...] - POLYSOMNOGRAM (PSG) (more content not included)... [facility] 09-15-2023 Miscellaneous Notes Formattin g of this note might be different from the original. [phone] with demographic & 09/15/23 OV note. Faxed order for PSG STUDY to [facility] [phone] with demographic & 09/15/23 OV note. Vanessa Webber MA documented in this encounter [facility] 09-15-2023 History of Presen t illness Narrative [...] cardiac history. This includes congestive heart failure, CO, CABG. All of these took place prior to moving to [place]. Was living in [place]. He is not followed by cardiology. He [...] Lymph 1.00 - 4.00 k/uL 0.99 (L) White% % 9.5 Abs White <0.87 k/uL 0.47 Eosin% % 7.5 Abs [...] - CONSULT TO CARDIOLOGY 5. History of CO (myocardial infarction) - ICD9: 412, ICD10: I25.2 - PORTABLE OXYGEN CONCENTRATOR - CONSULT TO CARDIOLOGY Amanda Bolivar APRN.CNP [employer] printed. Sent portable oxygen concentrator to the [facility]. This note was partly generated using [employer] voice recognition dictation and may contain some misspelled or inaccurate words missed on review. documented in this encounter [facility] 06-16-2023 Miscellaneous Notes Formattin g of this note is different from the original. The following approved medication requests have been transmitted electronically. Requested Prescriptions Signed Prescriptions Disp Refills potassium chloride (K-TAB) 10 mEq tablet 90 tablet 3 Sig: Take 1 tablet by mouth daily with breakfast. Authorizing Provider: DANITA BARRAZA Ma [place] for potassium tabs as ordered Danita Barraza MD [facility] calling regarding script received for Effer-K 10 mEq on 06/14. States patient would like regular potassium pills if possible. Asking if provider would send new script indicating this request, if possible. Thank you. documented in this encounter [facility] 06-14-2023 Miscellaneous Notes Formattin g of this [...] advise. Zulema Underwood documented in this encounter [facility] 04-21-2023 Note HNO ID: [id number] Author: Amanda Bolivar APRN.CNP Service: ? Author Type: Nurse Practitioner Type: Progress Notes Filed: 04/21/2023 10:19 AM Note Text: Ishan Morales is a 72 year old male here for a Medicare Initial Annual Wellness Visit Health Risk Assessment In general, health is: Good Concerns with balance:Several days Uses a cane Concerns with teeth or dentures:Not at all Concerns with sexual function:Not at all [place] anxious, stressed, angry, irritable, lonely, isolated, or [...] for Welcome to Medicare): follows with optometry/ophthalmology [facility] Hearing Evaluation: within normal limits Assessment/Plan Counseling - Counseled on healthy diet and regular exercise - Fall avoidance - Colorectal cancer screening recommended - agrees to iFOBT testing - Lipid panel - Diabetes screening Lifestyle screening - Depression screening Amanda Bolivar APRN.IVA [facility] 04-21-2023 Note HNO ID: [id number] Author: Amanda Bolivar APRN.IVA Service: ? Author [...] for refills. He does follow up with [facility] overdue for follow-up. Overall denies any chest pain or dizziness. Patient states that he is short of breath at times. Gives example of bending over or walking long distances. States that this has been present since around Marnie time, approximately 6 months ago. He denies [...] ordered, asked patient to get back to [facility]. - CARVEDILOL 6.25 MG TABLET - [...] Egan - CONSULT TO DERMATOLOGY Amanda Bolivar APRN.PRESSURE CONTROL SUPERVISOR RTO in 6 months, sooner if needed. This note was partly generated using [employer] voice recognition dictation and may contain some misspelled or inaccurate words missed on review. [facility] 04-18-2022 Miscellaneous Notes Faxed back to number below. Paige Navarrete Ma Form done Danita Barraza MD Office received fax from [facility] for Oxygen. Please review and complete. Routed to PCP. Once completed fax to [phone]. Paige Navarrete Ma documented in this encounter [facility] 05-10-2022 Miscellaneous Notes Letter mailed to pt home of results. Mary Kelly MA Pt was left a vm to return call. Please inform patient that his labs look fine. Continue with current medications and follow up in 6 months. Amanda Bolivar APRN.CNP documented in this encounter [facility] 03-18-2022 History of Presen t illness Narrative [...] Using Flomax 0.4 mg nightly Following with [facility] for CHF. On oxygen 2 [...] needed. This note was partly generated using [employer] voice recognition dictation and may contain some misspelled or inaccurate words missed on review. documented in this encounter [facility] 03-18-2022 Instructions Amanda Bolivar APRN.CNP - 03/18/2022 12:17 PM EDT 1. Get blood work completed. 2. Refills sent. 3. Follow up in 6 months. documented in this encounter [facility] documented in this encounter [facility] Diagnosis Hyperlipidemia, mixed- Primary Mixed hyperlipidemia [facility] Diagnosis Moderate mitral regurgitation by prior echocardiogram- Primary Mitral valve disorders Moderate pulmonary hypertension (HCC) SOB (shortness of breath) Shortness of breath Chronic congestive heart failure, unspecified heart failure type (HCC) History of CO (myocardial infarction) Old myocardial infarction documented [facility] this encounter [facility] Diagnosis Chronic congestive heart failure, unspecified heart failure type (HCC) PATEL (dyspnea on exertion) Other dyspnea and respiratory abnormality documented in this encounter [facility] N[facility]* Outpatient Procedure (Routine) - Closed Specialty Diagnoses / Procedures Referred By Felix dodson [facility] Diagnoses Chronic congestive heart failure, unspecified heart failure type (HCC) PATEL (dyspnea on exertion) Procedures ECHO ECHO TTHRC R-T 2D W/WOM-MODE COMPL SPEC&COLR D Amanda Bolivar APRN.PRESSURE CONTROL SUPERVISOR [address] [place] [address] [facility] [address] [place] [address] Referral ID Status Reason Start Date Expiration Date V isits Requested Visits Authorized [id number] Closed Auto-Generate d Referral 04/21/2023 04/20/2024 1 1 [facility] Reason for Referral Specialty Diagnoses / Procedures Referred By Felix dodson Referred To Contact Cardiology Diagnoses Moderate mitral regurgitation by prior echocardiogram Moderate pulmonary hypertension (HCC) SOB (shortness of breath) Chronic congestive heart failure, unspecified heart failure type (HCC) History of CO (myocardial infarction) Procedures CONSULT TO CARDIOLOGY OFFICE/OUTPATIENT [facility] 60-74 MINUTES Amanda Bolivar, HERBER.PRESSURE CONTROL SUPERVISOR [address] [place] [address] Referral ID Status Reason Start Date Expiration Date Visits Requested Visits Authorized [id number] Authorized PCP Requested Referral 09/15/2023 09/14/2024 1 [...] or prosecute any alcohol or drug abuse patient.[facility] the event this information is protected by the Federal Confidentiality of Alcohol and Drug Abuse Patient Records regulations: The Federal rules restrict any use of the information to criminally investigate or prosecute any alcohol or drug abuse patient.[facility] the event this information is protected by the Federal Confidentiality of Alcohol and Drug Abuse Patient Records regulations: The Federal rules restrict any use of the information to criminally investigate or prosecute any alcohol or drug abuse patient.[facility] the event this information is protected by the Federal Confidentiality of Alcohol and Drug Abuse Patient Records regulations: The Federal rules restrict any use of the information to criminally investigate or prosecute any alcohol or drug abuse patient.[facility] the event this information is protected by the Federal Confidentiality of Alcohol and Drug Abuse Patient Records regulations: The Federal rules restrict any use of the information to criminally investigate or prosecute any alcohol or drug abuse patient.[facility] the event this information is protected by the Federal Confidentiality of Alcohol and Drug Abuse Patient Records regulations: The Federal rules restrict any use of the information to criminally investigate or prosecute any alcohol or drug abuse patient.[facility] the event this information is protected by the Federal Confidentiality of Alcohol and Drug Abuse Patient Records regulations: The Federal rules restrict any use of the information to criminally investigate or prosecute any alcohol or drug abuse patient.[facility] the event this information is protected by the Federal Confidentiality of Alcohol and Drug Abuse Patient Records regulations: The Federal rules restrict any use of the information to criminally investigate or prosecute any alcohol or drug abuse patient.[facility] the event this information is protected by the Federal Confidentiality of Alcohol and Drug Abuse Patient Records regulations: The Federal rules restrict any use of the information to criminally investigate or prosecute any alcohol or drug abuse patient.[facility] Reason for Visit (unrecogniz ed section and content) Reason Comments Results Reason Comments Forms Reason Comments Refill Request Potassium Reason Comments Shortness of Breath Gradually getting wo rse Reason Comments Orders Care Teams (unrecognized sec tion and content) Milk Tester Relationship Specialty Start Date End Date Danita Barraza MD [address] [place] [address] PCP - General Family Practice 09/02/19 Jf Escobar [address] [facility] [address] [place] [address] Physician Cardiology 09/04/19 Milk Tester Relationship Specialty Start Date End Date Danita Barraza MD [address] [place] [address] PCP - General Family Practice 09/02/19 Jf Escobar [address] [place] [address] Physician Cardiology 09/04/19 Milk Tester Relationship Specialty Start Date End Date Danita Barraza MD [address] [place] [address] PCP - General Family Medicine 09/02/19 Jf Escobar [address] [place] [address] Physician Cardiology 09/04/19 Milk Tester Relationship Specialty Start Date End Date Danita Barraza MD [address] [place] [address] PCP - General Family Medicine 09/02/19 Jf Escobar [address] [place] [address] Physician Cardiology 09/04/19 Milk Tester Relationship Specialty Start Date End Date Danita Barraza MD [address] [place] [address] PCP - General Family Medicine 09/02/19 Jf Escobar [address] [address] Physician Cardiology 09/04/19 Milk Tester Relationship Specialty Start Date End Date Danita Barraza MD [address] [place] [address] PCP - General Family Medicine 09/02/19 Jf Escobar [address] [address] Physician Cardiology 09/04/19 Milk Tester Relationship Specialty Start Date End Date Danita Barraza MD [address] [place] [address] PCP - General Family Medicine 09/02/19 Jf Escobar MD [address] [facility] [address] [place], [place] [address] Physician Cardiology 09/04/19 Milk Tester Relationship Specialty Start Date End Date Danita Barraza MD [address] [place], [place] [address] PCP - General Family Medicine 09/02/19 Jf Escobar MD [address] [facility] [address] [place], [place] [address] Physician Cardiology 09/04/19 (unrecognized sect ion and [...] BE BASED ON THE PRIMARY CLINICAL RECORDS. [employer] provides no warranty or guarantee of the accuracy or completeness of information in this document.
== END | disposition home or self-care (01) ==
LOC: LAB 16:51
PROVIDERS: PCP Family Medicine; Referring Provider Nurse Practitioner Gerontology; Visit Provider Nurse Practitioner Gerontology
DX: Z00.00 Encounter for general adult medical examination without abnormal findings (principal)

== ENCOUNTER → 2023-12-21 | Outpatient (CLI) | payer MEDICARE, SELFPAY | END | disposition home or self-care (01) | PROVIDERS: PCP Family Medicine; Referring Provider Internal Medicine Critical Care Medicine; Visit Provider Internal Medicine Critical Care Medicine | DX: I27.20 Pulmonary hypertension, unspecified (principal) | CPT/HCPCS: 94060; 94726; 94729 ==

== ENCOUNTER → 2023-12-26 | Outpatient (CLI) | payer MEDICARE, SELFPAY ==
[2023-12-26 13:15] VITALS: PULSE 62; PULSE 69; PULSE 75; PULSE 78; PULSE 79; PULSE 80; PULSE 82; PULSE 84; O2SAT 86; O2SAT 90; O2SAT 92; O2SAT 93; O2SAT 94; O2SAT 96; O2SAT 98
--- NOTE | 2023-12-26 13:48 | CPS ---
pt arrived on room air. Pt said he does have 1.5L oxygen at home but doesnt wear when he goes out of house. Started test on room air and at 2min of test he dropped to 86%. Placed him on 1.5L and walked the rest of the test with saturations above 90.
--- OUTSIDE RECORDS SUMMARY | 2023-12-26 14:44 | XMS RPT_ITS | CCD ---
Author Name Unknown Address [address] [place] [address] Organization [facility] Care Team Providers Care Security Project Manager Name Role Phone Danita Barraza MD Primary Care Provider Jf Escobar Unavailable DANITA BARRAZA Primary Care Unavailable AMANDA BOLIVAR Attending Unavailable DANITA BARRAZA Primary Care Unavailable AMANDA BOLIVAR Referring Unavailable DANITA BARRAZA Primary Care Unavailable AMANDA BOLIVAR Referring Unavailable DANITA BARRAZA Primary Care Unavailable AMANDA BOLIVAR Attending Unavailable Medications Current Medications Medication Drug Class(es) [...] by mouth once daily. 0 Active Problems Active Problems Problem Classification Problem Date Documented [...] Translations: [Other forms of dyspnea] 09-14-2023 Episodic Pulmonary heart disease (1 source) Pulmonary hypertension, unspecified; Translations: [Other chronic pulmonary heart diseases] 09-15-2023 Chronic Past or Other Problems Problem Classification Problem Date Documented Da te Episodic/Chronic Other lower respiratory disease (1 source) Other forms of dyspnea; Translations: [PATEL (dyspnea on exertion)] Onset: 09-14-2023 Episodic Results Test Name Value Interpretation Reference Range Facil ity Vital Signs Date Time Vital Sign Value Performing Clinician Tod casiano 09-15-2023 13:54-0400 Body temperature 99.1 [degF] Amanda Bolivar APRN.CNP Work Phone: [facility] 09-15-2023 13:54-0400 Body weight 85.91 kg Amanda Bolivar APRN.CNP Work Phone: [facility] 09-15-2023 13:54-0400 Diastolic blood pressure 78 mm[Hg] Amanda Bolivar APRN.CNP Work Phone: [facility] 09-15-2023 13:54-0400 Heart rate 69 /min Amanda Bolivar APRN.CNP Work Phone: [facility] 09-15-2023 13:54-0400 Respiratory rate 24 /min Amanda Bolivar APRN.CNP Work Phone: [facility] 09-15-2023 13:54-0400 SaO2% (BldA) [Mass fraction] 95 % Amanda Bolivar APRN.CNP Work Phone: [facility] 09-15-2023 13:54-0400 Systolic blood pressure 149 mm[Hg] Amanda Bolivar APRN.SEAMING MACHINE OPERATOR Work Phone: [facility] 03-18-2022 12:10-0400 Body temperature 97.11 [degF] Amanda Bolivar APRN.SEAMING MACHINE OPERATOR Work Phone: [facility] 03-18-2022 12:10-0400 Body weight 86.18 kg Amanda Bolivar APRN.CNP Work Phone: [facility] 03-18-2022 12:10-0400 Diastolic blood pressure 84 mm[Hg] Amanda Bolivar APRN.CNP Work Phone: [facility] 03-18-2022 12:10-0400 Heart rate 76 /min Amanda Bolivar APRN.SEAMING MACHINE OPERATOR Work Phone: [facility] 03-18-2022 12:10-0400 Respiratory rate 16 /min Amanda Bolivar APRN.CNP Work Phone: [facility] 03-18-2022 12:10-0400 Systolic blood pressure 122 mm[Hg] Aamnda Bolivar APRN.CNP Work Phone: [facility] Encounters Encounter Date Encounter Type Care Provider [...] panel - Serum or Plasma Lipid Screening [facility] Start: 04-21-2028 LIPID SCREEN LIPID SCREEN [facility] Start: 03-19-2027 LIPID SCREEN LIPID SCREEN [facility] Start: 05-12-2026 LIPID SCREEN LIPID SCREEN [facility] Start: 04-21-2026 DIABETES SCREEN DIABETES SCREEN [facility] Start: 04-21-2026 Diabetes Screening Diabetes Screening [facility] Start: 03-19-2025 DIABETES SCREEN DIABETES SCREEN [facility] Start: 09-15-2024 Annual PCP Team Chronic Disease Visit Annual PCP Team Chronic Disease Visit [facility] Start: 05-12-2024 DIABETES SCREEN DIABETES SCREEN [facility] Start: 04-21-2024 ANNUAL PCP TEAM CHRONIC DISEASE VISIT ANNUAL PCP TEAM CHRONIC DISEASE VISIT [facility] Start: 04-21-2024 BP CONTROLLED (<130/80) BP CONTROLLED (<130/80) [facility] Start: 07-14-2023 Covid-19 Vaccine () Covid-19 Vaccine () [facility] Start: 07-14-2023 Influenza vaccination [facility] Start: 03-18-2023 ANNUAL PCP TEAM CHRONIC DISEASE VISIT ANNUAL PCP TEAM CHRONIC DISEASE VISIT [facility] Start: 03-18-2023 COLORECTAL CANCER SCREENING COLORECTAL CANCER SCREENING [facility] Start: 03-18-2023 FECAL OCCULT BLOOD FECAL OCCULT BLOOD [facility] Start: 09-21-2022 End: 11-21-2022 Comprehensive metabolic 2000 panel - Serum or Plasma COMP METABOLIC PANEL Lab Routine Hyperlipidemia, mixed Expected: 09/21/2022 (Approximate), Expires: 11/21/2022 [facility] Work Phone: Immunizations Immunization Date Immunization Notes Care Provider Fa cility 03-18-2022 pneumococcal polysaccharide vaccine, 23 valent Amanda Bolivar APRN.CNP Work Phone: [facility] 09-10-2021 influenza, high-dose , quadrivalent vaccine (FLUZONE HIGH DOSE QUADRIVALENT) Amanda Bolivar APRN.CNP Work Phone: [facility] 09-10-2021 influenza virus vacc ine, unspecified formulation Amanda Bolivar APRN.SEAMING MACHINE OPERATOR Work Phone: [facility] 09-02-2019 influenza, high dose seasonal, preservative-free Amanda Bolivar APRN.SEAMING MACHINE OPERATOR Work Phone: [facility] 09-02-2019 pneumococcal conjuga te vaccine, 13 valent Amanda Bolivar APRN.SEAMING MACHINE OPERATOR Work Phone: [facility] Payers Date Payer Category Payer Medicare MEDICARE MEDICAR E A AND B [id number] 2016-Present [phone] [id number] [place] [id number] Medicare [id number] 2016 Medicare MEDICARE MEDICAR E A AND B [id number] 2016-Present [phone] [id number] [place] [id number] Medicare [id number] 2016 Medicare [id number] Social History Date Type Detail Facility Start: 09-02-2019 End: 04-21-2023 Tobacco smoking status NHIS Never smoked tobacco [facility] Start: 09-02-2019 End: 04-21-2023 Tobacco use and exposure Smokeless tobacco non-user [facility] Start: 03-18-2022 End: 04-21-2023 Alcohol intake Ex-drinker (finding) [facility] Start: 09-23-2019 End: 12-25-2019 History SDOH Alcohol Frequency 1 [facility] Start: 12-25-2019 History SDOH Alcohol Std Drinks 98 [facility] Start: 09-23-2019 History SDOH Social Connections Phone 5 [facility] Start: 09-23-2019 History SDOH Social Connections Orthodox 3 [facility] Start: 09-23-2019 History SDOH Social Connections Membership 2 [facility] Start: 09-23-2019 History SDOH Physica l Activity DPW 0 [facility] Start: 1950 Sex Assigned At Not on file [facility] Start: 03-08-2022 End: 03-18-2022 Exposure to SARS-CoV-2 (event) Not sure [facility] Start: 10-20-2020 End: 04-21-2023 History of Social function [facility] Work Phone: Start: 10-20-2020 End: 04-21-2023 Tobacco use panel [facility] Work Phone: Adult Depression Scr eening Assessment 0 [facility] Work Phone: Do you belong to any clubs or organizations such as orthodox groups, unions, fraternal or athletic groups, or school groups? No [facility] Are you now , , , , never or living with a partner? [facility] How often to you hav e a drink containing alcohol? Never [facility] Do you feel stress - tense, restless, nervous, or anxious, or unable to sleep at night because your mind is troubled all the time - these days [OSQ] Not at all [facility] (I/We) worried wheellie er (my/our) food would run out before (I/we) got money to buy more. Never true [facility] Clinical Notes 03-18-2022 to 09-15-2023 Telephone Encounter - Vanessa Webber MA - 09/15/2023 2:41 PM EDTCAmanda velazquez APRN.CNP - 09/15/2023 1:20 PM EDTTelephone Encounter - Paige Navarrete Ma - 06/16/2023 4:05 PM EDT Note Date & Type Note Facility 09-15-2023 Note HNO ID: [id number] Author: Amanda Bolivar APRN.IVA Service: ? Author [...] cardiac history. This includes congestive heart failure, ME, CABG. All of these took place prior to moving to [place]. Was living in [place]. He is not followed by cardiology. He [...] wheezing, rhonchi, rales.. Heart: Positive findings: murmur: /6 mid systolic low pitched soft murmur ULSB [...] Lymph 1.00 - 4.00 k/uL 0.99 (L) [place]% % 9.5 Abs [place] <0.87 k/uL 0.47 Eosin% % 7.5 Abs [...] - POLYSOMNOGRAM (PSG) (more content not included)... [facility] 09-15-2023 Miscellaneous Notes Formattin g of this note might be different from the original. Faxed order for O2 CONCENTRATOR to [facility] [phone] with demographic & 09/15/23 OV note. Faxed order for PSG STUDY to [facility] [phone] with demographic & 09/15/23 OV note. Vanessa Webber MA documented in this encounter [facility] 09-15-2023 History of Presen t illness Narrative [...] cardiac history. This includes congestive heart failure, ME, CABG. All of these took place prior to moving to [place]. Was living in [place]. He is not followed by cardiology. He [...] Lymph 1.00 - 4.00 k/uL 0.99 (L) [place]% % 9.5 Abs [place] <0.87 k/uL 0.47 Eosin% % 7.5 Abs [...] - CONSULT TO CARDIOLOGY 5. History of ME (myocardial infarction) - ICD9: 412, ICD10: I25.2 - PORTABLE OXYGEN CONCENTRATOR - CONSULT TO CARDIOLOGY Amanda Bolivar APRN.IVA Handkelip gardenia printed. [place] [facility] This note was partly generated using [employer] voice recognition dictation and may contain some misspelled or inaccurate words missed on review. documented in this encounter [facility] 06-16-2023 Miscellaneous Notes Formattin g of this note is different from the original. The following approved medication requests have been transmitted electronically. Requested Prescriptions Signed Prescriptions Disp Refills potassium chloride (K-TAB) 10 mEq tablet 90 tablet 3 Sig: Take 1 tablet by mouth daily with breakfast. Authorizing Provider: DANITA BARRAZA Ma OK for potassium tabs as ordered Danita Barraza MD [facility] calling regarding script received for Effer-K 10 mEq on 06/14. States patient would like regular potassium pills if possible. Asking if provider would send new script indicating this request, if possible. Thank you. documented in this encounter [facility] 06-14-2023 Miscellaneous Notes Formattin g of this [...] advise. Zulema Underwood documented in this encounter [facility] 04-21-2023 Note HNO ID: [id number] Author: Amanda Bolivar APRN.CNP Service: ? Author Type: Nurse Practitioner Type: Progress Notes Filed: 04/21/2023 10:19 AM Note Text: Ishan Morales is a 72 year old male here for a Medicare Initial Annual Wellness Visit Health Risk Assessment In general, health is: Good Concerns with balance:Several days Uses a cane Concerns with teeth or dentures:Not at all Concerns with sexual function:Not at all [place] anxious, stressed, angry, irritable, lonely, isolated, or [...] for Welcome to Medicare): follows with optometry/ophthalmology [facility] Hearing Evaluation: within normal limits Assessment/Plan Counseling - Counseled on healthy diet and regular exercise - Fall avoidance - Colorectal cancer screening recommended - agrees to iFOBT testing - Lipid panel - Diabetes screening Lifestyle screening - Depression screening Amanda Bolivar APRN.IVA [facility] 04-21-2023 Note HNO ID: [id number] Author: Amanda Bolivar APRN.IVA Service: ? Author [...] for refills. He does follow up with [facility] overdue for follow-up. Overall denies any chest pain or dizziness. Patient states that he is short of breath at times. Gives example of bending over or walking long distances. States that this has been present since around White time, approximately 6 months ago. He denies [...] ordered, asked patient to get back to [facility]. - CARVEDILOL 6.25 MG TABLET - [...] Egan - CONSULT TO DERMATOLOGY Amanda Bolivar APRN.SEAMING MACHINE OPERATOR RTO in 6 months, sooner if needed. This note was partly generated using [employer] voice recognition dictation and may contain some misspelled or inaccurate words missed on review. [facility] 04-18-2022 Miscellaneous Notes Faxed back to number below. Paige Navarrete Ma Form done Danita Barraza MD Office received fax from [facility] for Oxygen. Please review and complete. Routed to PCP. Once completed fax to [phone]. Paige Navarrete Ma documented in this encounter [facility] 03-22-2022 Miscellaneous Notes Letter mailed to pt home of results. Mary Kelly MA Pt was left a vm to return call. Please inform patient that his labs look fine. Continue with current medications and follow up in 6 months. Amanda Bolivar APRN.CNP documented in this encounter [facility] 03-18-2022 History of Presen t illness Narrative Chief Complaint Patient presents with: Follow Up HPI Kylahcullen Morales is a 71 year old male [...] needed. This note was partly generated using [employer] voice recognition dictation and may contain some misspelled or inaccurate words missed on review. documented in this encounter [facility] 03-18-2022 Instructions Amanda Bolivar APRN.CNP - 03/18/2022 12:17 PM EDT 1. Get blood work completed. 2. Refills sent. 3. Follow up in 6 months. documented in this encounter [facility] documented [facility] Diagnosis Hyperlipidemia, mixed- Primary Mixed hyperlipidemia [facility] Diagnosis Moderate mitral regurgitation by prior echocardiogram- Primary Mitral valve disorders Moderate pulmonary hypertension (HCC) SOB (shortness of breath) Shortness of breath Chronic congestive heart failure, unspecified heart failure type (HCC) History of ME (myocardial infarction) Old myocardial infarction documented [facility] this encounter [facility]* Diagnosis Chronic congestive heart failure, unspecified heart failure type (HCC) PATEL (dyspnea on exertion) Other dyspnea and respiratory abnormality [facility] Outpatient Procedure (Routine) - Closed Specialty Diagnoses / Procedures Referred By Felix dodson [facility] Diagnoses Chronic congestive heart failure, unspecified heart failure type (HCC) PATEL (dyspnea on exertion) Procedures ECHO ECHO TTHRC R-T 2D W/WOM-MODE COMPL SPEC&COLR D Amanda Bolivar APRN.SEAMING MACHINE OPERATOR [address] [place] [address] [facility] [address] [place] [address] Referral ID Status Reason Start Date Expiration Date V isits Requested Visits Authorized [id number] Closed Auto-Generate d Referral 04/21/2023 04/20/2024 1 1 [facility] Reason for Referral Specialty Diagnoses / Procedures Referred By Felix dodson Referred To Contact Cardiology Diagnoses Moderate mitral regurgitation by prior echocardiogram Moderate pulmonary hypertension (HCC) SOB (shortness of breath) Chronic congestive heart failure, unspecified heart failure type (HCC) History of ME (myocardial infarction) Procedures CONSULT TO CARDIOLOGY OFFICE/OUTPATIENT [facility] HIGH MDM 60-74 MINUTES Amanda Bolivar APRN.SEAMING MACHINE OPERATOR [address] [place] [address] Referral ID Status Reason Start Date Expiration Date Visits Requested Visits Authorized [id number] Authorized PCP Requested Referral 09/15/2023 09/14/2024 1 [...] or prosecute any alcohol or drug abuse patient.[facility] the event this information is protected by the Federal Confidentiality of Alcohol and Drug Abuse Patient Records regulations: The Federal rules restrict any use of the information to criminally investigate or prosecute any alcohol or drug abuse patient.[facility] the event this information is protected by the Federal Confidentiality of Alcohol and Drug Abuse Patient Records regulations: The Federal rules restrict any use of the information to criminally investigate or prosecute any alcohol or drug abuse patient.[facility] the event this information is protected by the Federal Confidentiality of Alcohol and Drug Abuse Patient Records regulations: The Federal rules restrict any use of the information to criminally investigate or prosecute any alcohol or drug abuse patient.[facility] the event this information is protected by the Federal Confidentiality of Alcohol and Drug Abuse Patient Records regulations: The Federal rules restrict any use of the information to criminally investigate or prosecute any alcohol or drug abuse patient.[facility] the event this information is protected by the Federal Confidentiality of Alcohol and Drug Abuse Patient Records regulations: The Federal rules restrict any use of the information to criminally investigate or prosecute any alcohol or drug abuse patient.[facility] the event this information is protected by the Federal Confidentiality of Alcohol and Drug Abuse Patient Records regulations: The Federal rules restrict any use of the information to criminally investigate or prosecute any alcohol or drug abuse patient.[facility] the event this information is protected by the Federal Confidentiality of Alcohol and Drug Abuse Patient Records regulations: The Federal rules restrict any use of the information to criminally investigate or prosecute any alcohol or drug abuse patient.[facility] the event this information is protected by the Federal Confidentiality of Alcohol and Drug Abuse Patient Records regulations: The Federal rules restrict any use of the information to criminally investigate or prosecute any alcohol or drug abuse patient.[facility] Reason for Visit (unrecogniz ed section and content) Reason Comments Results Reason Comments Forms Reason Comments Refill Request Potassium Reason Comments Shortness of Breath Gradually getting wo rse Reason Comments Orders Care Teams (unrecognized sec tion and content) Security Project Manager Relationship Specialty Start Date End Date Danita Barraza MD [address] [place] [address] PCP - General Family Practice 09/02/19 Jf Escobar [address] [address] Physician Cardiology 09/04/19 Security Project Manager Relationship Specialty Start Date End Date Danita Barraza MD [address] [place] [address] PCP - General Family Practice 09/02/19 Jf Escobar [address] [place] [address] Physician Cardiology 09/04/19 Security Project Manager Relationship Specialty Start Date End Date Danita Barraza MD [address] [place] [address] PCP - General Family Medicine 09/02/19 Jf Escobar [address] [place] [address] Physician Cardiology 09/04/19 Security Project Manager Relationship Specialty Start Date End Date Danita Barraza MD [address] [place] [address] PCP - General Family Medicine 09/02/19 Jf Escobar [address] [place] [address] Physician Cardiology 09/04/19 Security Project Manager Relationship Specialty Start Date End Date Danita Barraza MD [address] [place] [address] PCP - General Family Medicine 09/02/19 Jf Escobar [address] [address] Physician Cardiology 09/04/19 Security Project Manager Relationship Specialty Start Date End Date Danita Barraza MD [address] [place] [address] PCP - General Family Medicine 09/02/19 Jf Escobar [address] [address] Physician Cardiology 09/04/19 Security Project Manager Relationship Specialty Start Date End Date Danita Barraza MD [address] [place] [address] PCP - General Family Medicine 09/02/19 Jf Escobar MD [address] [facility] [address] [place], [place] [id number] Physician Cardiology 09/04/19 Security Project Manager Relationship Specialty Start Date End Date Danita Barraza MD [address] [place] [address] PCP - General Family Medicine 09/02/19 Jf Escobar MD [address] [facility] [address] [place] [address] Physician Cardiology 09/04/19 (unrecognized sect ion and [...] BE BASED ON THE PRIMARY CLINICAL RECORDS. [employer] provides no warranty or guarantee of the accuracy or completeness of information in this document.
--- NOTE | 2023-12-28 05:48 | PCM.PSN.6M ---
PSN 6 Minute Walk Test 6 Minute Walk Test 6 Minute Walk Test: 6 Minute Walk Test PSN:6-Minute Walk Test Start: 12/26/23 13:40 Freq: Status: Active Protocol: [id number].6MINW Document 12/26/23 13:15 EW (Rec: 12/26/23 13:49 EW [id number]) 6 Minute Walk Test Date Performed 12/26/23 Time Performed 13:00 Height 5 ft 9 in Weight: 81.647 kg Weight in Pounds 180.0 lbs Assistive device used: Cane Pre-test Oxygen Delivery Method Room Air Pulse Ox 94 Pulse Rate (60-100) 69 Dyspnea Poli Scale (0-10) 2 Exertion Poli Scale (6-20) 6 1st minute Oxygen Delivery Method Room Air Pulse Ox 92 Pulse Rate (60-100) 75 2nd minute Oxygen Delivery Method Room Air Pulse Ox 86 Pulse Rate (60-100) 80 3rd minute Oxygen Flow Rate (L/min) 1.5 Oxygen Delivery Method Nasal Cannula Pulse Ox 96 Pulse Rate (60-100) 78 4th minute Oxygen Flow Rate (L/min) 1.5 Oxygen Delivery Method Nasal Cannula Pulse Ox 94 Pulse Rate (60-100) 82 5th minute Oxygen Flow Rate (L/min) 1.5 Oxygen Delivery Method Nasal Cannula Pulse Ox 90 Pulse Rate (60-100) 84 6th minute Oxygen Flow Rate (L/min) 1.5 Oxygen Delivery Method Nasal Cannula Pulse Ox 93 Pulse Rate (60-100) 79 Post-test Oxygen Flow Rate (L/min) 1.5 Oxygen Delivery Method Nasal Cannula Pulse Ox 98 Pulse Rate (60-100) 62 Dyspnea Poli Scale (0-10) 3 Exertion Poli Scale (6-20) 11 Full Laps Walked 12 Partial Lap, Number of Tiles Walked 0 Total Distance Walked (ft) 708 12/26/23 13:48 Cardiopulmonary Services by Ksenia Chapa pt arrived on room air. Pt said he does have 1.5L oxygen at home but doesnt wear when he goes out of house. Started test on room air and at 2min of test he dropped to 86%. Placed him on 1.5L and walked the rest of the test with saturations above 90. Initialized on 12/26/23 13:48 - END OF NOTE Interpretation Interpretation: The patient was noted to be 94% on room air, but desaturated to 86% within 2 minutes. Patient was placed on 1-1/2 L and saturations were maintained throughout testing. In total, the patient traveled 708 feet over the course of 6 minutes with the assistance of a cane and 1 break. These findings are consistent with a respiratory limitation exercise tolerance. Recommendations Recommendations: No supplemental oxygen is indicated at [facility], but patient should be using 1-1/2 L with any exertion.
== END | disposition home or self-care (01) ==
PROVIDERS: PCP Family Medicine; Referring Provider Nurse Practitioner Family; Visit Provider Nurse Practitioner Family
DX: G47.33 Obstructive sleep apnea (adult) (pediatric) (principal)
CPT/HCPCS: 94618; 95811

== ENCOUNTER → 2024-01-15 | Outpatient (CLI) | payer MEDICARE, SELFPAY | END | disposition home or self-care (01) | PROVIDERS: PCP Family Medicine; Referring Provider Nurse Practitioner Acute Care; Visit Provider Nurse Practitioner Acute Care | DX: G47.33 Obstructive sleep apnea (adult) (pediatric) (principal) | CPT/HCPCS: 95811 ==

== ENCOUNTER → 2024-01-30 | Outpatient (CLI) | payer MEDICARE, SELFPAY | END | disposition home or self-care (01) | LOC: SL 20:24 | PROVIDERS: PCP Family Medicine; Referring Provider Nurse Practitioner Acute Care; Visit Provider Nurse Practitioner Acute Care | DX: G47.33 Obstructive sleep apnea (adult) (pediatric) (principal); J96.11 Chronic respiratory failure with hypoxia; J96.12 Chronic respiratory failure with hypercapnia | CPT/HCPCS: 95811 ==

== ENCOUNTER → 2024-02-06 | Outpatient (CLI) | payer MEDICARE, SELFPAY | END | disposition home or self-care (01) | LOC: SL 12:01 | PROVIDERS: PCP Family Medicine; Visit Provider Nurse Practitioner Acute Care | DX: Z46.89 Encounter for fitting and adjustment of other specified devices (principal) ==